=== PATIENT | male | born 1950 | race Caucasian/White ===

== ENCOUNTER 2020-10-13 13:11 | Inpatient (IN) | payer OTHER, SELFPAY ==
[2020-10-13] VITALS (13 sets, daily range): BP systolic 92–145; BP diastolic 49–84; PULSE 81–105; RESP 22–37; TEMP 35.7–36.9; O2SAT 77–96; BMI 39.4
--- NOTE | ~2020-10-13 | XR_ITS ---
EXAMINATION: XR chest 1V portable DATE: 10/22/2020 05:33 INDICATION: COVID-19 pneumonia. ARDS. TECHNIQUE: A single frontal view of the chest was obtained. COMPARISON: Chest single view 10/21/2020 FINDINGS: There are airspace opacities in all lung zones bilaterally. No pleural effusion or pneumoth orax. The heart size is normal. There is a left chest wall pacer with leads in the right atrium and r ight ventricle. The endotracheal tube tip is 3.4 cm above the jarad. The nasogastric tube tip is bey ond the inferior margin of the radiograph, but at least to the stomach. A right subclavian central ve nous catheter is seen with tip in the superior vena cava. IMPRESSION: 1. Diffuse lung disease with mild worsening on the left, consistent with pneumonia versus acute respi ratory distress syndrome (ARDS). Reviewed, dictated and finalized at location A. IMPRESSION: 1. Diffuse lung disease with mild worsening on the left, consistent with pneumo nay versus acute respiratory distress syndrome (ARDS).
--- NOTE | ~2020-10-13 | XR_ITS ---
EXAMINATION: XR chest 1V portable DATE: 10/18/2020 06:05 INDICATION: Acute respiratory failure. COVID-19 pneumonia. TECHNIQUE: A single frontal view of the chest was obtained. COMPARISON: Chest single view 10/17/2020, chest CT 10/13/2020 FINDINGS: There are airspace opacities in all lung zones bilaterally. No pleural effusion or pneumoth orax. The heart size is normal. There is a left chest wall pacer with leads in the right atrium and r ight ventricle. The nasogastric tube tip is beyond the inferior margin of the radiograph, but at leas t to the stomach. The endotracheal tube tip is 2.5 cm above the jarad. A right subclavian central ve nous catheter is seen with tip in the superior vena cava. IMPRESSION: 1. Stable diffuse lung disease, consistent with COVID-19 pneumonia. Reviewed, dictated and finalized at location A.
--- NOTE | ~2020-10-13 | XR_ITS ---
EXAMINATION: XR chest 1V portable INDICATION: COVID 19 pneumonia TECHNIQUE: Portable AP chest at 0532 hours COMPARISON: 10/24/2020 FINDINGS: A right subclavian central venous catheter ends with its tip at the distal superior vena ca va. Patchy bilateral airspace opacities persist in all lung zones without significant change. There i s no pleural effusion or pneumothorax. The cardiomediastinal silhouette is stable. A dual-lead cardia c pacemaker of the left chest wall ends with leads in expected locations. IMPRESSION: 1. Stable diffuse lung disease, consistent with pneumonia and/or pulmonary edema and/or acute respira tory distress syndrome (ARDS). Reviewed, dictated and finalized at location A. IMPRESSION: 1. Stable diffuse lung disease, consistent with pneumonia and/or pulmonary marcia a and/or acute respiratory distress syndrome (ARDS).
--- NOTE | ~2020-10-13 | XR_ITS ---
EXAMINATION: XR chest 1V portable DATE: 10/13/2020 14:56 INDICATION: Shortness of breath TECHNIQUE: frontal view of the chest was obtained. COMPARISON: None FINDINGS: Reticular and patchy airspace opacities throughout both lungs. No pleural effusion or pneumothorax. T he cardiomediastinal silhouette is normal. Dual lead pacemaker seen with leads projecting over the ex pected locations of the right atrium and right ventricle. Moderate thoracic spondylosis. IMPRESSION: 1. Diffuse bilateral lung disease which could represent pulmonary edema or pneumonia. Reviewed, dictated and finalized at location A. IMPRESSION: 1. Diffuse bilateral lung disease which could represent pulmonary edema or pneu monia.
--- NOTE | ~2020-10-13 | XR_ITS ---
EXAMINATION: XR abdomen NG/feed tube insert DATE: 10/17/2020 09:34 INDICATION: Nasogastric tube placement. TECHNIQUE: A supine view of the abdomen was obtained. COMPARISON: None. FINDINGS: The lower abdomen is excluded. The nasogastric tube tip is in the stomach. IMPRESSION: 1. Nasogastric tube tip in the stomach. Reviewed, dictated and finalized at location A.
--- NOTE | ~2020-10-13 | XR_ITS ---
EXAMINATION: XR chest 1V portable EXAM DATE: 10/19/2020 09:40 INDICATION: Acute respiratory failure, COVID-19 pneumonia. TECHNIQUE: Portable AP frontal chest x-ray was obtained. Comparison is made to prior examination from 10/18/2020. FINDINGS: Endotracheal tube tip is 2-3 centimeters above the jarad. Feeding tube is in position as is the right subclavian venous line. There is a dual lead pacemaker/AICD seen with leads projecting o denny the expected locations of the right atrial appendage and right ventricle. Diffuse bilateral airspace disease with relative sparing of the upper lung zones, pneumonia and/or ed leonie. Probably COVID pneumonia given history provided. Small left pleural effusion. There is no pneu mothorax suspected. The cardiomediastinal silhouette is prominent but magnified on this AP techniqu e. Mild thoracic spondylosis. There is no significant interval change compared to prior exam. IMPRESSION: 1. Line and tube(s) in position. 2. Diffuse airspace disease unchanged. 3. Small left pleural effusion. Reviewed, dictated and finalized at location A.
--- NOTE | ~2020-10-13 | XR_ITS ---
EXAMINATION: XR chest 1V portable DATE: 10/20/2020 05:53 INDICATION: COVID-19 pneumonia. TECHNIQUE: A single frontal view of the chest was obtained. COMPARISON: Chest single view 10/19/2020 FINDINGS: There are airspace opacities in all lung zones bilaterally. No pleural effusion or pneumoth orax. The heart size is normal. There is a left chest wall pacer with leads in the right atrium and r ight ventricle. The endotracheal tube tip is 2.2 cm above the jarad. The nasogastric tube tip is in the stomach. IMPRESSION: 1. Diffuse lung disease with worsening on the right, consistent with COVID-19 pneumonia. Reviewed, dictated and finalized at location A. IMPRESSION: 1. Diffuse lung disease with worsening on the right, consistent with COVID-19 p neumonia.
--- NOTE | ~2020-10-13 | XR_ITS ---
XR chest 1V portable DATE: 10/24/2020 05:56 INDICATION: Covid 19 pneumonia, adult respiratory distress syndrome TECHNIQUE: Portable AP chest on 10/24/2020 at 0533 hours COMPARISON: 10/23/2020 portable AP chest at 0521 hours FINDINGS: ET and NG tubes have been removed since 10/23/2020. Right subclavian central venous catheter remains, with tip near superior cavoatrial junction. Left dual-lead pacemaker device with leads overlying right atrium and right ventricle. Cardiomegaly. There is pulmonary vascular congestion. There are extensive bilateral pulmonary infiltrates, increase d since 10/23/2020, consistent with bilateral pneumonia and/or pulmonary edema. IMPRESSION: Removal of ET and NG tubes Extensive bilateral infiltrates, increased since 10/23/2020 Reviewed, dictated and finalized at location A.
--- NOTE | ~2020-10-13 | XR_ITS ---
EXAMINATION: XR chest 1V portable DATE: 10/17/2020 05:57 INDICATION: Acute respiratory failure. COVID-19 pneumonia. TECHNIQUE: A single frontal view of the chest was obtained. COMPARISON: Chest single view 10/16/2020 FINDINGS: There are airspace opacities involving all lung zones bilaterally. No pleural effusion or p neumothorax. The heart size is normal. There is a left chest wall pacer with leads in the right atriu m and right ventricle. IMPRESSION: 1. Stable diffuse lung disease, consistent with COVID-19 pneumonia. Reviewed, dictated and finalized at location A.
--- NOTE | ~2020-10-13 | XR_ITS ---
EXAMINATION: XR chest 1V portable DATE: 10/16/2020 05:45 INDICATION: Acute respiratory failure. COVID-19 pneumonia. TECHNIQUE: A single frontal view of the chest was obtained. COMPARISON: Chest single view 10/15/2020, chest CT 10/13/2020 FINDINGS: There are patchy airspace opacities throughout the lungs bilaterally. No pleural effusion o r pneumothorax. The heart size is normal. There is a left chest wall pacer with leads in the right at rium and right ventricle. IMPRESSION: 1. Stable diffuse lung disease, consistent with COVID-19 pneumonia. Reviewed, dictated and finalized at location A.
--- NOTE | ~2020-10-13 | XR_ITS ---
EXAMINATION: XR chest 1V portable INDICATION: COVID 19 pneumonia TECHNIQUE: Portable AP chest at 0540 hours COMPARISON: 10/25/2020 FINDINGS: A right subclavian central venous catheter ends with its tip in the distal superior vena ca va. The cardiomediastinal silhouette is stable. Patchy bilateral airspace opacities persist without s ignificant change. There is no pleural effusion or pneumothorax. A dual-lead cardiac pacemaker of the left chest wall ends with leads in expected locations. IMPRESSION: 1. Stable diffuse lung disease, consistent with pneumonia and/or pulmonary edema and/or acute respira tory distress syndrome (ARDS). Reviewed, dictated and finalized at location A. IMPRESSION: 1. Stable diffuse lung disease, consistent with pneumonia and/or pulmonary marcia a and/or acute respiratory distress syndrome (ARDS).
--- NOTE | ~2020-10-13 | XR_ITS ---
XR chest 1V portable DATE: 10/15/2020 05:34 INDICATION: Acute respiratory failure. Covid 19 pneumonia. TECHNIQUE: Portable AP chest on 10/15/2020 at 0518 hours COMPARISON: 10/13/2020 portable AP chest FINDINGS: There are extensive diffuse bilateral pulmonary infiltrates, increased mildly in severity c ompared to 10/13/2020. No pleural effusion or pneumothorax is evident. Normal heart size. Left-sided dual-lead pacemaker with leads overlying right atrium and right ventric le. IMPRESSION: Extensive bilateral pulmonary infiltrates, mildly increased since 10/13/2020 Reviewed, dictated and finalized at location A.
--- NOTE | ~2020-10-13 | XR_ITS ---
EXAMINATION: XR chest port-a-cath/central DATE: 10/17/2020 09:53 INDICATION: Central line placement. TECHNIQUE: A single frontal view of the chest was obtained. COMPARISON: Chest single view at 9:20 AM FINDINGS: There are airspace opacities in all lung zones bilaterally. No pleural effusion or pneumoth orax. The heart size is normal. The endotracheal tube tip is 3.5 cm above the jarad. A right subclav jasson central venous catheter is seen with tip at the superior cavoatrial junction. The nasogastric tub e tip is in the stomach. There is a left chest wall pacer with leads in the right atrium and right ve ntricle. IMPRESSION: 1. Central line tip at superior cavoatrial junction. 2. Stable diffuse lung disease consistent with COVID-19 pneumonia. Reviewed, dictated and finalized at location A.
--- NOTE | ~2020-10-13 | XR_ITS ---
EXAMINATION: XR chest ET placement DATE: 10/17/2020 09:36 INDICATION: Intubation. TECHNIQUE: A single frontal view of the chest was obtained. COMPARISON: Chest single view 10/17/2020 at 5:16 AM FINDINGS: There are airspace opacities in all lung zones bilaterally. No pleural effusion or pneumoth orax. The heart size is normal. The endotracheal tube tip is 2.8 cm above the jarad. There is a left chest wall pacer with leads in the right atrium and right ventricle. The nasogastric tube tip is in the stomach. A right subclavian central venous catheter is seen with tip in the left brachiocephalic vein. IMPRESSION: 1. Stable diffuse lung disease, consistent with COVID-19 pneumonia. 2. Right subclavian central venous catheter tip in the left brachiocephalic vein. Reviewed, dictated and finalized at location A. IMPRESSION: 1. Stable diffuse lung disease, consistent with COVID-19 pneumonia. 2. Right subclavian central venous catheter tip in the left brachiocephalic vecatalina kamara.
--- NOTE | ~2020-10-13 | XR_ITS ---
XR chest 1V portable DATE: 10/23/2020 05:22 INDICATION: Covid 19 pneumonia. Adult respiratory distress syndrome. TECHNIQUE: Portable AP chest on 10/23/2020 at 0521 hours COMPARISON: 10/22/2020 portable AP chest at [address] pulmonary scan FINDINGS: There are persistent extensive patchy consolidating infiltrates scattered in both lung fiel ds, relatively stable since 10/22/2020. ET tube in satisfactory position 2.7 cm above jarad. NG tube in stomach. Left dual-lead pacemaker device with leads overlying right atrium and right ventricle. Heart size aisha ears within normal limits. There is slight if any pleural effusion. No pneumothorax. IMPRESSION: Extensive bilateral pulmonary infiltrates, not significantly changed since 10/22/2020 Reviewed, dictated and finalized at location A. IMPRESSION: Extensive bilateral pulmonary infiltrates, not significantly change d since 10/22/2020
--- NOTE | ~2020-10-13 | CT_ITS ---
EXAMINATION: CTA chest PE protocol DATE: 10/13/2020 15:23 INDICATION: Shortness of breath and elevated d-dimer. Covid-positive on 10/09/2020. TECHNIQUE: Computed tomography angiography (CTA) of the chest was performed with 100 mL Omnipaque-350 intravenous contrast timed to evaluate the pulmonary arteries. Coronal maximum intensity projection 3D-reconstructions were created by the technologist. Automated exposure control and iterative reconst ruction technique were employed. Exam dose: 910.16 mGy-cm total exam DLP. COMPARISON: 10/13/2020 portable AP chest FINDINGS: There is diagnostic contrast enhancement of the pulmonary arteries and no evidence of pulmo nary embolism. No thoracic aortic aneurysm or dissection. Normal heart size. There is minimal pericardial effusion. Bilateral mild hilar and mediastinal lymphadenopathy is noted, likely reactive. Extensive patchy groundglass infiltrates are scattered throughout all lobes of both lungs. IMPRESSION: Extensive patchy groundglass infiltrates scattered throughout both lungs, consistent wit h extensive bilateral pneumonia No evidence of pulmonary embolism Minimal pericardial effusion Reviewed, dictated and finalized at Location A. Reviewed, dictated and finalized at location A. IMPRESSION: Extensive patchy groundglass infiltrates scattered throughout both lungs, consistent with extensive bilateral pneumonia No evidence of pulmonary embolism Minimal pericardial effusion
--- NOTE | ~2020-10-13 | XR_ITS ---
EXAMINATION: XR chest 1V portable DATE: 10/21/2020 05:37 INDICATION: COVID-19 pneumonia. TECHNIQUE: A single frontal view of the chest was obtained. COMPARISON: Chest single view 10/20/2020 FINDINGS: There are airspace opacities in all lung zones bilaterally. No pleural effusion or pneumoth orax. The heart size is normal. The endotracheal tube tip is 3.6 cm above the jarad. There is a left chest wall pacer with leads in the right atrium and right ventricle. The nasogastric tube tip is in the stomach. IMPRESSION: 1. Diffuse lung disease with interval improvement, consistent with pneumonia versus acute respiratory distress syndrome (ARDS). Reviewed, dictated and finalized at location A. IMPRESSION: 1. Diffuse lung disease with interval improvement, consistent with pneumonia ve rsus acute respiratory distress syndrome (ARDS).
--- NOTE | 2020-10-13 13:26 | ECG_ITS ---
Measurements Intervals [place] Rate: 94 P: 41 [place]: 146 QRS: -66 QRSD: 100 T: 86 QT: 345 QTc: 432 Interpretive Statements SINUS RHYTHM LOW QRS VOLTAGE IN LIMB LEADS LEFT ANTERIOR FASCICULAR BLOCK BASELINE ARTIFACT- I, II, III, AVR, AVL, AVF, V2-V6 ABNORMAL ECG Electronically Signed On 10-13-2020 13:40:53 CDT by Dale Singleton D.O.
[2020-10-13 14:09] LABS: Basophils Absolute Auto 0.1 K/mm3 (0.0-0.1); Basophils Percent Auto 0.5 % (0.2-1.2); Eosinophils Percent Auto 0.2 % (0-4.4); Hematocrit 44.7 % (42.0-52.0); Hemoglobin 14.3 g/dL (14.0-18.0); Immature Granulocyte Absolute 0.24 K/mm3 (0.00-0.031); Immature Granulocyte Percent A 2.2 % (0-0.5); Lymphocytes Absolute Auto 0.84 K/mm3 (0.9-3.2); Lymphocytes Percent Auto 7.6 % (18.3-44.2); Mean Corpuscular Hemoglobin 29.8 pg (26-34); Mean Corpuscular Volume 93.1 fl (80-100); Mean Platelet Volume 10.2 fl (7.4-10.4); Monocytes Percent Auto 9.4 % (2.6-8.5); Neutrophils Absolute Auto 8.9 K/mm3 (1.3-6.7); Neutrophils Percent Auto 80.1 % (45.5-73.1); Nucleated Red Blood Cells Absolute Auto 0.1 K/mm3 (0.0-0.012); Nucleated Red Blood Cells Perc 0.9 % (0.0-0.2); Platelet Count Result 307 k/mm3 (150-375); Red Cell Distribution Width 15.2 % (11.5-14.5); White Blood Count 11.1 K/mm3 (4.5-10.0)
[2020-10-13] MEDS: ALBUTEROL SULFATE (*SP) AEROSOL 1 PUFF 4 PUFF INHALATION (14:22)
[2020-10-13] MEDS: ENOXAPARIN 120 MG/0.8 ML SYRINGE 110 MG SUB-Q (14:40)
[2020-10-13 14:47] LABS: Lactate Dehydrogenase 1559 U/L (313-618)
[2020-10-13 14:52] LABS: Base Excess ABG 1.3 mEq/l (+/-2.0); HCO3 ABG 24.2 mEq/l (22.0-26.0); Oxygen Saturation ABG 90.7 % (95.0-100.0); PO2 ABG 54.3 mmHg (80.0-100.0)
[2020-10-13 14:53] LABS: Alveolar/Arterial O2 Gradient 221.6 mmHg; Total Hemoglobin 14.2 g/dL (12.0-18.0)
[2020-10-13 14:54] LABS: Device NASAL CANNULA; Fractional Inspired Oxygen 44 %; Modified Allen's Test Pass; Oxygen Content ABG 17.6 %vol (16.0-22.0); Oxyhemoglobin 88.4 % THb (90.0-100.0); PO2 FiO2 Ratio Arterial Blood 1.23 %; Site Drawn LEFT RADIAL
[2020-10-13 14:55] LABS: PCO2 ABG 33.2 mmHg (35.0-45.0)
[2020-10-13 14:56] LABS: Anion Gap 6 mmol/L (8-16); Blood Urea Nitrogen 37 mg/dL (9-20); Calcium 7.9 mg/dL (8.4-10.2); Carbon Dioxide 27 mmol/L (22-30); Chloride 93 mmol/L (98-107); Estimated CRCL calculation 51 ml/min; Estimated Glomerular Filt Rate 50; Glucose 127 mg/dL (75-110); Potassium 4.4 mmol/L (3.4-5.0); Sodium 126 mmol/L (137-145)
--- NOTE | 2020-10-13 15:52 | PC.NURSE ---
Pt satting 84 on 6L of O2. MD consulted, requests 8L nasal cannula.
--- NOTE | 2020-10-13 15:56 | PC.NURSE ---
Pt satting mid to upper 80s on 8L of O2. aware.
--- NOTE | 2020-10-13 16:40 | PC.NURSE ---
Pt called, updated family member on pt status.
--- NOTE | 2020-10-13 16:56 | ED.SOB ---
HPI - SOB/Dyspnea General Chief Complaint: Shortness of Breath/Dyspnea Stated Complaint: shortness of breath, covid-19 Time Seen by Provider: 10/13/20 13:46 Source: patient Mode of arrival: ambulatory Limitations: no limitations History of Present Illness HPI Narrative: 70-year-old male Patient states his son tested positive Covid and the patient in turn was tested and positive for Covid at [facility] on September 29 He became symptomatic a day later with a cough and some aches and some initially very minimal dyspnea Over the past several days his shortness of breath has become progressively worse particularly with any exertion He does not have a fever Related Data Home Medications Medication Instructions Recorded Confirmed Vitamin D3 10/13/20 10/13/20 aspirin 81 mg PO DAILY 10/13/20 ezetimibe mg 10/13/20 fenofibrate nanocrystallized mg PO 10/13/20 lisinopril 10/13/20 metformin mg 10/13/20 Allergies Allergy/AdvReac Type Severity Reaction Status Date / Time No Known Allergies Allergy Verified 10/13/20 16:44 Review of Systems Review of Systems: All systems reviewed & are unremarkable except as noted in HPI and below Constitutional: Constitutional: Reports chills, Reports fatigue, Reports fever(s), Denies headache(s) and Reports weakness Eyes: Eyes: Reports no additional eye complaints and Denies change in vision ENT: Denies headache(s), Denies nasal congestion and Denies sore throat Cardiovascular: Cardiovascular: Denies chest pain and Denies dyspnea Respiratory: Respiratory: Reports cough and Reports dyspnea Gastrointestinal: Gastrointestinal: Denies abdominal pain, Denies constipation, Denies diarrhea, Reports nausea and Denies vomiting Genitourinary: Genitourinary: Denies dysuria and Denies urinary frequency Musculoskeletal: Musculoskeletal: Reports myalgias, Denies deformity, Denies arthralgias, Denies joint swelling and Denies numbness Integumentary/Breasts: Skin/Breast: Denies rash and Denies wounds Neurologic: Reports headache(s), Denies focal weakness and Denies numbness Psychiatric: Psychiatric: Reports no additional psychiatric complaints Endocrine: Endocrine: Reports no additional endocrine complaints Hematologic/Lymphatic: Hematologic/Lymphatic: Reports no additional hematologic/lymphatic complaints Allergic/Immunologic: Allergic/Immunologic: Reports no additional allergic/immunologic complaints Exam Const: General: cooperative and alert Orientation/consciousness: patient oriented x3 (alert) HENMT: Head: normal to inspection, normocephalic and atraumatic Ears: external ears normal General nose exam: no epistaxis Eyes: Conjunctivae: conjunctivae normal EOM: EOMs intact bilaterally Neck: Neck: normal visual inspection, supple and no JVD Resp: Effort & Inspection: not labored and tachypneic Auscultation: crackles and other (BS =) Cardio: Rate: regular rate Rhythm: regular rhythm Heart sounds: no murmurs GI: GI Palp: Yes Soft to palpation and No Tenderness to palpation present (GI) Skin: General skin exam: normal color and no rashes or lesions noted Neuro: General: patient oriented x3 (alert) and moves all extremities Speech: normal speech Extrem: General: normal to inspection and no pedal edema Psych: Affect: normal affect Course Course Emergency Course: Because of presumed Covid pneumonia he did not receive fluid boluses but was fully anticoagulated received doxycycline in case of atypical superinfection and steroids; he was reasonably comfortable with an O2 requirement of 8 to 10 L keeping his oxygen saturation between 88 and 92%; he was discussed with hospitalist and registration specialist for admission; likely it is too late in his course for remdesivir to be of benefit Vital Signs Vital signs: Vital Signs Temperature 35.9 C L 10/13/20 13:19 Pulse Rate 105 H 10/13/20 13:19 Respiratory Rate 26 H 10/13/20 13:19 Blood Pressure 92/49 L 10/13/20 13:19 Pulse
[2020-10-13] MEDS: DEXAMETHASONE SOD PHOS INJ 4 MG/ML VIAL 6 MG IV PUSH (16:58)
--- NOTE | 2020-10-13 18:37 | ADMGEN ---
This patient, Kimani Hinds, was admitted to Intensive Care Unit-2. Patient/family oriented to hospital policies and general routines including ID bracelet, bed and alarms, visiting hours, pain management, procedures, bathroom and other care routines, personal items, smoking policy, room service/diet, and visiting hours. Information on how to activate the Rapid Response Team has been discussed. Patient/Family are encouraged to report perceived risks to care and to ask questions if they do not understand what they are told or what they should do.
--- NOTE | 2020-10-13 19:28 | PM.IMHP ---
H&P: HPI History of Present Illness Date/Time: 10/13/20 19:28 Chief Complaint: Shortness of breath++ Narrative: This is a pleasant 70 year old male with known history of a previous arrhythmia s/p pacemaker, HTN, and hyperlipidemia who presented to the hospital with a complaint of increased shortness of breath, poorly productive hacking cough, and body aches. The patient tested positive for COVID-19 on September 29 and believes that since then he has only gotten worse. He reports that his son originally contracted COVID-19 and spread it to him and his . The patient denies any chest pain, nausea, vomiting, abdominal pain, dysuria, hematuria, or rectal bleeding. He did have diarrhea although this has subsided. He has had sporadic fever but not for the past few days. He was evaluated in the ER today and CXR demonstrated diffuse bilateral lung disease. CTA was performed which showed extensive patchy groundglass infiltrates scattered throughout both lungs. The patient was treated with IV antibiotics and decadron IV. On my encounter with the patient tonight he is comfortable on high flow oxygen and does have a nonproductive cough. He states he feels somewhat better since being admitted today. No other complaints at this time. Review of Systems Review of Systems: All systems reviewed & are unremarkable except as noted in HPI and below PMFSH Past Medical History Medical History (Updated 10/13/20 @ 19:37 by Roc Olguin MD) Hyperlipidemia Hypertension Social History Social History Smoking status: Former smoker Tobacco type: cigarettes Alcohol intake: unknown Substance use: unknown Spiritual care concerns: No Comments past surgical and family histories reviewed and noncontributory. Meds Home Medications and Allergies Home Medications Medication Instructions Recorded Confirmed Type Vitamin D3 1 tablet PO DAILY 10/13/20 10/13/20 History aspirin 81 mg PO DAILY 10/13/20 10/13/20 History ezetimibe 10 mg PO DAILY 10/13/20 10/13/20 History fenofibrate nanocrystallized 145 mg PO DAILY 10/13/20 10/13/20 History lisinopril 5 mg PO DAILY 10/13/20 10/13/20 History metformin 500 mg PO DAILY 10/13/20 10/13/20 History Allergies Allergy/AdvReac Type Severity Reaction Status Date / Time No Known Allergies Allergy Verified 10/13/20 16:44 Vital Signs Vital Signs - 24 hr 10/13/20 13:19 10/13/20 13:33 10/13/20 13:46 Temperature 35.9 C L Pulse Rate 105 H 94 90 Respiratory Rate 26 H 36 H Blood Pressure 92/49 L 113/60 Pulse Oximetry 77 L 92 94 10/13/20 14:46 10/13/20 15:53 10/13/20 16:17 Temperature Pulse Rate 91 91 89 Respiratory Rate 23 H 30 H 34 H Blood Pressure 93/78 L 145/80 H 130/83 Pulse Oximetry 81 L 91 87 L 10/13/20 17:17 10/13/20 17:50 10/13/20 18:30 Temperature 35.7 C L Pulse Rate 87 84 95 Respiratory Rate 35 H 24 H 37 H Blood Pressure 109/62 112/66 Pulse Oximetry 92 87 L 92 10/13/20 18:35 Temperature Pulse Rate 85 Respiratory Rate 24 H Blood Pressure Pulse Oximetry 92 Exam Const: General: cooperative, alert, awake and ill appearing Nutritional Appearance: obese Orientation/consciousness: patient oriented x3 HENMT: Head: normal to inspection General nose exam: Normal external nose present Face and sinus: normal facial exam Mouth: Yes Normal oral and palatal mucosa present and Yes oropharynx normal Eyes: Pupils: Equal, round and reactive pupils present EOM: EOMs intact bilaterally Neck: Neck: supple and no JVD Thyroid: thyroid normal Lymphatic: lymphadenopathy not noted Resp: Effort & Inspection: normal respiratory effort Auscultation: rales bilateral and diffuse and diminished lung sounds Cardio: Rate: regular rate Rhythm: regular rhythm Heart sounds: no murmurs GI: Inspection: normal to inspection Auscultation: normal bowel sounds Skin: General skin exam: normal color and no rashes or lesions noted Neuro: General: patient oriented
[2020-10-13] MEDS: ALBUTEROL SULFATE (*SP) AEROSOL 1 PUFF 2 PUFF INHALATION (20:59)
[2020-10-13] MEDS: LACTATED RINGERS 1,000 ML 50 ML IV CONT (21:11)
[2020-10-14] VITALS (28 sets, daily range): BP systolic 92–142; BP diastolic 45–86; PULSE 30–93; RESP 21–43; TEMP 35.7–37.3; O2SAT 89–98
[2020-10-14] MEDS: ALBUTEROL SULFATE (*SP) INHALER 2 PUFF INHALATION (02:17)
[2020-10-14 04:33] LABS: Basophils Percent Auto 0.4 % (0.2-1.2); Hematocrit 36.6 % (42.0-52.0); Immature Granulocyte Absolute 0.32 K/mm3 (0.00-0.031); Immature Granulocyte Percent A 2.8 % (0-0.5); Lymphocytes Absolute Auto 0.67 K/mm3 (0.9-3.2); Mean Corpuscular HGB Conc 32.8 g/dl (32-36); Mean Corpuscular Hemoglobin 29.6 pg (26-34); Mean Corpuscular Volume 90.1 fl (80-100); Mean Platelet Volume 10.3 fl (7.4-10.4); Monocytes Percent Auto 9.2 % (2.6-8.5); Neutrophils Absolute Auto 9.2 K/mm3 (1.3-6.7); Neutrophils Percent Auto 81.6 % (45.5-73.1); Nucleated Red Blood Cells Absolute Auto 0.1 K/mm3 (0.0-0.012); Nucleated Red Blood Cells Perc 0.5 % (0.0-0.2); Platelet Count Result 321 k/mm3 (150-375); Red Blood Count 4.06 M/mm3 (4.6-6.20); Red Cell Distribution Width 14.9 % (11.5-14.5); White Blood Count 11.2 K/mm3 (4.5-10.0)
[2020-10-14 04:50] LABS: Anion Gap 5 mmol/L (8-16); Blood Urea Nitrogen 38 mg/dL (9-20); Calcium 7.5 mg/dL (8.4-10.2); Carbon Dioxide 27 mmol/L (22-30); Chloride 92 mmol/L (98-107); Estimated CRCL calculation 55 ml/min; Estimated Glomerular Filt Rate 55; Glucose 152 mg/dL (75-110); Magnesium 2.4 mg/dL (1.6-2.3); Potassium 4.7 mmol/L (3.4-5.0); Sodium 124 mmol/L (137-145)
[2020-10-14 05:28] LABS: Alveolar/Arterial O2 Gradient 590.3 mmHg; Base Excess ABG 1.6 mEq/l (+/-2.0); Fractional Inspired Oxygen 100 %; HCO3 ABG 24.9 mEq/l (22.0-26.0); Oxygen Content ABG 17.6 %vol (16.0-22.0); Oxygen Saturation ABG 97.2 % (95.0-100.0); Oxyhemoglobin 95.9 % THb (90.0-100.0); PO2 ABG 87.7 mmHg (80.0-100.0); PO2 FiO2 Ratio Arterial Blood 0.88 %
[2020-10-14 05:29] LABS: Device NON-REBREATHER MASK; Modified Allen's Test Pass; Site Drawn LEFT RADIAL
[2020-10-14] MEDS: ASCORBIC ACID 500 MG TABLET 1000 MG PO (08:03)
[2020-10-14] MEDS: ASPIRIN 81 MG ENTERIC TABLET PO (08:04)
[2020-10-14] MEDS: EZETIMIBE 10 MG TABLET PO (08:04)
[2020-10-14] MEDS: CHOLECALCIFEROL 1,000 UNITS TABLET 5000 UNITS PO (08:04)
[2020-10-14] MEDS: FENOFIBRATE NANOCRYSTALLIZED 145 MG TABLET PO (08:04)
[2020-10-14] MEDS: ENOXAPARIN 40 MG/0.4 ML SYRINGE SUB-Q ×2 (08:04→20:03)
[2020-10-14] MEDS: ZINC SULFATE 220 MG CAPSULE PO (08:04)
[2020-10-14] MEDS: DEXAMETHASONE SOD PHOS INJ 4 MG/ML VIAL 6 MG IV PUSH (08:05)
[2020-10-14] MEDS: ALBUTEROL SULFATE NEB 2.5 MG/0.5 ML INH INHALATION ×3 (08:07→20:28)
[2020-10-14] MEDS: BUDESONIDE RESPULE NEB 0.5 MG/2 ML AMP INHALATION ×2 (08:07→20:28)
[2020-10-14] MEDS: IPRATROPIUM BR 0.02% INH SOLN 0.5 MG/2.5 ML VIAL INHALATION ×3 (08:07→20:28)
--- NOTE | 2020-10-14 08:23 | WPDCNINT ---
Assessment and Plan Assessment and plan (1) Acute respiratory failure with hypoxia: Code(s): J96.01 - Acute respiratory failure with hypoxia Status: Acute Assessment and Plan: Acute respiratory failure likely related to COVID-19 pneumonia and/or bacterial pneumonia -patient initially was on 8 L oxygen via nasal cannula and has had increased oxygen requirements -currently on BiPAP, change to 12/6 from 15/7, 60% FiO2 -chest x-ray and ABGs reviewed -continue azithromycin and ceftriaxone -added Pulmicort nebulized -continue albuterol and Atrovent nebs -will alternate patient with high-flow therapy and BiPAP (2) Pneumonia due to COVID-19 virus: Code(s): U07.1 - COVID-19; J12.82 - Pneumonia due to coronavirus disease 2019 Status: Acute Assessment and Plan: SARS-CoV-2 PCR 09/29/2020 -patient is out of the window for Remdesivir -patient has been started on dexamethasone, she did on 10/13/2020 -inflammatory markers are elevated, will continue to trend (3) Hyperlipidemia: Qualifiers: Hyperlipidemia type: unspecified Qualified Code(s): E78.5 - Hyperlipidemia, unspecified Code(s): E78.5 - Hyperlipidemia, unspecified Status: Chronic Assessment and Plan: Fenofibrate and ezetimibe (4) Hypertension: Qualifiers: Hypertension type: unspecified Qualified Code(s): I10 - Essential (primary) hypertension Code(s): I10 - Essential (primary) hypertension Status: Chronic Assessment and Plan: Continue lisinopril (5) DVT prophylaxis: Code(s): Z29.9 - Encounter for prophylactic measures, unspecified Status: Acute Assessment and Plan: DVT prophylaxis: Lovenox 40 mg subcutaneously Q12H Additional Plan Discussed with patient updated with his condition and plan of care. I answered all questions, is aware that he will be alternating between high-flow therapy with Airvo and BiPAP Code status: Full code Critical care time spent: 45 minutes This dictation may have been done utilizing a voice recognition system. Attempts have been made to correct errors. However, there may be uncorrected grammatical, spelling, and recognition errors present. Due to a high probability of clinically significant, life threatening deterioration, the patient required my highest level of preparedness to intervene emergently and I personally spent this critical care time directly and personally managing the patient. This critical care time included obtaining a history; examining the patient; pulse oximetry; ordering and review of studies; arranging urgent treatment with development of a management plan; evaluation of patient's response to treatment; frequent reassessment; and discussions with other providers. It was exclusive of separately billable procedures and treating other patients and teaching time. Please see Assessment and Plan section and the rest of the note for further information on patient assessment and treatment [employer] Consult Note Consult date: 10/14/20 Time Seen: 07:06 Reason for consult: Respiratory failure, COVID-19 pneumonia HPI: Kimani Hinds is a 70 year old male past medical history of hyperlipidemia, hypertension, history of previous arrhythmia status post pacemaker, overweight with a BMI of 39 presented to the ED on 07/14/2020 with complains of increasing and worsening shortness of breath, productive cough and body aches. Patient tested positive for COVID-19 on 09/29/2020 and since then he thinks he is getting worse. His son reportedly contracted COVID-19 and that is all he probably contracted along with his . The patient denies any chest pain, nausea, vomiting, abdominal pain. He also had some sporadic fevers but not for the past few days. In the ER chest x-ray demonstrated diffuse bilateral lung disease, CTA chest showed extensive patchy ground-glass infiltrates scattered throughout both lungs. Patient was started on IV dexamethas
[2020-10-14] MEDS: lisinopriL 5 MG TABLET PO (09:50)
--- NOTE | 2020-10-14 12:56 | PM.IMPN ---
Progress Note: A&P Assessment and Plan (1) Hyperlipidemia: Qualifiers: Hyperlipidemia type: unspecified Qualified Code(s): E78.5 - Hyperlipidemia, unspecified Code(s): E78.5 - Hyperlipidemia, unspecified Status: Chronic (2) Hypertension: Qualifiers: Hypertension type: unspecified Qualified Code(s): I10 - Essential (primary) hypertension Code(s): I10 - Essential (primary) hypertension Status: Chronic (3) Pneumonia due to COVID-19 virus: Code(s): U07.1 - COVID-19; J12.82 - Pneumonia due to coronavirus disease 2019 Status: Acute (4) Acute respiratory failure with hypoxia: Code(s): J96.01 - Acute respiratory failure with hypoxia Status: Acute Additional Plan # Acute hypoxic respiratory failre: due to COVID 19. in ICU on BIPAP and airvo. cta negative for PE> cxr with diffuse bilateral pneumonia. covid positive. on empiric cef and azith for bacterial pnemoina. pumicort, bronchodlators contineu current treatment and plan, critically ill # Pneumoinia due to covid 19 virus: droplet isolation. on decadron. # Hypertension: Monitor blood pressure. Resume Lisinopril in am. # Hyperlipidemia:Continue fenofibrate and ezetimibe. # DVT proh; Lovenox Subjective Date/time seen: 10/14/20 12:56 patient seen this afternon. on bipap. lowered setting since this am. he feels okay. he is less sob but on continous bipap. he is at 50% fio2 with setting of 12/6. no fever, chlls. no nausea, vomiting. no leg swelling. Review of Systems Review of Systems: Narrative: - CONSTITUTIONAL: Denies weight loss, fever and chills. - HEENT: Denies changes in vision and hearing - RESPIRATORY: reports SOB and cough. - CV: Denies palpitations and CP. - GI: Denies abdominal pain, nausea, vomiting and diarrhea. - : Denies dysuria and urinary frequency. - MSK: Denies myalgia and joint pain. - SKIN: Denies rash and pruritus. - NEUROLOGICAL: Denies headache and syncope. - PSYCHIATRIC: Denies recent changes in mood. Denies anxiety and depression. All systems reviewed & are unremarkable except as noted in HPI and below Exam Narrative: Exam Narrative: GENERAL: The patient is well developed, not in acute distress, currenlt on bipap at 12/6 with 50% FIO2 HEENT: Nonicteric sclerae, PERRLA, EOMI. Oropharynx clear. Moist mucous membranes. Conjunctivae appear well perfused. CHEST: Chest wall is nontender. HEART: Regular rate and rhythm without murmur, rubs, or gallops LUNGS:decreased breath sound bilaterally. no respiratory distress ABDOMEN: Soft, positive bowel sounds, non-tender, no organomegaly. SKIN: No rash, no excessive bruising, petechiae, or purpura. NEUROLOGIC: Cranial nerves II-XII intact, alert and oriented x 3, no gross motor deficits EXTREMITIES: no edema, cyanosis or clubbing Objective Data Vital Signs Vital Signs: Vital Signs - 24 hr 10/13/20 13:19 10/13/20 13:33 10/13/20 13:46 Temperature 96.7 F L Pulse Rate 105 H 94 90 Respiratory Rate 26 H 36 H Blood Pressure 92/49 L 113/60 Pulse Oximetry 77 L 92 94 10/13/20 14:46 10/13/20 15:53 10/13/20 16:17 Temperature Pulse Rate 91 91 89 Respiratory Rate 23 H 30 H 34 H Blood Pressure 93/78 L 145/80 H 130/83 Pulse Oximetry 81 L 91 87 L 10/13/20 17:17 10/13/20 17:50 10/13/20 18:30 Temperature 96.3 F L Pulse Rate 87 84 95 Respiratory Rate 35 H 24 H 37 H Blood Pressure 109/62 112/66 Pulse Oximetry 92 87 L 92 10/13/20 18:35 10/13/20 20:00 10/13/20 21:01 Temperature 98.5 F Pulse Rate 85 84 95 Respiratory Rate 24 H 28 H 22 H Blood Pressure 106/84 Pulse Oximetry 92 96 93 10/13/20 22:00 10/14/20 00:00 10/14/20 02:00 Temperature 99.1 F Pulse Rate 95 82 68 Respiratory Rate 28 H 26 H 30 H Blood Pressure 107/72 100/62 92/68 L Pulse Oximetry 95 90 90 10/14/20 04:00 10/14/20 05:05 10/14/20 05:27 Temperature Pulse Rate 79 30 L Respiratory Rate 26 H 29 H Blood Pressure 123/45 L P
[2020-10-14] MEDS: guaiFENesin/DEXTROMETHORPHAN 10 ML UDC 5 ML PO (14:33)
[2020-10-15] VITALS (29 sets, daily range): BP systolic 103–158; BP diastolic 53–78; PULSE 68–95; RESP 22–42; TEMP 36.1–37.2; O2SAT 89–100
[2020-10-15] MEDS: IPRATROPIUM BR 0.02% INH SOLN 0.5 MG/2.5 ML VIAL INHALATION ×4 (02:45→22:11)
[2020-10-15] MEDS: ALBUTEROL SULFATE NEB 2.5 MG/0.5 ML INH INHALATION ×4 (02:45→22:11)
[2020-10-15 06:01] LABS: Basophils Absolute Auto 0.1 K/mm3 (0.0-0.1); Basophils Percent Auto 0.4 % (0.2-1.2); Eosinophils Percent Auto 0.2 % (0-4.4); Hematocrit 38.6 % (42.0-52.0); Hemoglobin 12.5 g/dL (14.0-18.0); Immature Granulocyte Absolute 0.63 K/mm3 (0.00-0.031); Immature Granulocyte Percent A 3.8 % (0-0.5); Lymphocytes Absolute Auto 0.71 K/mm3 (0.9-3.2); Lymphocytes Percent Auto 4.3 % (18.3-44.2); Mean Corpuscular HGB Conc 32.4 g/dl (32-36); Mean Corpuscular Hemoglobin 29.8 pg (26-34); Mean Corpuscular Volume 92.1 fl (80-100); Mean Platelet Volume 10.4 fl (7.4-10.4); Monocytes Absolute Auto 1.5 K/mm3 (0.1-0.6); Monocytes Percent Auto 8.9 % (2.6-8.5); Neutrophils Absolute Auto 13.6 K/mm3 (1.3-6.7); Neutrophils Percent Auto 82.4 % (45.5-73.1); Nucleated Red Blood Cells Absolute Auto 0.1 K/mm3 (0.0-0.012); Nucleated Red Blood Cells Perc 0.3 % (0.0-0.2); Platelet Count Result 390 k/mm3 (150-375); Red Blood Count 4.19 M/mm3 (4.6-6.20); Red Cell Distribution Width 15.1 % (11.5-14.5); White Blood Count 16.5 K/mm3 (4.5-10.0)
[2020-10-15 06:11] LABS: D Dimer 1.14 ug/mL (<0.48)
[2020-10-15 06:15] LABS: Potassium 4.4 mmol/L (3.4-5.0)
[2020-10-15 06:19] LABS: Alanine Aminotransferase 21 U/L (4-50); Albumin Level 3.2 g/dL (3.5-5.1); Alkaline Phosphatase 60 U/L (38-126); Anion Gap 6 mmol/L (8-16); Aspartate Amino Transferase 75 U/L (17-59); Bilirubin,Total 1.1 mg/dL (0.2-1.3); Blood Urea Nitrogen 37 mg/dL (9-20); CRP 8.8 mg/dL (<1.0); Calcium 8.2 mg/dL (8.4-10.2); Carbon Dioxide 28 mmol/L (22-30); Chloride 93 mmol/L (98-107); Estimated CRCL calculation 71 ml/min; Estimated Glomerular Filt Rate > 60; Glucose 166 mg/dL (75-110); Lactate Dehydrogenase 1802 U/L (313-618); Magnesium 2.8 mg/dL (1.6-2.3); Phosphorus 2.6 mg/dL (2.5-4.5); Sodium 127 mmol/L (137-145)
[2020-10-15] MEDS: DEXAMETHASONE SOD PHOS INJ 4 MG/ML VIAL 6 MG IV PUSH (08:07)
[2020-10-15] MEDS: ENOXAPARIN 40 MG/0.4 ML SYRINGE SUB-Q ×2 (08:07→22:17)
--- NOTE | 2020-10-15 08:10 | WPDINTPN ---
Progress Note: A&P Assessment and Plan (1) Acute respiratory failure with hypoxia: Code(s): J96.01 - Acute respiratory failure with hypoxia Status: Acute Assessment and Plan: Acute respiratory failure likely related to COVID-19 pneumonia and/or bacterial pneumonia -patient initially was on 8 L oxygen via nasal cannula and has had increased oxygen requirements -currently on BiPAP, 12/6, 60% FiO2 -chest x-ray and ABGs reviewed -continue azithromycin and ceftriaxone -continue Pulmicort nebulized -continue albuterol and Atrovent nebs -will alternate patient with high-flow therapy and BiPAP -up in chair, encourage incentive spirometry (2) Pneumonia due to COVID-19 virus: Code(s): U07.1 - COVID-19; J12.82 - Pneumonia due to coronavirus disease 2019 Status: Acute Assessment and Plan: SARS-CoV-2 PCR 09/29/2020 -patient is out of the window for Remdesivir -patient has been started on dexamethasone, initiated on 10/13/2020 -inflammatory markers are elevated, will continue to trend (3) Hyperlipidemia: Qualifiers: Hyperlipidemia type: unspecified Qualified Code(s): E78.5 - Hyperlipidemia, unspecified Code(s): E78.5 - Hyperlipidemia, unspecified Status: Chronic Assessment and Plan: Fenofibrate and ezetimibe (4) Hypertension: Qualifiers: Hypertension type: unspecified Qualified Code(s): I10 - Essential (primary) hypertension Code(s): I10 - Essential (primary) hypertension Status: Chronic Assessment and Plan: Continue lisinopril (5) DVT prophylaxis: Code(s): Z29.9 - Encounter for prophylactic measures, unspecified Status: Acute Assessment and Plan: DVT prophylaxis: Lovenox 40 mg subcutaneously Q12H Additional Plan Discussed with patient updated with his condition and plan of care. I answered all questions, is aware that he will be alternating between high-flow therapy with Airvo and BiPAP Code status: Full code Critical care time spent: 34 minutes This dictation may have been done utilizing a voice recognition system. Attempts have been made to correct errors. However, there may be uncorrected grammatical, spelling, and recognition errors present. Due to a high probability of clinically significant, life threatening deterioration, the patient required my highest level of preparedness to intervene emergently and I personally spent this critical care time directly and personally managing the patient. This critical care time included obtaining a history; examining the patient; pulse oximetry; ordering and review of studies; arranging urgent treatment with development of a management plan; evaluation of patient's response to treatment; frequent reassessment; and discussions with other providers. It was exclusive of separately billable procedures and treating other patients and teaching time. Please see Assessment and Plan section and the rest of the note for further information on patient assessment and treatment Subjective Date/time seen: 10/15/20 08:10 Interval history: Reason for consult: Respiratory failure, COVID-19 pneumonia 10/15/2020: Patient seen and examined in the ICU, is awake, alert, answers to questions appropriately. Remains on BiPAP 12/6, 60% FiO2 with adequate O2 sats. Patient has had a adequate urine output, afebrile and hemodynamically stable. Patient states he feels slightly better, complains of intermittent cough. Denies any chest pain, nausea, vomiting, abdominal pain Review of Systems Review of Systems: All systems reviewed & are unremarkable except as noted in HPI and below Exam Const: General: comfortable and no acute distress HENMT: Other: BiPAP mask in place Eyes: Sclera: sclerae normal Pupils: Equal, round and reactive pupils present Neck: Neck: supple Resp: Effort & Inspection: normal respiratory effort Auscultation: rales and diminished lung sounds (At bases) Other: Co
[2020-10-15] MEDS: BUDESONIDE RESPULE NEB 0.5 MG/2 ML AMP INHALATION ×2 (08:12→22:11)
[2020-10-15] MEDS: BENZONATATE 100 MG CAPSULE 200 MG PO ×3 (09:12→17:56)
[2020-10-15] MEDS: ASPIRIN 81 MG ENTERIC TABLET PO (09:13)
[2020-10-15] MEDS: guaiFENesin/DEXTROMETHORPHAN 10 ML UDC 5 ML PO ×3 (09:13→22:18)
[2020-10-15] MEDS: FENOFIBRATE NANOCRYSTALLIZED 145 MG TABLET PO (09:14)
[2020-10-15] MEDS: EZETIMIBE 10 MG TABLET PO (09:14)
[2020-10-15] MEDS: ZINC SULFATE 220 MG CAPSULE PO (09:14)
[2020-10-15] MEDS: ASCORBIC ACID 500 MG TABLET 1000 MG PO (09:16)
[2020-10-15] MEDS: CHOLECALCIFEROL 1,000 UNITS TABLET 5000 UNITS PO (09:16)
[2020-10-15] MEDS: lisinopriL 5 MG TABLET PO (09:16)
--- NOTE | 2020-10-15 16:06 | PM.IMPN ---
Progress Note: A&P Additional Plan # Acute hypoxic respiratory failre: due to COVID 19. in ICU on BIPAP and airvo. cta negative for PE> cxr with diffuse bilateral pneumonia. covid positive. on empiric cef and azith for bacterial pnemoina. pumicort, bronchodlators contineu current treatment and plan, critically ill # Pneumoinia due to covid 19 virus: droplet isolation. on decadron. # Hypertension: Monitor blood pressure. lisinopril # Hyperlipidemia:Continue fenofibrate and ezetimibe. # DVT proh; Lovenox Subjective Date/time seen: 10/15/20 16:06 Interval history: no overnight events. he is on airvo. was on bipap overnight. breathing is doing okay. he wants to eat regular meals. no fever, chills. sob on exertion. on 88% FIO2 at 60 L min Review of Systems Review of Systems: Narrative: - CONSTITUTIONAL: Denies weight loss, fever and chills. - HEENT: Denies changes in vision and hearing - RESPIRATORY:reports SOB and cough. - CV: Denies palpitations and CP. - GI: Denies abdominal pain, nausea, vomiting and diarrhea. - : Denies dysuria and urinary frequency. - MSK: Denies myalgia and joint pain. - SKIN: Denies rash and pruritus. - NEUROLOGICAL: Denies headache and syncope. - PSYCHIATRIC: Denies recent changes in mood. Denies anxiety and depression. All systems reviewed & are unremarkable except as noted in HPI and below Constitutional: Constitutional: Reports fatigue and Reports weakness Neurologic: Reports weakness Endocrine: Endocrine: Reports fatigue Exam Narrative: Exam Narrative: GENERAL: The patient is well developed, not in acute distress, currently on airvo HEENT: Nonicteric sclerae, PERRLA, EOMI. Oropharynx clear. Moist mucous membranes. Conjunctivae appear well perfused. CHEST: Chest wall is nontender. HEART: Regular rate and rhythm without murmur, rubs, or gallops LUNGS:decreased breath sound bilaterally. no respiratory distress ABDOMEN: Soft, positive bowel sounds, non-tender, no organomegaly. SKIN: No rash, no excessive bruising, petechiae, or purpura. NEUROLOGIC: Cranial nerves II-XII intact, alert and oriented x 3, no gross motor deficits EXTREMITIES: no edema, cyanosis or clubbing Objective Data Vital Signs Vital Signs: Vital Signs - 24 hr 10/14/20 17:25 10/14/20 18:00 10/14/20 20:00 Temperature 98 F Pulse Rate 78 73 76 Respiratory Rate 21 H 34 H 28 H Blood Pressure 117/67 121/67 Pulse Oximetry 94 91 94 10/14/20 20:28 10/14/20 20:31 10/14/20 20:40 Temperature Pulse Rate 70 71 77 Respiratory Rate 33 H 32 H 30 H Blood Pressure Pulse Oximetry 95 10/14/20 22:00 10/14/20 23:15 10/15/20 00:00 Temperature 99.0 F Pulse Rate 77 66 79 Respiratory Rate 24 H 30 H 24 H Blood Pressure 130/86 137/67 Pulse Oximetry 94 98 93 10/15/20 02:00 10/15/20 02:47 10/15/20 02:48 Temperature Pulse Rate 78 77 68 Respiratory Rate 22 H 33 H 33 H Blood Pressure 126/56 L Pulse Oximetry 91 93 10/15/20 02:53 10/15/20 04:00 10/15/20 05:28 Temperature 97.4 F L Pulse Rate 80 69 77 Respiratory Rate 34 H 26 H 35 H Blood Pressure 109/60 Pulse Oximetry 89 L 91 10/15/20 06:00 10/15/20 07:59 10/15/20 08:00 Temperature 97.8 F 97 F L Pulse Rate 68 77 77 Respiratory Rate 24 H 36 H Blood Pressure 110/67 113/67 Pulse Oximetry 96 92 92 10/15/20 08:12 10/15/20 09:21 10/15/20 10:00 Temperature Pulse Rate 85 89 Respiratory Rate 42 H 36 H Blood Pressure 116/58 L Pulse Oximetry 90 93 91 10/15/20 11:24 10/15/20 12:00 10/15/20 14:00 Temperature Pulse Rate 85 91 Respiratory Rate 34 H 34 H Blood Pressure 105/61 112/63 Pulse Oximetry 92 95 91 10/15/20 15:29 10/15/20 16:00 Temperature 97 F L Pulse Rate 78 Respiratory Rate 32 H Blood Pressure 111/63 Pulse Oximetry 95 92 Intake/Output Intake/Output: Intake & Output 10/12/20 10/13/20 10/14/20 10/15/20 23:59 23:59 23:59 23:59 Intake Total 400 1210 760 Output Total 2049 549 Balance
[2020-10-16] VITALS (28 sets, daily range): BP systolic 109–140; BP diastolic 61–86; PULSE 67–96; RESP 20–42; TEMP 35.6–36.2; O2SAT 82–99
[2020-10-16] MEDS: guaiFENesin/DEXTROMETHORPHAN 10 ML UDC 5 ML PO ×4 (02:46→21:16)
[2020-10-16] MEDS: IPRATROPIUM BR 0.02% INH SOLN 0.5 MG/2.5 ML VIAL INHALATION ×4 (03:11→20:19)
[2020-10-16] MEDS: ALBUTEROL SULFATE NEB 2.5 MG/0.5 ML INH INHALATION ×4 (03:11→20:19)
[2020-10-16 06:20] LABS: Basophils Absolute Auto 0.1 K/mm3 (0.0-0.1); Basophils Percent Auto 0.5 % (0.2-1.2); Eosinophils Percent Auto 0.3 % (0-4.4); Hematocrit 40.2 % (42.0-52.0); Immature Granulocyte Absolute 0.84 K/mm3 (0.00-0.031); Immature Granulocyte Percent A 5.6 % (0-0.5); Mean Corpuscular HGB Conc 32.3 g/dl (32-36); Mean Corpuscular Hemoglobin 29.9 pg (26-34); Mean Corpuscular Volume 92.4 fl (80-100); Mean Platelet Volume 10.1 fl (7.4-10.4); Monocytes Absolute Auto 0.8 K/mm3 (0.1-0.6); Monocytes Percent Auto 5.2 % (2.6-8.5); Neutrophils Absolute Auto 12.7 K/mm3 (1.3-6.7); Neutrophils Percent Auto 84.4 % (45.5-73.1); Nucleated Red Blood Cells Perc 0.2 % (0.0-0.2); Platelet Count Result 465 k/mm3 (150-375); Red Blood Count 4.35 M/mm3 (4.6-6.20); Red Cell Distribution Width 15.3 % (11.5-14.5); White Blood Count 15.1 K/mm3 (4.5-10.0)
[2020-10-16 06:32] LABS: Alanine Aminotransferase 22 U/L (4-50); Albumin Level 3.3 g/dL (3.5-5.1); Alkaline Phosphatase 90 U/L (38-126); Anion Gap 4 mmol/L (8-16); Aspartate Amino Transferase 75 U/L (17-59); Bilirubin,Total 1.2 mg/dL (0.2-1.3); Blood Urea Nitrogen 31 mg/dL (9-20); Calcium 8.5 mg/dL (8.4-10.2); Carbon Dioxide 33 mmol/L (22-30); Chloride 95 mmol/L (98-107); Estimated CRCL calculation 64 ml/min; Estimated Glomerular Filt Rate > 60; Glucose 139 mg/dL (75-110); Magnesium 2.8 mg/dL (1.6-2.3); Phosphorus 3.2 mg/dL (2.5-4.5); Potassium 5.3 mmol/L (3.4-5.0); Sodium 132 mmol/L (137-145)
[2020-10-16] MEDS: ENOXAPARIN 40 MG/0.4 ML SYRINGE SUB-Q ×2 (07:55→21:17)
[2020-10-16] MEDS: BENZONATATE 100 MG CAPSULE 200 MG PO ×3 (07:55→16:59)
[2020-10-16] MEDS: lisinopriL 5 MG TABLET PO (07:55)
[2020-10-16] MEDS: EZETIMIBE 10 MG TABLET PO (07:55)
[2020-10-16] MEDS: CHOLECALCIFEROL 1,000 UNITS TABLET 5000 UNITS PO (07:55)
[2020-10-16] MEDS: ASCORBIC ACID 500 MG TABLET 1000 MG PO (07:56)
[2020-10-16] MEDS: ASPIRIN 81 MG ENTERIC TABLET PO (07:56)
[2020-10-16] MEDS: FENOFIBRATE NANOCRYSTALLIZED 145 MG TABLET PO (07:56)
[2020-10-16] MEDS: ZINC SULFATE 220 MG CAPSULE PO (07:56)
[2020-10-16] MEDS: DEXAMETHASONE SOD PHOS INJ 4 MG/ML VIAL 6 MG IV PUSH (07:56)
[2020-10-16] MEDS: BUDESONIDE RESPULE NEB 0.5 MG/2 ML AMP INHALATION (08:08)
--- NOTE | 2020-10-16 11:28 | WPDINTPN ---
Progress Note: A&P Assessment and Plan (1) Acute respiratory failure with hypoxia: Code(s): J96.01 - Acute respiratory failure with hypoxia Status: Acute Assessment and Plan: Acute respiratory failure likely related to COVID-19 pneumonia and/or bacterial pneumonia -patient initially was on 8 L oxygen via nasal cannula and has had increased oxygen requirements -currently on BiPAP, 05/30, 100% FiO2 and alternating with high flow 60L/88% -chest x-ray and ABGs reviewed -continue azithromycin and ceftriaxone -continue Pulmicort nebulized -continue albuterol and Atrovent nebs -will alternate patient with high-flow therapy and BiPAP -up in chair, encourage incentive spirometry (2) Pneumonia due to COVID-19 virus: Code(s): U07.1 - COVID-19; J12.82 - Pneumonia due to coronavirus disease 2019 Status: Acute Assessment and Plan: SARS-CoV-2 PCR 09/29/2020 and had symptoms days for that -patient is out of the window for Remdesivir -patient has been started on dexamethasone, initiated on 10/13/2020 -inflammatory markers are elevated, will continue to trend (3) Hyperlipidemia: Qualifiers: Hyperlipidemia type: unspecified Qualified Code(s): E78.5 - Hyperlipidemia, unspecified Code(s): E78.5 - Hyperlipidemia, unspecified Status: Chronic Assessment and Plan: Fenofibrate and ezetimibe (4) Hypertension: Qualifiers: Hypertension type: unspecified Qualified Code(s): I10 - Essential (primary) hypertension Code(s): I10 - Essential (primary) hypertension Status: Chronic Assessment and Plan: Continue lisinopril (5) DVT prophylaxis: Code(s): Z29.9 - Encounter for prophylactic measures, unspecified Status: Acute Assessment and Plan: DVT prophylaxis: Lovenox 40 mg subcutaneously Q12H Additional Plan Discussed with patient updated with his condition and plan of care. I answered all questions, is aware that he will be alternating between high-flow therapy with Airvo and BiPAP Code status: Full code Critical care time spent: 33 minutes This dictation may have been done utilizing a voice recognition system. Attempts have been made to correct errors. However, there may be uncorrected grammatical, spelling, and recognition errors present. Due to a high probability of clinically significant, life threatening deterioration, the patient required my highest level of preparedness to intervene emergently and I personally spent this critical care time directly and personally managing the patient. This critical care time included obtaining a history; examining the patient; pulse oximetry; ordering and review of studies; arranging urgent treatment with development of a management plan; evaluation of patient's response to treatment; frequent reassessment; and discussions with other providers. It was exclusive of separately billable procedures and treating other patients and teaching time. Please see Assessment and Plan section and the rest of the note for further information on patient assessment and treatment Subjective Date/time seen: 10/16/20 11:28 Interval history: he seems to be stable although requiring high doses of oxygen and intermittent ventilatory support with BiPAP. BiPAP settings are 12/6 mmHg with 100% and his high-flow settings are 60 L/ 88%. He seems to go back and forth between nose and has been stable on this setting. He show no sign of overall weakness or muscle weakness and participates immobilization in gets out of bed to try to walk around when he can. He is tolerating clear liquid diet and he is awake and alert. Review of Systems Review of Systems: All systems reviewed & are unremarkable except as noted in HPI and below Exam Const: General: comfortable and no acute distress HENMT: Other: BiPAP mask in place Eyes: Sclera: sclerae normal Pupils: Equal, round and reactive pupils present Neck: Neck: supple Res
--- NOTE | 2020-10-16 14:11 | PM.IMPN ---
Progress Note: A&P Additional Plan # Acute hypoxic respiratory failre: due to COVID 19. in ICU on BIPAP and airvo. cta negative for PE. CXR with diffuse bilateral pneumonia. covid positive. on empiric cef and azith for bacterial pneumonia. pumicort, bronchodlators continue current treatment and plan, critically ill # Pneumonia due to covid 19 virus: droplet isolation. on decadron. # Hypertension: Monitor blood pressure. lisinopril # Hyperlipidemia: Continue fenofibrate and ezetimibe. # DVT proh; Lovenox Subjective Date/time seen: 10/16/20 14:11 Interval history: no overnight events. he is on the same amount of oxygen level as he was yesterday. he feels overall better though, no nausea, vomiting. Review of Systems Review of Systems: Narrative: - CONSTITUTIONAL: Denies weight loss, fever and chills. - HEENT: Denies changes in vision and hearing - RESPIRATORY: reports SOB and cough. - CV: Denies palpitations and CP. - GI: Denies abdominal pain, nausea, vomiting and diarrhea. - : Denies dysuria and urinary frequency. - MSK: Denies myalgia and joint pain. - SKIN: Denies rash and pruritus. - NEUROLOGICAL: Denies headache and syncope. - PSYCHIATRIC: Denies recent changes in mood. Denies anxiety and depression. All systems reviewed & are unremarkable except as noted in HPI and below Constitutional: Constitutional: Reports fatigue and Reports weakness Neurologic: Reports weakness Endocrine: Endocrine: Reports fatigue Exam Narrative: Exam Narrative: GENERAL: The patient is well developed, not in acute distress, currently on airvo HEENT: Nonicteric sclerae, PERRLA, EOMI. Oropharynx clear. Moist mucous membranes. Conjunctivae appear well perfused. CHEST: Chest wall is nontender. HEART: Regular rate and rhythm without murmur, rubs, or gallops LUNGS:decreased breath sound bilaterally. no respiratory distress ABDOMEN: Soft, positive bowel sounds, non-tender, no organomegaly. SKIN: No rash, no excessive bruising, petechiae, or purpura. NEUROLOGIC: Cranial nerves II-XII intact, alert and oriented x 3, no gross motor deficits EXTREMITIES: no edema, cyanosis or clubbing Objective Data Vital Signs Vital Signs: Vital Signs - 24 hr 10/15/20 15:29 10/15/20 16:00 10/15/20 17:38 Temperature 97 F L Pulse Rate 79 78 Respiratory Rate 32 H Blood Pressure 111/63 Pulse Oximetry 95 92 10/15/20 17:58 10/15/20 20:00 10/15/20 20:30 Temperature Pulse Rate 77 81 73 Respiratory Rate 28 H 41 H 35 H Blood Pressure 103/53 L Pulse Oximetry 92 89 L 95 10/15/20 21:15 10/15/20 22:00 10/15/20 22:09 Temperature 97.1 F L Pulse Rate 72 76 84 Respiratory Rate 36 H 31 H Blood Pressure 158/78 H Pulse Oximetry 100 90 10/15/20 22:10 10/15/20 22:11 10/15/20 22:40 Temperature Pulse Rate 88 90 Respiratory Rate 35 H 36 H Blood Pressure Pulse Oximetry 89 L 93 10/15/20 22:52 10/16/20 00:00 10/16/20 00:02 Temperature 97.1 F L Pulse Rate 90 79 78 Respiratory Rate 36 H 41 H Blood Pressure 116/61 Pulse Oximetry 93 94 10/16/20 02:00 10/16/20 02:01 10/16/20 02:15 Temperature Pulse Rate 69 72 67 Respiratory Rate 32 H 31 H Blood Pressure 109/78 Pulse Oximetry 82 L 99 10/16/20 03:12 10/16/20 03:22 10/16/20 04:00 Temperature Pulse Rate 84 87 79 Respiratory Rate 39 H 36 H Blood Pressure Pulse Oximetry 94 97 10/16/20 04:01 10/16/20 06:00 10/16/20 06:05 Temperature 96.8 F L Pulse Rate 74 96 88 Respiratory Rate 32 H 42 H Blood Pressure 118/69 138/66 Pulse Oximetry 98 90 88 L 10/16/20 06:56 10/16/20 08:00 10/16/20 08:09 Temperature 97 F L Pulse Rate 90 85 Respiratory Rate 38 H 20 Blood Pressure 120/65 Pulse Oximetry 92 96 10/16/20 08:20 10/16/20 09:41 10/16/20 12:00 Temperature 96.1 F L Pulse Rate 94 92 83 Respiratory Rate 22 H 26 H 24 H Blood Pressure 127/76 116/86 Pulse Oximetry 95 94 10/16/20 13:20 10/16/20 13:30 [place]
[2020-10-16] MEDS: BUDESONIDE RESPULE NEB 0.5 MG/2 ML AMP 1 MG INHALATION (20:19)
[2020-10-17] VITALS (45 sets, daily range): BP systolic 87–161; BP diastolic 59–94; PULSE 60–128; RESP 26–44; TEMP 35.8–36.2; O2SAT 84–99
[2020-10-17] MEDS: IPRATROPIUM BR 0.02% INH SOLN 0.5 MG/2.5 ML VIAL INHALATION ×4 (02:03→20:20)
[2020-10-17] MEDS: ALBUTEROL SULFATE NEB 2.5 MG/0.5 ML INH INHALATION ×4 (02:03→20:20)
[2020-10-17] MEDS: guaiFENesin/DEXTROMETHORPHAN 10 ML UDC 5 ML PO (02:53)
[2020-10-17 03:42] LABS: Basophils Absolute Auto 0.1 K/mm3 (0.0-0.1); Basophils Percent Auto 0.6 % (0.2-1.2); Eosinophils Percent Auto 0.1 % (0-4.4); Hematocrit 40.1 % (42.0-52.0); Immature Granulocyte Absolute 1.08 K/mm3 (0.00-0.031); Immature Granulocyte Percent A 6.9 % (0-0.5); Lymphocytes Absolute Auto 0.77 K/mm3 (0.9-3.2); Lymphocytes Percent Auto 4.9 % (18.3-44.2); Mean Corpuscular HGB Conc 32.4 g/dl (32-36); Mean Corpuscular Volume 92.6 fl (80-100); Mean Platelet Volume 10.1 fl (7.4-10.4); Monocytes Absolute Auto 0.7 K/mm3 (0.1-0.6); Monocytes Percent Auto 4.4 % (2.6-8.5); Neutrophils Percent Auto 83.1 % (45.5-73.1); Nucleated Red Blood Cells Perc 0.2 % (0.0-0.2); Platelet Count Result 542 k/mm3 (150-375); Red Blood Count 4.33 M/mm3 (4.6-6.20); Red Cell Distribution Width 15.3 % (11.5-14.5); White Blood Count 15.6 K/mm3 (4.5-10.0)
[2020-10-17 03:59] LABS: D Dimer 3.04 ug/mL (<0.48)
[2020-10-17 04:04] LABS: Alanine Aminotransferase 22 U/L (4-50); Albumin Level 3.4 g/dL (3.5-5.1); Alkaline Phosphatase 107 U/L (38-126); Anion Gap 5 mmol/L (8-16); Aspartate Amino Transferase 66 U/L (17-59); Bilirubin,Total 1.1 mg/dL (0.2-1.3); Blood Urea Nitrogen 32 mg/dL (9-20); Calcium 9.3 mg/dL (8.4-10.2); Carbon Dioxide 29 mmol/L (22-30); Chloride 99 mmol/L (98-107); Estimated CRCL calculation 77 ml/min; Estimated Glomerular Filt Rate > 60; Glucose 132 mg/dL (75-110); Magnesium 2.4 mg/dL (1.6-2.3); Phosphorus 3.7 mg/dL (2.5-4.5); Potassium 5.1 mmol/L (3.4-5.0); Sodium 133 mmol/L (137-145)
[2020-10-17 04:14] LABS: CRP 15.9 mg/dL (<1.0)
[2020-10-17 04:17] LABS: Lactate Dehydrogenase 2172 U/L (313-618)
[2020-10-17] MEDS: BUDESONIDE RESPULE NEB 0.5 MG/2 ML AMP 1 MG INHALATION ×2 (07:58→20:20)
[2020-10-17] MEDS: PROPOFOL IV EMULSION 100 ML 3.14 MG IV CONT (09:00)
[2020-10-17] MEDS: FENTANYL 2,500MCG/NS250ML(*CRX 2,500 MCG/250 ML BAG IV CONT (09:15)
--- NOTE | 2020-10-17 09:24 | PC.NURSE ---
pt found to be in respiratory distress at 0800. Md notified. pt to be intubated. Total of 5.5mg of versed, 150 of fentanyl, 100 of ketamine, and 100 of roccironium given prior to intubation. Pt to be sedated with propofol and fentanyl. 8 et tube placed 23 at the teeth.
[2020-10-17] MEDS: ENOXAPARIN 40 MG/0.4 ML SYRINGE SUB-Q ×2 (10:15→21:01)
[2020-10-17] MEDS: DEXAMETHASONE SOD PHOS INJ 4 MG/ML VIAL 6 MG IV PUSH (10:15)
[2020-10-17 10:24] LABS: Alveolar/Arterial O2 Gradient 592.1 mmHg; Base Excess ABG -0.2 mEq/l (+/-2.0); Carboxyhemoglobin 0.5 % THb (0-2.0); Fractional Inspired Oxygen 100 %; HCO3 ABG 25.7 mEq/l (22.0-26.0); Methemoglobin ABG 0.2 %THb (0-1.5); Oxygen Content ABG 18.4 %vol (16.0-22.0); Oxygen Saturation ABG 94.2 % (95.0-100.0); Oxyhemoglobin 92.5 % THb (90.0-100.0); PO2 ABG 73.9 mmHg (80.0-100.0); PO2 FiO2 Ratio Arterial Blood 0.74 %; Reduced Hemoglobin 6.8 %THb (0-5.0); Site Drawn RIGHT BRACHIAL; Total Hemoglobin 14.1 g/dL (12.0-18.0); pH ABG 7.356 (7.350-7.450)
[2020-10-17 10:25] LABS: Arterial Blood Gas PEEP 12 cmH2O; Arterial Blood Gas Tidal Volume 400 ml; Arterial Blood Gas Vent Mode ASSIST CONTROL; Arterial Blood Gas Ventilator rate 30 /MIN; Device VENTILATOR
[2020-10-17] MEDS: CISATRACURIUM BESYLATE 200 MG in DEXTROSE 5% 80 ML 9.43 ML IV CONT (11:05)
--- NOTE | 2020-10-17 11:26 | WPDPROCEDUR ---
Procedures Intubation Intubation Date: 10/17/20 Intubation Time: 09:00 A pre-procedural Time-Out was completed immediately before starting the procedure and confirmed: Patient Identification, Site, Procedure, Patient Position and the Availability of Requisite Equipment: Yes Sedative: ketamine Mg given: 100 Paralytic: rocuronium Mg given: 100 Laryngoscope: fiber optic video scope ET tube size: 8 Tube secured depth (cm): 23 Tube secured location: teeth Tube placement confirmation: visualized tube passing through cords, equal breath sounds bilaterally and confirmation by capnometry Patient tolerated procedure: well Intubation complications: none Additional comments: Versed 4.5 mg, Fentanyl 150 mcg, Ketamine 100 mg and Rocuronium 100 mg used for RSI
--- NOTE | 2020-10-17 11:28 | WPDPROCEDUR ---
Procedures Central Line Placement Right SC: Central Line Date: 10/17/20 Central Line Time: 09:30 Discussed w/ the patient/family/POA,the placement of a central venous catheter, including its clinical necessity/indication & associated potential risks, benifits and alternatives.: Yes The patient/family/POA understand(s) and acknowledge(s) the need to proceed with central venous catheter insertion as an important element of the patient's clinical management.: Yes Time Out Performed: Yes Patient Position: supine Patient placed on monitor/pulse ox: Yes Provider Prep: mask, sterile gown, sterile gloves, Max. sterile barrier precautions, cap and hand hygiene with conventional soap/water or alcohol based hand rub Central line prep: 2% Chlorhexidine scrub Local anesthesia used: lidocaine 1% Amount of anesthesia used (ml): 5 Sterile US Technique with sterile gel/sterile probe covers: Yes Central line lumen inserted: triple Length (cm): 16 Depth of Insertion (cm): 15 Post Procedure: sutured in place, good blood return, all ports aspirated, flushed, capped, transparent dressing, antimicrobial product and aseptic technique maintained throughout procedure Post procedure x-ray: tip of catheter in good position Patient tolerated procedure: well Complications: none Additional comments: The central line was originally malposition and it was later reguided into correct position with second CXR confirming good placement
--- NOTE | 2020-10-17 11:31 | WPDINTPN ---
Progress Note: A&P Assessment and Plan (1) Acute respiratory failure with hypoxia: Code(s): J96.01 - Acute respiratory failure with hypoxia Status: Acute Assessment and Plan: Acute respiratory failure likely related to COVID-19 pneumonia and/or bacterial pneumonia. He was intubated this morning and placed on mechanical ventilation - will institute low tidal volume with gold targets of 6 mL/kg and plateau pressures of below 30 cm - we will start propofol and fentanyl drips per protocol with Nimbex paralytic We will attempt prone positioning for 16 hours a day as tolerated overall prognosis is very poor and survival is much below 50% at this stage. Discussed with patient and his Beth updated with his condition and plan of care. Beth also requested that I speak to her friend Renae. I called Renae and she requested that I start the patient on hydroxychloroquine. I explained to Renae and Beth that hydroxychloroquine has been proven not to be effective in COVID-19 and may be harmful and cause life-threatening cardiac arrhythmias. Code status: Full code Critical care time spent: 34 minutes This dictation may have been done utilizing a voice recognition system. Attempts have been made to correct errors. However, there may be uncorrected grammatical, spelling, and recognition errors present. Due to a high probability of clinically significant, life threatening deterioration, the patient required my highest level of preparedness to intervene emergently and I personally spent this critical care time directly and personally managing the patient. This critical care time included obtaining a history; examining the patient; pulse oximetry; ordering and review of studies; arranging urgent treatment with development of a management plan; evaluation of patient's response to treatment; frequent reassessment; and discussions with other providers. It was exclusive of separately billable procedures and treating other patients and teaching time. Please see Assessment and Plan section and the rest of the note for further information on patient assessment and treatment (2) Pneumonia due to COVID-19 virus: Code(s): U07.1 - COVID-19; J12.82 - Pneumonia due to coronavirus disease 2019 Status: Acute Assessment and Plan: SARS-CoV-2 PCR 09/29/2020 and had symptoms days for that -patient is out of the window for Remdesivir -patient has been started on dexamethasone, initiated on 10/13/2020 -inflammatory markers are elevated, will continue to trend (3) Hyperlipidemia: Qualifiers: Hyperlipidemia type: unspecified Qualified Code(s): E78.5 - Hyperlipidemia, unspecified Code(s): E78.5 - Hyperlipidemia, unspecified Status: Chronic Assessment and Plan: Fenofibrate and ezetimibe (4) Hypertension: Qualifiers: Hypertension type: unspecified Qualified Code(s): I10 - Essential (primary) hypertension Code(s): I10 - Essential (primary) hypertension Status: Chronic Assessment and Plan: Continue lisinopril (5) DVT prophylaxis: Code(s): Z29.9 - Encounter for prophylactic measures, unspecified Status: Acute Assessment and Plan: DVT prophylaxis: Lovenox 40 mg subcutaneously Q12H Subjective Date/time seen: 10/17/20 11:31 Interval history: The patient became very tachypneic this morning and started dropping his O2 saturations despite being on BiPAP. He felt like he was getting tired and fatigued. He then agreed along with his Beth to be intubated and mechanically ventilated. He was intubated this morning with a size 8 ET tube without complications. After intubation a right subclavian central line was placed and the patient will be sedated, paralyzed and later will start prone and for up to 16 hours a day as tolerated. Review of Systems Review of Systems: All systems reviewed & are unremarkable except as noted i
[2020-10-17] MEDS: PROPOFOL IV EMULSION 100 ML 12.58 MG IV CONT ×2 (12:56→21:01)
--- NOTE | 2020-10-17 13:12 | PM.IMPN ---
Progress Note: A&P Additional Plan # Acute hypoxic respiratory failre: due to COVID 19. in ICU on BIPAP and airvo. cta negative for PE. CXR with diffuse bilateral pneumonia. covid positive. on empiric cef and azith for bacterial pneumonia. pumicort, bronchodlators continue current treatment and plan, critically ill intubated this am for respiratory failure. mgmt per critical team. # Pneumonia due to covid 19 virus: droplet isolation. on decadron. not a candidate for remdesivir # Hypertension: Monitor blood pressure. lisinopril # Hyperlipidemia: Continue fenofibrate and ezetimibe. # DVT proh; Lovenox Subjective Date/time seen: 10/17/20 13:12 Interval history: events noted. currently intubated and sedated. on prone positioning. ros could not be completed due to clinical condition Review of Systems Review of Systems: ROS unobtainable: Yes unobtainable due to endotracheal tube, unobtainable due to medical condition and unobtainable due to mental status Exam Narrative: Exam Narrative: GENERAL: The patient is intubated and sedated, prone positioned HEENT: normocephalic, atrumatic HEART: Regular rate and rhythm without murmur, rubs, or gallops LUNGS: decreased breath sound bilaterally. no respiratory distress, equal airentry bilaterally ABDOMEN: Soft, no guarding SKIN: No rash, no excessive bruising, petechiae, or purpura. NEUROLOGIC: sedated EXTREMITIES: no edema, cyanosis or clubbing Objective Data Vital Signs Vital Signs: Vital Signs - 24 hr 10/16/20 13:20 10/16/20 13:30 10/16/20 14:00 Temperature Pulse Rate 92 95 88 Respiratory Rate 22 H 22 H 28 H Blood Pressure 140/80 Pulse Oximetry 96 10/16/20 16:00 10/16/20 18:00 10/16/20 20:00 Temperature 96.4 F L 96.5 F L Pulse Rate 79 94 83 Respiratory Rate 34 H 40 H 31 H Blood Pressure 118/63 129/62 133/78 Pulse Oximetry 90 93 92 10/16/20 20:20 10/16/20 20:35 10/16/20 20:45 Temperature Pulse Rate 83 83 68 Respiratory Rate 22 H 30 H 33 H Blood Pressure Pulse Oximetry 92 94 10/16/20 22:00 10/16/20 22:36 10/17/20 00:00 Temperature Pulse Rate 84 82 68 Respiratory Rate 31 H Blood Pressure 131/82 Pulse Oximetry 96 10/17/20 00:02 10/17/20 02:00 10/17/20 02:02 Temperature 96.5 F L Pulse Rate 75 70 61 Respiratory Rate 34 H 27 H Blood Pressure 125/75 134/80 Pulse Oximetry 96 96 10/17/20 02:04 10/17/20 02:19 10/17/20 02:20 Temperature Pulse Rate 80 66 63 Respiratory Rate 30 H 29 H 26 H Blood Pressure Pulse Oximetry 97 10/17/20 04:00 10/17/20 04:02 10/17/20 06:00 Temperature 96.5 F L Pulse Rate 77 82 92 Respiratory Rate 30 H 37 H Blood Pressure 118/64 141/59 H Pulse Oximetry 94 85 L 10/17/20 06:07 10/17/20 06:15 10/17/20 07:55 Temperature Pulse Rate 81 76 81 Respiratory Rate 38 H 34 H 39 H Blood Pressure Pulse Oximetry 93 94 95 10/17/20 08:00 10/17/20 08:05 10/17/20 08:15 Temperature Pulse Rate 79 80 128 H Respiratory Rate 34 H 39 H 44 H Blood Pressure 130/80 Pulse Oximetry 90 84 L 10/17/20 08:30 10/17/20 08:45 10/17/20 09:15 Temperature 97.2 F L Pulse Rate 111 H 117 H Respiratory Rate 30 H 30 H Blood Pressure 126/91 H 161/94 H Pulse Oximetry 95 95 10/17/20 09:30 10/17/20 09:40 10/17/20 09:45 Temperature Pulse Rate 128 H 117 H 110 H Respiratory Rate 34 H 30 H 32 H Blood Pressure 128/76 Pulse Oximetry 96 10/17/20 09:46 10/17/20 10:00 10/17/20 10:27 Temperature Pulse Rate 123 H 115 H 113 H Respiratory Rate 30 H Blood Pressure 141/90 H Pulse Oximetry 96 96 96 10/17/20 10:30 10/17/20 11:05 10/17/20 12:00 Temperature Pulse Rate 100 96 85 Respiratory Rate 30 H 30 H 30 H Blood Pressure 119/83 87/61 L Pulse Oximetry 99 Intake/Output Intake/Output: Intake & Output 10/14/20 10/15/20 10/16/20 10/17/20 23:59 23:59 23:59 23:59 Intake Total 1210 1880 1320 200 Output Total 2049 1056 6243 4461 Balance -[phone] -[phone] -[phone]
[2020-10-17] MEDS: CENTRAL LINE FLUSH 10 ML IV PUSH ×3 (16:52→21:01)
[2020-10-17] MEDS: CISATRACURIUM BESYLATE 200 MG in DEXTROSE 5% 80 ML 7.86 ML IV CONT (20:52)
[2020-10-18] VITALS (38 sets, daily range): BP systolic 78–150; BP diastolic 54–85; PULSE 64–126; RESP 30; TEMP 36.4–37.1; O2SAT 94–99; BMI 39.6
[2020-10-18 00:36] LABS: Glucose Point of Care 133 (65-105)
[2020-10-18] MEDS: ALBUTEROL SULFATE NEB 2.5 MG/0.5 ML INH INHALATION ×4 (01:40→19:04)
[2020-10-18] MEDS: IPRATROPIUM BR 0.02% INH SOLN 0.5 MG/2.5 ML VIAL INHALATION ×4 (01:40→19:04)
[2020-10-18] MEDS: FENTANYL 2,500MCG/NS250ML(*CRX 2,500 MCG/250 ML BAG 12.5 MCG IV CONT (04:07)
[2020-10-18] MEDS: PROPOFOL IV EMULSION 100 ML 15.72 MG IV CONT ×3 (04:11→20:22)
[2020-10-18 04:12] LABS: Alveolar/Arterial O2 Gradient 365.7 mmHg; Carboxyhemoglobin 0.4 % THb (0-2.0); Fractional Inspired Oxygen 90 %; HCO3 ABG 27.7 mEq/l (22.0-26.0); Methemoglobin ABG 0.3 %THb (0-1.5); Oxygen Saturation ABG 99.5 % (95.0-100.0); Oxyhemoglobin 97.5 % THb (90.0-100.0); PCO2 ABG 47.4 mmHg (35.0-45.0); PO2 ABG 227.4 mmHg (80.0-100.0); PO2 FiO2 Ratio Arterial Blood 2.53 %; Reduced Hemoglobin 1.8 %THb (0-5.0); Total Hemoglobin 13.4 g/dL (12.0-18.0); pH ABG 7.385 (7.350-7.450)
[2020-10-18 04:13] LABS: Arterial Blood Gas PEEP 12 cmH2O; Arterial Blood Gas Tidal Volume 400 ml; Arterial Blood Gas Vent Mode CMV; Arterial Blood Gas Ventilator rate 30 /MIN; Device VENTILATOR; Modified Allen's Test Pass; Site Drawn LEFT RADIAL
[2020-10-18 04:42] LABS: Basophils Absolute Auto 0.1 K/mm3 (0.0-0.1); Basophils Percent Auto 0.9 % (0.2-1.2); Eosinophils Percent Auto 0.1 % (0-4.4); Hematocrit 40.9 % (42.0-52.0); Hemoglobin 12.9 g/dL (14.0-18.0); Immature Granulocyte Absolute 1.36 K/mm3 (0.00-0.031); Immature Granulocyte Percent A 9.1 % (0-0.5); Lymphocytes Absolute Auto 1.29 K/mm3 (0.9-3.2); Lymphocytes Percent Auto 8.6 % (18.3-44.2); Mean Corpuscular HGB Conc 31.5 g/dl (32-36); Mean Corpuscular Hemoglobin 29.9 pg (26-34); Mean Corpuscular Volume 94.9 fl (80-100); Mean Platelet Volume 9.9 fl (7.4-10.4); Monocytes Absolute Auto 0.8 K/mm3 (0.1-0.6); Monocytes Percent Auto 5.1 % (2.6-8.5); Neutrophils Absolute Auto 11.5 K/mm3 (1.3-6.7); Neutrophils Percent Auto 76.2 % (45.5-73.1); Nucleated Red Blood Cells Perc 0.1 % (0.0-0.2); Platelet Count Result 571 k/mm3 (150-375); Red Blood Count 4.31 M/mm3 (4.6-6.20); Red Cell Distribution Width 15.7 % (11.5-14.5)
[2020-10-18 04:54] LABS: Alanine Aminotransferase 18 U/L (4-50); Albumin Level 3.3 g/dL (3.5-5.1); Alkaline Phosphatase 99 U/L (38-126); Anion Gap 4 mmol/L (8-16); Aspartate Amino Transferase 38 U/L (17-59); Bilirubin,Total 0.8 mg/dL (0.2-1.3); Blood Urea Nitrogen 38 mg/dL (9-20); Calcium 8.6 mg/dL (8.4-10.2); Carbon Dioxide 30 mmol/L (22-30); Chloride 99 mmol/L (98-107); Estimated CRCL calculation 65 ml/min; Estimated Glomerular Filt Rate > 60; Glucose 136 mg/dL (75-110); Magnesium 2.7 mg/dL (1.6-2.3); Phosphorus 4.7 mg/dL (2.5-4.5); Potassium 5.3 mmol/L (3.4-5.0); Sodium 133 mmol/L (137-145)
[2020-10-18] MEDS: CENTRAL LINE FLUSH 10 ML IV PUSH ×4 (06:45→20:27)
[2020-10-18] MEDS: BUDESONIDE RESPULE NEB 0.5 MG/2 ML AMP 1 MG INHALATION ×2 (08:12→19:04)
[2020-10-18] MEDS: SODIUM CHLORIDE 0.9% IV 1,000 ML 999 ML IV CONT (08:38)
[2020-10-18] MEDS: EZETIMIBE 10 MG TABLET PO (08:42)
[2020-10-18] MEDS: ASCORBIC ACID 500 MG TABLET 1000 MG PO (08:42)
[2020-10-18] MEDS: CHOLECALCIFEROL 1,000 UNITS TABLET 5000 UNITS PO (08:42)
[2020-10-18] MEDS: ENOXAPARIN 40 MG/0.4 ML SYRINGE SUB-Q ×2 (08:42→20:26)
[2020-10-18] MEDS: FENOFIBRATE NANOCRYSTALLIZED 145 MG TABLET PO (08:43)
[2020-10-18] MEDS: ZINC SULFATE 220 MG CAPSULE PO (08:43)
[2020-10-18] MEDS: DEXAMETHASONE SOD PHOS INJ 4 MG/ML VIAL 6 MG IV PUSH (08:43)
[2020-10-18] MEDS: ASPIRIN 81 MG ENTERIC TABLET PO (08:44)
[2020-10-18] MEDS: PROPOFOL IV EMULSION 100 ML 18.86 MG IV CONT (09:40)
[2020-10-18] MEDS: CISATRACURIUM BESYLATE 200 MG in DEXTROSE 5% 80 ML 6.29 ML IV CONT (09:43)
--- NOTE | 2020-10-18 12:23 | WPDINTPN ---
Progress Note: A&P Assessment and Plan (1) Acute respiratory failure with hypoxia: Code(s): J96.01 - Acute respiratory failure with hypoxia Status: Acute Assessment and Plan: Acute respiratory failure likely related to COVID-19 pneumonia and/or bacterial pneumonia. Intubated on 10/17/2020 -ARDS physiology, patient on low tidal volume strategy, 6 mL/kg of tidal volume, will maintain plateau pressures <30 -continue Pulmicort -continue bronchodilators -prone patient's for 14-16 hours daily -overall prognosis is poor given significant ARDS from COVID-19 pneumonia (2) Pneumonia due to COVID-19 virus: Code(s): U07.1 - COVID-19; J12.82 - Pneumonia due to coronavirus disease 2018 Status: Acute Assessment and Plan: SARS-CoV-2 PCR 09/29/2020 and had symptoms days for that -patient is out of the window for Remdesivir -patient has been started on dexamethasone, initiated on 10/13/2020 -inflammatory markers are elevated, will continue to trend (3) Hyperlipidemia: Qualifiers: Hyperlipidemia type: unspecified Qualified Code(s): E78.5 - Hyperlipidemia, unspecified Code(s): E78.5 - Hyperlipidemia, unspecified Status: Chronic Assessment and Plan: Continue Fenofibrate and ezetimibe (4) Hypertension: Qualifiers: Hypertension type: unspecified Qualified Code(s): I10 - Essential (primary) hypertension Code(s): I10 - Essential (primary) hypertension Status: Chronic Assessment and Plan: Patient hypotensive, will hold lisinopril (5) DVT prophylaxis: Code(s): Z29.9 - Encounter for prophylactic measures, unspecified Status: Acute Assessment and Plan: DVT prophylaxis: Lovenox 40 mg subcutaneously Q12H Additional Plan 10/17: Dr. Lesley Ruiz discussed with patient's Beth updated with his condition and plan of care. Beth also requested that I speak to her friend Renae. I called Renae and she requested that I start the patient on hydroxychloroquine. He explained to Renae and Beth that hydroxychloroquine has been proven not to be effective in COVID-19 and may be harmful and cause life-threatening cardiac arrhythmias. Code status: Full code Critical care time spent: 34 minutes This dictation may have been done utilizing a voice recognition system. Attempts have been made to correct errors. However, there may be uncorrected grammatical, spelling, and recognition errors present. Due to a high probability of clinically significant, life threatening deterioration, the patient required my highest level of preparedness to intervene emergently and I personally spent this critical care time directly and personally managing the patient. This critical care time included obtaining a history; examining the patient; pulse oximetry; ordering and review of studies; arranging urgent treatment with development of a management plan; evaluation of patient's response to treatment; frequent reassessment; and discussions with other providers. It was exclusive of separately billable procedures and treating other patients and teaching time. Please see Assessment and Plan section and the rest of the note for further information on patient assessment and treatment Subjective Date/time seen: 10/18/20 12:23 Interval history: Reason for consult: Respiratory failure, COVID-19 pneumonia -intubated on 10/17/2020 10/18/2020: Patient seen and examined this morning, remains on CMV mode of ventilation, peep of 12, 90% FiO2. ABG showed significant improvement in his oxygen levels. Patient is sedated with fentanyl, propofol, Nimbex for chemical analysis. Low urine output, no fevers. Blood pressures have been on the lower end of normal. Review of Systems Review of Systems: ROS unobtainable: Yes unobtainable due to endotracheal tube, unobtainable due to medical condition and unobtainable due to mental status Exam Const: General:
[2020-10-18] MEDS: PANTOPRAZOLE SODIUM IV 40 MG VIAL IV PUSH (12:33)
--- NOTE | 2020-10-18 12:37 | PC.NURSE ---
Sedation reduced due to hypotension.
[2020-10-18 12:43] LABS: Glucose Point of Care 163 (65-105)
--- NOTE | 2020-10-18 14:36 | PM.IMPN ---
Progress Note: A&P Additional Plan # Acute hypoxic respiratory failre: due to COVID 19. in ICU on BIPAP and airvo. cta negative for PE. CXR with diffuse bilateral pneumonia. covid positive. on empiric cef and azith for bacterial pneumonia. pumicort, bronchodlators continue current treatment and plan, critically ill intubated 10/17 for respiratory failure. mgmt per critical team. # Pneumonia due to covid 19 virus: droplet isolation. on decadron. not a candidate for remdesivir # Hypertension: Monitor blood pressure. lisinopril # Hyperlipidemia: Continue fenofibrate and ezetimibe. # DVT proh; Lovenox Subjective Date/time seen: 10/18/20 14:36 Interval history: no overnight events, bp lowish. intubated on mechanical ventilation full support. sedated. Review of Systems Review of Systems: ROS unobtainable: Yes unobtainable due to endotracheal tube, unobtainable due to medical condition and unobtainable due to mental status Exam Narrative: Exam Narrative: GENERAL: The patient is intubated and sedated, prone positioned HEENT: normocephalic, atrumatic HEART: Regular rate and rhythm without murmur, rubs, or gallops LUNGS: decreased breath sound bilaterally. no respiratory distress, equal airentry bilaterally ABDOMEN: Soft, no guarding SKIN: No rash, no excessive bruising, petechiae, or purpura. NEUROLOGIC: sedated EXTREMITIES: no edema, cyanosis or clubbing Objective Data Vital Signs Vital Signs: Vital Signs - 24 hr 10/17/20 15:14 10/17/20 16:00 10/17/20 16:44 Temperature 96.4 F L Pulse Rate 65 66 Respiratory Rate 30 H Blood Pressure 106/68 Pulse Oximetry 96 98 98 10/17/20 18:00 10/17/20 18:31 10/17/20 20:00 Temperature Pulse Rate 61 62 60 Respiratory Rate 30 H 30 H Blood Pressure 112/66 Pulse Oximetry 98 10/17/20 20:01 10/17/20 20:30 10/17/20 20:52 Temperature 96.5 F L Pulse Rate 60 60 66 Respiratory Rate 30 H 30 H 30 H Blood Pressure 106/69 Pulse Oximetry 98 98 10/17/20 20:59 10/17/20 21:01 10/17/20 22:00 Temperature Pulse Rate 63 67 65 Respiratory Rate 30 H 30 H 30 H Blood Pressure Pulse Oximetry 10/17/20 22:01 10/17/20 22:46 10/18/20 00:00 Temperature 97.5 F L Pulse Rate 66 64 64 Respiratory Rate 30 H 30 H Blood Pressure 104/64 107/61 Pulse Oximetry 98 98 98 10/18/20 01:50 10/18/20 02:00 10/18/20 04:00 Temperature Pulse Rate 97 84 105 H Respiratory Rate 30 H 30 H Blood Pressure 115/70 Pulse Oximetry 98 99 10/18/20 04:07 10/18/20 04:21 10/18/20 04:56 Temperature 97.6 F Pulse Rate 110 H 120 H 126 H Respiratory Rate 30 H 30 H 30 H Blood Pressure 138/85 Pulse Oximetry 99 10/18/20 05:00 10/18/20 06:00 10/18/20 06:01 Temperature Pulse Rate 82 99 102 H Respiratory Rate 30 H Blood Pressure 89/63 L Pulse Oximetry 98 96 10/18/20 08:00 10/18/20 08:14 10/18/20 08:15 Temperature 97.9 F Pulse Rate 84 83 83 Respiratory Rate 30 H 30 H Blood Pressure 78/54 L Pulse Oximetry 97 97 10/18/20 09:10 10/18/20 09:40 10/18/20 09:43 Temperature Pulse Rate 86 105 H 103 H Respiratory Rate 30 H 30 H 30 H Blood Pressure 123/61 Pulse Oximetry 10/18/20 10:00 10/18/20 10:57 10/18/20 11:01 Temperature Pulse Rate 96 86 86 Respiratory Rate 30 H 30 H Blood Pressure 96/54 L Pulse Oximetry 97 96 98 10/18/20 12:00 10/18/20 12:20 10/18/20 12:30 Temperature 98.7 F Pulse Rate 76 77 85 Respiratory Rate 30 H 30 H 30 H Blood Pressure 81/56 L Pulse Oximetry 97 96 10/18/20 12:35 10/18/20 13:48 10/18/20 13:51 Temperature Pulse Rate 76 83 85 Respiratory Rate 30 H 30 H Blood Pressure 81/56 L Pulse Oximetry 96 Intake/Output Intake/Output: Intake & Output 10/15/20 10/16/20 10/17/20 10/18/20 23:59 23:59 23:59 23:59 Intake Total 4080 2265 233 4465 Output Total 3589 9938 3210 600 Balance [phone] -[phone] -9960 847 Meds/Results Medications: Active Medications Generic Name Dose Route Start
[2020-10-19] VITALS (40 sets, daily range): BP systolic 91–147; BP diastolic 59–84; PULSE 68–107; RESP 26–30; TEMP 35.8–37.2; O2SAT 60–100
[2020-10-19] MEDS: CISATRACURIUM BESYLATE 200 MG in DEXTROSE 5% 80 ML 6.29 ML IV CONT (00:55)
[2020-10-19] MEDS: IPRATROPIUM BR 0.02% INH SOLN 0.5 MG/2.5 ML VIAL INHALATION ×4 (01:18→20:42)
[2020-10-19] MEDS: ALBUTEROL SULFATE NEB 2.5 MG/0.5 ML INH INHALATION ×4 (01:18→20:43)
[2020-10-19] MEDS: PROPOFOL IV EMULSION 100 ML 15.72 MG IV CONT ×3 (02:09→14:28)
[2020-10-19 04:35] LABS: Alveolar/Arterial O2 Gradient 358.3 mmHg; Base Excess ABG 5.2 mEq/l (+/-2.0); Device VENTILATOR; Fractional Inspired Oxygen 70 %; HCO3 ABG 28.6 mEq/l (22.0-26.0); Modified Allen's Test Pass; PO2 FiO2 Ratio Arterial Blood 1.43 %; Site Drawn RIGHT RADIAL; pH ABG 7.495 (7.350-7.450)
[2020-10-19 04:36] LABS: Arterial Blood Gas PEEP 10 cmH2O; Arterial Blood Gas Tidal Volume 400 ml; Arterial Blood Gas Vent Mode CMV; Arterial Blood Gas Ventilator rate 30 /MIN
[2020-10-19] MEDS: CENTRAL LINE FLUSH 10 ML IV PUSH ×4 (04:54→19:55)
[2020-10-19 05:19] LABS: Hematocrit 37.9 % (42.0-52.0); Mean Corpuscular HGB Conc 31.7 g/dl (32-36); Mean Corpuscular Hemoglobin 29.7 pg (26-34); Mean Corpuscular Volume 93.8 fl (80-100); Mean Platelet Volume 9.8 fl (7.4-10.4); Platelet Count Result 597 k/mm3 (150-375); Red Blood Count 4.04 M/mm3 (4.6-6.20); Red Cell Distribution Width 15.5 % (11.5-14.5); White Blood Count 13.4 K/mm3 (4.5-10.0)
[2020-10-19 05:32] LABS: Alanine Aminotransferase 17 U/L (4-50); Alkaline Phosphatase 81 U/L (38-126); Anion Gap 1 mmol/L (8-16); Aspartate Amino Transferase 56 U/L (17-59); Bilirubin,Total 0.7 mg/dL (0.2-1.3); Blood Urea Nitrogen 42 mg/dL (9-20); CRP 6.6 mg/dL (<1.0); Calcium 8.7 mg/dL (8.4-10.2); Carbon Dioxide 31 mmol/L (22-30); Chloride 101 mmol/L (98-107); Estimated CRCL calculation 71 ml/min; Estimated Glomerular Filt Rate > 60; Glucose 139 mg/dL (75-110); Lactate Dehydrogenase 1122 U/L (313-618); Magnesium 2.6 mg/dL (1.6-2.3); Phosphorus 3.1 mg/dL (2.5-4.5); Potassium 4.7 mmol/L (3.4-5.0); Sodium 133 mmol/L (137-145)
[2020-10-19 05:50] LABS: D Dimer 2.85 ug/mL (<0.48)
[2020-10-19 06:19] LABS: Lymphocytes Absolute Manual 1.47 K/mm3 (1.1-4.5); Platelet Estimate Increased (Adequate); Total Cells Counted 100
[2020-10-19 07:00] LABS: Band Neutrophils Percent 3 % (0-6); Eosinophils Absolute Manual 0.13 K/mm3 (0.02-0.5); Eosinophils Percent Manual 1 % (0-4); Monocytes Absolute Manual 0.26 K/mm3 (0.1-0.90); Monocytes Percent Manual 2 % (3-9); Neutrophils Absolute Manual 11.52 K/mm3 (1.3-6.7); Neutrophils Percent Manual 83 % (46-73)
[2020-10-19 07:01] LABS: Stomatocytes 1+ (NORMAL)
[2020-10-19] MEDS: BUDESONIDE RESPULE NEB 0.5 MG/2 ML AMP 1 MG INHALATION ×2 (08:07→20:43)
--- NOTE | 2020-10-19 08:08 | WPDINTPN ---
Progress Note: A&P Assessment and Plan (1) Acute respiratory failure with hypoxia: Code(s): J96.01 - Acute respiratory failure with hypoxia Status: Acute Assessment and Plan: Acute respiratory failure likely related to COVID-19 pneumonia and/or bacterial pneumonia. Intubated on 10/17/2020 -ARDS physiology, patient on low tidal volume strategy, 6 mL/kg of tidal volume, will maintain plateau pressures <30 -peep of 10 and 60% FiO2 -patient is being placed in prone position for up to 16 hours daily -continue Pulmicort -continue bronchodilators -continue fentanyl, propofol for sedation -Nimbex for chemical paralysis (2) Pneumonia due to COVID-19 virus: Code(s): U07.1 - COVID-19; J12.82 - Pneumonia due to coronavirus disease 2019 Status: Acute Assessment and Plan: SARS-CoV-2 PCR 09/29/2020 and had symptoms days for that -patient was not a candidate for Remdesivir as he was out of the window period. -continue dexamethasone, initiated on 10/13/2020 -inflammatory markers trending down, will continue to trend (3) Hyperlipidemia: Qualifiers: Hyperlipidemia type: unspecified Qualified Code(s): E78.5 - Hyperlipidemia, unspecified Code(s): E78.5 - Hyperlipidemia, unspecified Status: Chronic Assessment and Plan: Continue Fenofibrate and ezetimibe (4) Hypertension: Qualifiers: Hypertension type: unspecified Qualified Code(s): I10 - Essential (primary) hypertension Code(s): I10 - Essential (primary) hypertension Status: Chronic Assessment and Plan: Patient hypotensive, will hold lisinopril (5) DVT prophylaxis: Code(s): Z29.9 - Encounter for prophylactic measures, unspecified Status: Acute Assessment and Plan: DVT prophylaxis: Lovenox 40 mg subcutaneously Q12H Additional Plan Discussed with patient's Beth and updated her with patient's condition and plan of care. I answered all questions 10/17: Dr. Lesley Ruiz discussed with patient's Beth updated with his condition and plan of care. Beth also requested that I speak to her friend Renae. I called Renae and she requested that I start the patient on hydroxychloroquine. He explained to Renae and Beth that hydroxychloroquine has been proven not to be effective in COVID-19 and may be harmful and cause life-threatening cardiac arrhythmias. Code status: Full code Critical care time spent: 33 minutes This dictation may have been done utilizing a voice recognition system. Attempts have been made to correct errors. However, there may be uncorrected grammatical, spelling, and recognition errors present. Due to a high probability of clinically significant, life threatening deterioration, the patient required my highest level of preparedness to intervene emergently and I personally spent this critical care time directly and personally managing the patient. This critical care time included obtaining a history; examining the patient; pulse oximetry; ordering and review of studies; arranging urgent treatment with development of a management plan; evaluation of patient's response to treatment; frequent reassessment; and discussions with other providers. It was exclusive of separately billable procedures and treating other patients and teaching time. Please see Assessment and Plan section and the rest of the note for further information on patient assessment and treatment Subjective Date/time seen: 10/19/20 08:08 Interval history: Reason for consult: Respiratory failure, COVID-19 pneumonia -intubated on 10/17/2020 10/19/2020: Patient seen and examined, remains on CMV mode of ventilation, peep of 10 and 60% FiO2. Patient currently in prone position and tolerating with adequate O2 sats. ABGs also shows adequate ventilation and oxygenation. Urine output has been adequate. Patient is on propofol, fentanyl, Nimbex infusion. Patient is hemod
[2020-10-19] MEDS: PANTOPRAZOLE SODIUM IV 40 MG VIAL IV PUSH (08:27)
[2020-10-19] MEDS: FENOFIBRATE NANOCRYSTALLIZED 145 MG TABLET PO (08:27)
[2020-10-19] MEDS: DEXAMETHASONE SOD PHOS INJ 4 MG/ML VIAL 6 MG IV PUSH (08:27)
[2020-10-19] MEDS: EZETIMIBE 10 MG TABLET PO (08:27)
[2020-10-19] MEDS: ASPIRIN 81 MG ENTERIC TABLET PO (08:28)
[2020-10-19] MEDS: CHOLECALCIFEROL 1,000 UNITS TABLET 5000 UNITS PO (08:28)
[2020-10-19] MEDS: ENOXAPARIN 40 MG/0.4 ML SYRINGE SUB-Q ×2 (08:29→19:54)
[2020-10-19] MEDS: ASCORBIC ACID 500 MG TABLET 1000 MG PO (08:30)
[2020-10-19] MEDS: ZINC SULFATE 220 MG CAPSULE PO (08:31)
--- NOTE | 2020-10-19 08:36 | PM.IMPN ---
Progress Note: A&P Assessment and Plan (1) Acute respiratory failure with hypoxia: Code(s): J96.01 - Acute respiratory failure with hypoxia Status: Acute Assessment and Plan: The patient has been admitted to the ICU for respiratory failure. Initially on HFNC then BiPAP but ultimately required intubation 10/17. Currently intubated, sedated and paralyzes. FiO2 requirement better today. Wean vent as tolerated. Continue bronchodilators and treatment of Covid pneumonia with Decadron; he is too far out for Remdesivir or plasma. Appreciate Support Services Manager input, (2) Pneumonia due to COVID-19 virus: Code(s): U07.1 - COVID-19; J12.82 - Pneumonia due to coronavirus disease 2019 Status: Acute Assessment and Plan: CTA on admission (10/13) showed no pulmonary emboli but did show extensive patchy groundglass infiltrates scattered throughout both lungs. Patient tested positive for COVID on 09/29/20. No cultures ordered. Current respiraotry care as mentioned above. Will continue droplet isolation. Continue Decadron IV. Continue bronchodilators. Not on antibiotics (abx stopped 10/16). Continue supportive care. (3) Hypertension: Qualifiers: Hypertension type: unspecified Qualified Code(s): I10 - Essential (primary) hypertension Code(s): I10 - Essential (primary) hypertension Status: Chronic Assessment and Plan: Patient's blood pressure was reviewed on 10/19. Blood pressure remains well controlled. He has not required any Levophed at this time. Lisinopril remains on hold. Will continue to follow closely. (4) Hyperlipidemia: Qualifiers: Hyperlipidemia type: unspecified Qualified Code(s): E78.5 - Hyperlipidemia, unspecified Code(s): E78.5 - Hyperlipidemia, unspecified Status: Chronic Assessment and Plan: Stable. Continue fenofibrate and ezetimibe. (5) DVT prophylaxis: Code(s): Z29.9 - Encounter for prophylactic measures, unspecified Status: Acute Assessment and Plan: Lovenox Additional Plan # Acute hypoxic respiratory failre: due to COVID 19. in ICU on BIPAP and airvo. cta negative for PE. CXR with diffuse bilateral pneumonia. covid positive. on empiric cef and azith for bacterial pneumonia. pumicort, bronchodlators continue current treatment and plan, critically ill intubated 10/17 for respiratory failure. mgmt per critical team. # Pneumonia due to covid 19 virus: droplet isolation. on decadron. not a candidate for remdesivir # Hypertension: Monitor blood pressure. lisinopril # Hyperlipidemia: Continue fenofibrate and ezetimibe. # DVT proh; Lovenox Subjective Date/time seen: 10/19/20 08:36 Interval history: 70yo male with HTH, HLD and recently tested positive for COVID (09/29/20) here for acute respiratory failure. Assuming care. Chart reviewed. Patient intubated and sedated and thus unable to provide history. Patietn not requiring Levophed. He remains sedated and paralyzed. He is tolerating his trickle TF. He alsi is tolerating being prone. Review of Systems Review of Systems: ROS unobtainable: Yes unobtainable due to endotracheal tube Exam Narrative: Exam Narrative: AF 96.5 142/80 88 26 97% MV Peep 10 on 60% FiO2 Gen -patient intubated, sedated and paralyzed lying prone HEENT -OG and ETT secured Chest -mild bibasilar inspiratory crackles. CV - RRR S1/S2. Telemetry showing no significant dysrhythmias Abd -soft. Positive bowel sounds -Emmanuel secured draining clear yellow. Ext - No pedal edema. 2+ DP pulses bilaterally. Neuro -sedated and paralyzed Skin - Warm and dry Objective Data Vital Signs Vital Signs: Vital Signs - 24 hr 10/18/20 09:10 10/18/20 09:40 10/18/20 09:43 Temperature Pulse Rate 86 105 H 103 H Respiratory Rate 30 H 30 H 30 H Blood Pressure 123/61 Pulse Oximetry 10/18/20 10:00 10/18/20 10:57 10/18/20 11:01 Temperature Pulse Rate 96 86
--- NOTE | 2020-10-19 09:19 | PCRCNOTE ---
Pt was unproned at this time.
--- NOTE | 2020-10-19 10:58 | PCDIET ---
Nutrition Follow-Up Complete: Nutrition Diagnosis: Inadequate oral intake related to oral intubation as evidenced by NPO status. Nutrition Goal: Patient to meet estimated nutritional needs. Goal in progress. Patient tolerating Nepro at 20mL/hr with 30mL water flush every 4 hours. Recommend increase to 40mL/hr x 22 hours/day for 1584kcal (1999kcal with Propofol at current rate) and 71g protein. Will likely recommend addition of protein flush as Propofol is titrated down. Last recorded weight is 109.8 kg which is down from last review. Bowel Motility: Last documented BM on 10/16/20. Discussed during rounds. Labs Reviewed: Hgb (12.0), Hct (37.9), Glu (139), BUN (42), Na (133), Alb (3.0), Mg (2.6) Meds Noted: Propofol (rate of 15.72mL/hr provides 415kcal per day), Albuterol, Nimbex, Fentanyl, Levophed, Vitamin D, Vitamin C, Decadron, Atrovent, Zinc Sulfate, Pulmicort, Zetia, Tricor, Protonix Additional Notes: Patient currently not prone with plan for prone positioning later today. No documented skin breakdown. Will continue to monitor with same goal. Nutrition Monitoring and Evaluation: Follow up every Sunday/Sunday. Follow daily in ICU rounds.
[2020-10-19 12:07] LABS: Glucose Point of Care 166 (65-105)
[2020-10-19] MEDS: CISATRACURIUM BESYLATE 200 MG in DEXTROSE 5% 80 ML 7.86 ML IV CONT (14:25)
[2020-10-19] MEDS: FENTANYL 2,500MCG/NS250ML(*CRX 2,500 MCG/250 ML BAG 12.5 MCG IV CONT (17:54)
--- NOTE | 2020-10-19 18:38 | PCRCNOTE ---
1522 Pt [facility] at this time.
[2020-10-19] MEDS: PROPOFOL IV EMULSION 100 ML 18.86 MG IV CONT (19:36)
[2020-10-20] VITALS (44 sets, daily range): BP systolic 84–137; BP diastolic 58–77; PULSE 61–95; RESP 18–28; TEMP 36.4–37.4; O2SAT 94–98
[2020-10-20] MEDS: CISATRACURIUM BESYLATE 200 MG in DEXTROSE 5% 80 ML 11 ML IV CONT (00:07)
[2020-10-20] MEDS: PROPOFOL IV EMULSION 100 ML 19.76 MG IV CONT ×2 (00:14→05:31)
[2020-10-20] MEDS: ALBUTEROL SULFATE NEB 2.5 MG/0.5 ML INH INHALATION ×4 (02:10→19:54)
[2020-10-20] MEDS: IPRATROPIUM BR 0.02% INH SOLN 0.5 MG/2.5 ML VIAL INHALATION ×4 (02:10→19:54)
[2020-10-20 03:31] LABS: Glucose Point of Care 156 (65-105)
[2020-10-20] MEDS: CENTRAL LINE FLUSH 10 ML IV PUSH ×4 (04:23→21:01)
[2020-10-20 04:41] LABS: Hematocrit 37.4 % (42.0-52.0); Hemoglobin 11.8 g/dL (14.0-18.0); Mean Corpuscular HGB Conc 31.6 g/dl (32-36); Mean Corpuscular Hemoglobin 29.9 pg (26-34); Mean Corpuscular Volume 94.7 fl (80-100); Mean Platelet Volume 9.8 fl (7.4-10.4); Platelet Count Result 646 k/mm3 (150-375); Red Blood Count 3.95 M/mm3 (4.6-6.20); Red Cell Distribution Width 15.4 % (11.5-14.5); White Blood Count 12.9 K/mm3 (4.5-10.0)
[2020-10-20 04:59] LABS: Alanine Aminotransferase 20 U/L (4-50); Albumin Level 2.9 g/dL (3.5-5.1); Alkaline Phosphatase 66 U/L (38-126); Anion Gap 1 mmol/L (8-16); Aspartate Amino Transferase 53 U/L (17-59); Bilirubin,Total 0.6 mg/dL (0.2-1.3); Blood Urea Nitrogen 37 mg/dL (9-20); Calcium 8.9 mg/dL (8.4-10.2); Carbon Dioxide 33 mmol/L (22-30); Chloride 99 mmol/L (98-107); Estimated CRCL calculation 79 ml/min; Estimated Glomerular Filt Rate > 60; Glucose 129 mg/dL (75-110); Magnesium 2.3 mg/dL (1.6-2.3); Phosphorus 3.6 mg/dL (2.5-4.5); Potassium 5.1 mmol/L (3.4-5.0); Sodium 133 mmol/L (137-145)
[2020-10-20 05:54] LABS: Fractional Inspired Oxygen 60 %; Oxygen Saturation ABG 98.7 % (95.0-100.0)
[2020-10-20 06:00] LABS: PCO2 ABG 40.4 mmHg (35.0-45.0); PO2 ABG 129.4 mmHg (80.0-100.0); pH ABG 7.456 (7.350-7.450)
[2020-10-20 06:01] LABS: Base Excess ABG 3.7 mEq/l (+/-2.0); Carboxyhemoglobin 0.3 % THb (0-2.0); HCO3 ABG 27.8 mEq/l (22.0-26.0); Methemoglobin ABG 0.2 %THb (0-1.5); Oxyhemoglobin 97.5 % THb (90.0-100.0)
[2020-10-20 06:02] LABS: Device VENTILATOR; Modified Allen's Test Pass; PO2 FiO2 Ratio Arterial Blood 2.16 %; Site Drawn LEFT RADIAL
[2020-10-20 06:05] LABS: Arterial Blood Gas PEEP 10 cmH2O; Arterial Blood Gas Tidal Volume 400 ml; Arterial Blood Gas Vent Mode CMV; Arterial Blood Gas Ventilator rate 26 /MIN
[2020-10-20] MEDS: BUDESONIDE RESPULE NEB 0.5 MG/2 ML AMP 1 MG INHALATION ×2 (07:50→19:54)
--- NOTE | 2020-10-20 08:18 | WPDINTPN ---
Progress Note: A&P Assessment and Plan (1) Acute respiratory failure with hypoxia: Code(s): J96.01 - Acute respiratory failure with hypoxia Status: Acute Assessment and Plan: Acute respiratory failure likely related to COVID-19 pneumonia and/or bacterial pneumonia. Intubated on 10/17/2020 -ARDS physiology, patient on low tidal volume strategy, 6 mL/kg of tidal volume, will maintain plateau pressures <30 -peep of 10 and 60% FiO2, wean FiO2 as tolerated maintain O2 sats greater than 92% -patient is being placed in prone position for up to 16 hours daily -continue Pulmicort -continue bronchodilators -continue fentanyl, propofol for sedation -will wean Nimbex to off (2) Pneumonia due to COVID-19 virus: Code(s): U07.1 - COVID-19; J12.82 - Pneumonia due to coronavirus disease 2019 Status: Acute Assessment and Plan: SARS-CoV-2 PCR 09/29/2020 and had symptoms days for that -patient was not a candidate for Remdesivir as he was out of the window period. -continue dexamethasone, initiated on 10/13/2020 -inflammatory markers trending down, will continue to trend (3) Hyperlipidemia: Qualifiers: Hyperlipidemia type: unspecified Qualified Code(s): E78.5 - Hyperlipidemia, unspecified Code(s): E78.5 - Hyperlipidemia, unspecified Status: Chronic Assessment and Plan: Continue Fenofibrate and ezetimibe (4) Hypertension: Qualifiers: Hypertension type: unspecified Qualified Code(s): I10 - Essential (primary) hypertension Code(s): I10 - Essential (primary) hypertension Status: Chronic Assessment and Plan: Blood pressures have been stable, will hold lisinopril (5) DVT prophylaxis: Code(s): Z29.9 - Encounter for prophylactic measures, unspecified Status: Acute Assessment and Plan: DVT prophylaxis: Lovenox 40 mg subcutaneously Q12H Additional Plan Discussed with patient's Beth and updated her with patient's condition and plan of care. I answered all questions 10/17: Dr. Lesley Ruiz discussed with patient's Beth updated with his condition and plan of care. Beth also requested that I speak to her friend Renae. I called Renae and she requested that I start the patient on hydroxychloroquine. He explained to Renae and Beth that hydroxychloroquine has been proven not to be effective in COVID-19 and may be harmful and cause life-threatening cardiac arrhythmias. Code status: Full code Critical care time spent: 34 minutes This dictation may have been done utilizing a voice recognition system. Attempts have been made to correct errors. However, there may be uncorrected grammatical, spelling, and recognition errors present. Due to a high probability of clinically significant, life threatening deterioration, the patient required my highest level of preparedness to intervene emergently and I personally spent this critical care time directly and personally managing the patient. This critical care time included obtaining a history; examining the patient; pulse oximetry; ordering and review of studies; arranging urgent treatment with development of a management plan; evaluation of patient's response to treatment; frequent reassessment; and discussions with other providers. It was exclusive of separately billable procedures and treating other patients and teaching time. Please see Assessment and Plan section and the rest of the note for further information on patient assessment and treatment Subjective Date/time seen: 10/20/20 08:18 Interval history: Reason for consult: Respiratory failure, COVID-19 pneumonia -intubated on 10/17/2020 10/20/2020: Patient seen and examined, remains on CMV mode of ventilation, peep of 10 and 60% FiO2. Patient has been in prone position for approx 16 hours daily and tolerating with adequate O2 sats. He has some facial and periorbital swelling. ABGs also shows adequa
[2020-10-20] MEDS: ENOXAPARIN 40 MG/0.4 ML SYRINGE SUB-Q ×2 (09:09→20:15)
[2020-10-20] MEDS: CHOLECALCIFEROL 1,000 UNITS TABLET 5000 UNITS PO (09:09)
[2020-10-20] MEDS: ASPIRIN 81 MG ENTERIC TABLET PO (09:09)
[2020-10-20] MEDS: ASCORBIC ACID 500 MG TABLET 1000 MG PO (09:10)
[2020-10-20] MEDS: PANTOPRAZOLE SODIUM IV 40 MG VIAL IV PUSH (09:11)
[2020-10-20] MEDS: ZINC SULFATE 220 MG CAPSULE PO (09:11)
[2020-10-20] MEDS: DEXAMETHASONE SOD PHOS INJ 4 MG/ML VIAL 6 MG IV PUSH (09:11)
[2020-10-20] MEDS: FENOFIBRATE NANOCRYSTALLIZED 145 MG TABLET PO (09:12)
[2020-10-20] MEDS: EZETIMIBE 10 MG TABLET PO (09:12)
[2020-10-20] MEDS: CISATRACURIUM BESYLATE 200 MG in DEXTROSE 5% 80 ML 6.29 ML IV CONT (10:39)
--- NOTE | 2020-10-20 10:41 | PCDIET ---
ICU Rounding Note: Patient tolerating Nepro at 40mL/hr with 30mL water flush every 4 hours. Recommend keeping tube feeding at 40mL/hr at this time, given that significant amount of calories are being provided through Propofol. Last recorded weight is 112.1kg which is increased from last review. +I/O. Bowel Motility: No additional BM - MD adding Miralax. Labs Reviewed: WBC (12.9), Hgb (11.8), Hct (37.4), Glu (129), K (5.1), Na (133), Alb (2.9) Meds Noted: Propofol (rate of 19.76mL/hr provides 522kcal per day), Albuterol, Vitamin C, Zetia, Tricor, Fentanyl, Atrovent, Pulmicort, Nimbex, Decadron, Protonix, Vitamin D, Zinc Sulfate Additional Notes: RN reports skin tears on cheeks. Mepilex applied. Patient was prone positioned overnight. Following daily in ICU rounds. Assessing/reassessing every Sunday/Sunday.
--- NOTE | 2020-10-20 11:15 | PM.IMPN ---
Progress Note: A&P Assessment and Plan (1) Acute respiratory failure with hypoxia: Code(s): J96.01 - Acute respiratory failure with hypoxia Status: Acute Assessment and Plan: The patient has been admitted to the ICU for respiratory failure. Initially on HFNC then BiPAP but ultimately required intubation 10/17. Currently intubated, sedated and paralyzes. FiO2 requirement stable. Wean vent as tolerated. Continue bronchodilators and treatment of Covid pneumonia with Decadron; he is too far out for Remdesivir or plasma. Appreciate Medical Clerk input. (2) Pneumonia due to COVID-19 virus: Code(s): U07.1 - COVID-19; J12.82 - Pneumonia due to coronavirus disease 2019 Status: Acute Assessment and Plan: CTA on admission (10/13) showed no pulmonary emboli but did show extensive patchy groundglass infiltrates scattered throughout both lungs. Patient tested positive for COVID on 09/29/20. No cultures ordered here. Current respiratory care as mentioned above. Will continue droplet isolation. Continue Decadron IV. Continue bronchodilators. Antibiotics stopped 10/16. Continue supportive care. (3) Hypertension: Qualifiers: Hypertension type: unspecified Qualified Code(s): I10 - Essential (primary) hypertension Code(s): I10 - Essential (primary) hypertension Status: Chronic Assessment and Plan: Patient's blood pressure was reviewed on 10/20 Blood pressure soft now but still not requiring Levophed. Lisinopril remains on hold. Will continue to follow closely. (4) Hyperlipidemia: Qualifiers: Hyperlipidemia type: unspecified Qualified Code(s): E78.5 - Hyperlipidemia, unspecified Code(s): E78.5 - Hyperlipidemia, unspecified Status: Chronic Assessment and Plan: Stable. Continue fenofibrate and ezetimibe. (5) DVT prophylaxis: Code(s): Z29.9 - Encounter for prophylactic measures, unspecified Status: Acute Assessment and Plan: Lovenox Subjective Date/time seen: 10/20/20 11:15 Interval history: 70yo male with HTH, HLD and recently tested positive for COVID (09/29/20) here for acute respiratory failure. Patient intubated and sedated and thus unable to provide history. Review of Systems Review of Systems: ROS unobtainable: Yes unobtainable due to endotracheal tube Exam Narrative: Exam Narrative: AF 98.2 90/63 65 26 96% MV Peep 10 on 60% FiO2 Gen -patient intubated, sedated and paralyzed HEENT -OG and ETT secured Chest - clear anteriorly, nml RR CV - RRR S1/S2. Telemetry showing no significant dysrhythmias Abd -soft. Positive bowel sounds -Emmanuel secured draining clear yellow. Ext - No pedal edema Neuro -sedated and paralyzed Skin - Warm and dry Objective Data Vital Signs Vital Signs: Vital Signs - 24 hr 10/19/20 11:37 10/19/20 12:00 10/19/20 14:00 Temperature 98.6 F Pulse Rate 96 87 70 Respiratory Rate 26 H 26 H Blood Pressure 104/60 91/59 L Pulse Oximetry 97 98 98 10/19/20 14:05 10/19/20 14:25 10/19/20 14:28 Temperature Pulse Rate 73 72 74 Respiratory Rate 26 H 26 H 26 H Blood Pressure 103/68 Pulse Oximetry 100 10/19/20 15:30 10/19/20 16:00 10/19/20 17:05 Temperature 99.0 F Pulse Rate 87 95 106 H Respiratory Rate 26 H 26 H Blood Pressure 114/63 Pulse Oximetry 94 96 97 10/19/20 17:54 10/19/20 18:00 10/19/20 19:36 Temperature Pulse Rate 98 98 101 H Respiratory Rate 26 H 26 H 26 H Blood Pressure 136/84 Pulse Oximetry 97 10/19/20 19:43 10/19/20 19:55 10/19/20 20:00 Temperature 98.9 F Pulse Rate 102 H 103 H 102 H Respiratory Rate 26 H 26 H 26 H Blood Pressure 147/84 H 145/79 H Pulse Oximetry 98 10/19/20 20:46 10/19/20 20:48 10/19/20 21:02 Temperature Pulse Rate 91 91 95 Respiratory Rate 26 H 26 H Blood Pressure Pulse Oximetry 97 10/19/20 22:00 10/19/20 22:13 10/19/20 22:14 Temperature Pul
[2020-10-20] MEDS: PROPOFOL IV EMULSION 100 ML 16.47 MG IV CONT ×3 (11:31→23:30)
[2020-10-20] MEDS: polyethylene glycoL 3350 17 GM POWD.PACK PO (11:32)
[2020-10-20 12:04] LABS: Glucose Point of Care 144 (65-105)
[2020-10-20] MEDS: FENTANYL 2,500MCG/NS250ML(*CRX 2,500 MCG/250 ML BAG 10 MCG IV CONT (14:43)
[2020-10-21] VITALS (38 sets, daily range): BP systolic 89–121; BP diastolic 55–72; PULSE 60–104; RESP 26–27; TEMP 36.6–37.7; O2SAT 92–99
[2020-10-21] MEDS: ALBUTEROL SULFATE NEB 2.5 MG/0.5 ML INH INHALATION ×3 (02:11→13:29)
[2020-10-21] MEDS: IPRATROPIUM BR 0.02% INH SOLN 0.5 MG/2.5 ML VIAL INHALATION ×3 (02:11→13:29)
[2020-10-21 04:11] LABS: Hematocrit 36.9 % (42.0-52.0); Hemoglobin 11.5 g/dL (14.0-18.0); Mean Corpuscular HGB Conc 31.2 g/dl (32-36); Mean Corpuscular Hemoglobin 29.5 pg (26-34); Mean Corpuscular Volume 94.6 fl (80-100); Mean Platelet Volume 9.8 fl (7.4-10.4); Platelet Count Result 609 k/mm3 (150-375); Red Cell Distribution Width 15.2 % (11.5-14.5); White Blood Count 16.5 K/mm3 (4.5-10.0)
[2020-10-21 04:24] LABS: Alanine Aminotransferase 25 U/L (4-50); Albumin Level 2.9 g/dL (3.5-5.1); Alkaline Phosphatase 58 U/L (38-126); Anion Gap -1 mmol/L (8-16); Aspartate Amino Transferase 69 U/L (17-59); Bilirubin,Total 0.7 mg/dL (0.2-1.3); Blood Urea Nitrogen 43 mg/dL (9-20); CRP 2.8 mg/dL (<1.0); Calcium 9.4 mg/dL (8.4-10.2); Carbon Dioxide 34 mmol/L (22-30); Chloride 100 mmol/L (98-107); Estimated CRCL calculation 71 ml/min; Estimated Glomerular Filt Rate > 60; Glucose 125 mg/dL (75-110); Lactate Dehydrogenase 902 U/L (313-618); Magnesium 2.1 mg/dL (1.6-2.3); Phosphorus 3.8 mg/dL (2.5-4.5); Potassium 4.9 mmol/L (3.4-5.0); Sodium 133 mmol/L (137-145)
[2020-10-21 04:58] LABS: Base Excess ABG 2.9 mEq/l (+/-2.0); Carboxyhemoglobin 0.3 % THb (0-2.0); Fractional Inspired Oxygen 40 %; HCO3 ABG 26.5 mEq/l (22.0-26.0); Methemoglobin ABG 0.1 %THb (0-1.5); Oxygen Content ABG 16.6 %vol (16.0-22.0); Oxyhemoglobin 96.6 % THb (90.0-100.0); PCO2 ABG 37.4 mmHg (35.0-45.0); PO2 ABG 101.2 mmHg (80.0-100.0); PO2 FiO2 Ratio Arterial Blood 2.53 %; Total Hemoglobin 12.1 g/dL (12.0-18.0); pH ABG 7.469 (7.350-7.450)
[2020-10-21 04:59] LABS: Device VENTILATOR; Modified Allen's Test Unable to perform; Site Drawn RIGHT RADIAL
[2020-10-21 05:00] LABS: Arterial Blood Gas PEEP 10 cmH2O; Arterial Blood Gas Tidal Volume 400 ml; Arterial Blood Gas Vent Mode CMV; Arterial Blood Gas Ventilator rate 26 /MIN
[2020-10-21 05:05] LABS: D Dimer 2.67 ug/mL (<0.48)
[2020-10-21] MEDS: PROPOFOL IV EMULSION 100 ML 16.47 MG IV CONT ×4 (05:15→23:05)
[2020-10-21] MEDS: CENTRAL LINE FLUSH 10 ML IV PUSH ×4 (05:16→22:03)
[2020-10-21] MEDS: BUDESONIDE RESPULE NEB 0.5 MG/2 ML AMP 1 MG INHALATION (07:30)
--- NOTE | 2020-10-21 07:39 | WPDINTPN ---
Progress Note: A&P Assessment and Plan (1) Acute respiratory failure with hypoxia: Code(s): J96.01 - Acute respiratory failure with hypoxia Status: Acute Assessment and Plan: Acute respiratory failure likely related to COVID-19 pneumonia and/or bacterial pneumonia. Intubated on 10/17/2020 -ARDS physiology, patient on low tidal volume strategy, 6 mL/kg of tidal volume, will maintain plateau pressures <30 -peep of 10 and 40% FiO2, wean FiO2 as tolerated maintain O2 sats greater than 92%, decreased PEEP to 8 -chest x-ray this morning shows improvement -continue Pulmicort -continue bronchodilators -continue fentanyl, propofol for sedation -patient of Nimbex since 10/20/2020 (2) Pneumonia due to COVID-19 virus: Code(s): U07.1 - COVID-19; J12.82 - Pneumonia due to coronavirus disease 2019 Status: Acute Assessment and Plan: SARS-CoV-2 PCR 09/29/2020 and had symptoms days for that -patient was not a candidate for Remdesivir as he was out of the window period. -continue dexamethasone, initiated on 10/13/2020 -inflammatory markers trending down, will continue to trend (3) Hyperlipidemia: Qualifiers: Hyperlipidemia type: unspecified Qualified Code(s): E78.5 - Hyperlipidemia, unspecified Code(s): E78.5 - Hyperlipidemia, unspecified Status: Chronic Assessment and Plan: Continue Fenofibrate and ezetimibe (4) Hypertension: Qualifiers: Hypertension type: unspecified Qualified Code(s): I10 - Essential (primary) hypertension Code(s): I10 - Essential (primary) hypertension Status: Chronic Assessment and Plan: Blood pressures have been stable, will hold lisinopril (5) DVT prophylaxis: Code(s): Z29.9 - Encounter for prophylactic measures, unspecified Status: Acute Assessment and Plan: DVT prophylaxis: Lovenox 40 mg subcutaneously Q12H Additional Plan Discussed with patient's Beth and updated her with patient's condition and plan of care. I answered all questions 10/17: Dr. Lesley Ruiz discussed with patient's Beth updated with his condition and plan of care. Beth also requested that I speak to her friend Renae. I called Renae and she requested that I start the patient on hydroxychloroquine. He explained to Renae and Beth that hydroxychloroquine has been proven not to be effective in COVID-19 and may be harmful and cause life-threatening cardiac arrhythmias. Code status: Full code Critical care time spent: 33 minutes This dictation may have been done utilizing a voice recognition system. Attempts have been made to correct errors. However, there may be uncorrected grammatical, spelling, and recognition errors present. Due to a high probability of clinically significant, life threatening deterioration, the patient required my highest level of preparedness to intervene emergently and I personally spent this critical care time directly and personally managing the patient. This critical care time included obtaining a history; examining the patient; pulse oximetry; ordering and review of studies; arranging urgent treatment with development of a management plan; evaluation of patient's response to treatment; frequent reassessment; and discussions with other providers. It was exclusive of separately billable procedures and treating other patients and teaching time. Please see Assessment and Plan section and the rest of the note for further information on patient assessment and treatment Subjective Date/time seen: 10/21/20 07:39 Interval history: Reason for consult: Respiratory failure, COVID-19 pneumonia -intubated on 10/17/2020 10/21/2020: Patient seen and examined, remains on CMV mode of ventilation, peep of 10 and 40% FiO2. Afebrile, hemodynamically stable, adequate urine output. Patient has been off Nimbex since 10/20/2020. On fentanyl and propofol for sedation. Patient opens hi
[2020-10-21] MEDS: FENOFIBRATE NANOCRYSTALLIZED 145 MG TABLET PO (08:31)
[2020-10-21] MEDS: ZINC SULFATE 220 MG CAPSULE PO (08:31)
[2020-10-21] MEDS: CHOLECALCIFEROL 1,000 UNITS TABLET 5000 UNITS PO (08:31)
[2020-10-21] MEDS: DEXAMETHASONE SOD PHOS INJ 4 MG/ML VIAL 6 MG IV PUSH (08:31)
[2020-10-21] MEDS: PANTOPRAZOLE SODIUM IV 40 MG VIAL IV PUSH (08:31)
[2020-10-21] MEDS: ASPIRIN 81 MG ENTERIC TABLET PO (08:32)
[2020-10-21] MEDS: ENOXAPARIN 40 MG/0.4 ML SYRINGE SUB-Q ×2 (08:32→20:00)
[2020-10-21] MEDS: polyethylene glycoL 3350 17 GM POWD.PACK PO (08:32)
[2020-10-21] MEDS: ASCORBIC ACID 500 MG TABLET 1000 MG PO (08:32)
[2020-10-21] MEDS: EZETIMIBE 10 MG TABLET PO (08:32)
--- NOTE | 2020-10-21 08:39 | PM.IMPN ---
Progress Note: A&P Assessment and Plan (1) Acute respiratory failure with hypoxia: Code(s): J96.01 - Acute respiratory failure with hypoxia Status: Acute Assessment and Plan: The patient has been admitted to the ICU for respiratory failure. Initially on HFNC then BiPAP but ultimately required intubation 10/17. Currently intubated and sedated; paralytics stopped on 10/20. FiO2 requirement able to be decreased; PEEP down to 8. Wean vent as tolerated. Continue bronchodilators and treatment of Covid pneumonia with Decadron; he is too far out for Remdesivir or plasma. Appreciate Customer Account Representative input. (2) Pneumonia due to COVID-19 virus: Code(s): U07.1 - COVID-19; J12.82 - Pneumonia due to coronavirus disease 2019 Status: Acute Assessment and Plan: CTA on admission (10/13) showed no pulmonary emboli but did show extensive patchy ground glass infiltrates scattered throughout both lungs. Patient tested positive for COVID on 09/29/20. No cultures ordered here. WBC higher today but inflammatory markers are all trending down. Current respiratory care as mentioned above. Will continue droplet isolation. Continue Decadron IV. Continue bronchodilators. Antibiotics stopped 10/16. Continue supportive care. (3) Hypertension: Qualifiers: Hypertension type: unspecified Qualified Code(s): I10 - Essential (primary) hypertension Code(s): I10 - Essential (primary) hypertension Status: Chronic Assessment and Plan: Patient's blood pressure was reviewed on 10/21 Blood pressure still soft at times but still not requiring Levophed. Lisinopril remains on hold. Will continue to follow closely. (4) Hyperlipidemia: Qualifiers: Hyperlipidemia type: unspecified Qualified Code(s): E78.5 - Hyperlipidemia, unspecified Code(s): E78.5 - Hyperlipidemia, unspecified Status: Chronic Assessment and Plan: Stable. Continue fenofibrate and ezetimibe. (5) DVT prophylaxis: Code(s): Z29.9 - Encounter for prophylactic measures, unspecified Status: Acute Assessment and Plan: Lovenox Subjective Date/time seen: 10/21/20 08:39 Interval history: 70yo male with HTH, HLD and recently tested positive for COVID (09/29/20) here for acute respiratory failure currently intubated since 10/17/20. Patient intubated and sedated and thus unable to provide history. He is more awake and following commands. Off paralytics since 10/20. Toelrating TF. Review of Systems Review of Systems: ROS unobtainable: Yes unobtainable due to endotracheal tube Exam Narrative: Exam Narrative: AF 99.8 107/63 78 26 95% MV Peep 8 on 40% FiO2 Gen -patient intubated and on sedation HEENT -OG and ETT secured; mild edema noted to right mary kate-orbital area. PERRL, EOMI difficult to assess Chest - clear anteriorly and in the flanks, nml RR CV - RRR S1/S2. Telemetry showing significant dysrhythmias Abd -soft. Positive bowel sounds. no apparent tenderness -Emmanuel secured draining clear yellow. Ext - No pedal edema Neuro -sedated but has eyes open and follows commands Skin - Warm and dry Objective Data Vital Signs Vital Signs: Vital Signs - 24 hr 10/20/20 09:05 10/20/20 09:20 10/20/20 10:00 Temperature Pulse Rate 66 73 68 Respiratory Rate 26 H 26 H 26 H Blood Pressure 95/71 L 112/69 89/64 L Pulse Oximetry 96 10/20/20 10:39 10/20/20 10:40 10/20/20 10:58 Temperature Pulse Rate 67 65 65 Respiratory Rate 26 H 26 H 26 H Blood Pressure 84/60 L Pulse Oximetry 10/20/20 11:31 10/20/20 11:46 10/20/20 12:00 Temperature 98.7 F Pulse Rate 80 87 81 Respiratory Rate 26 H 26 H Blood Pressure 121/69 Pulse Oximetry 96 97 10/20/20 14:00 10/20/20 14:08 10/20/20 14:13 Temperature Pulse Rate 64 62 62 Respiratory Rate 26 H 26 H Blood Pressure 92/64 L Pulse Oximetry 97 97 10/20/20 14:14 10/20/20 14:30 10/20/20 14:43 Te
--- NOTE | 2020-10-21 10:11 | PCDIET ---
ICU Rounding Note: Patient tolerating Nepro at 40mL/hr goal with 30mL water flush every 4 hours. Continues on Propofol at 16.47mL/hr which provides 435kcal per day. Last recorded weight is 103kg which is down from last review. Bowel Motility: No BM reported. adding Colace, and patient is on Miralax. Labs Reviewed: Hgb (11.5), Hct (36.9), BUN (43), K (4.9), Na (133), Alb (2.9) Meds Noted: Albuterol, Decadron, Fentanyl, Miralax, Vitamin C, Zetia, Atrovent, Propofol, Pulmicort, Tricor, Protonix, Vitamin D, Zinc Sulfate Additional Notes: Mepilex to cheeks. No other skin breakdown reported. Following daily in ICU rounds. Assessing/reassessing every Sunday/Sunday.
[2020-10-21] MEDS: FENTANYL 2,500MCG/NS250ML(*CRX 2,500 MCG/250 ML BAG 10 MCG IV CONT (12:53)
[2020-10-21] MEDS: SENNA/DOCUSATE SODIUM TABLET 1 TAB PO (20:01)
[2020-10-21 23:26] LABS: Glucose Point of Care 120 (65-105)
[2020-10-22] VITALS (41 sets, daily range): BP systolic 98–149; BP diastolic 58–84; PULSE 60–107; RESP 16–28; TEMP 36.6–37.1; O2SAT 92–98
[2020-10-22] MEDS: IPRATROPIUM BR 0.02% INH SOLN 0.5 MG/2.5 ML VIAL INHALATION ×4 (02:51→21:51)
[2020-10-22] MEDS: ALBUTEROL SULFATE NEB 2.5 MG/0.5 ML INH INHALATION ×4 (02:51→21:52)
[2020-10-22] MEDS: PROPOFOL IV EMULSION 100 ML 16.47 MG IV CONT (04:02)
[2020-10-22 04:18] LABS: Hematocrit 37.3 % (42.0-52.0); Hemoglobin 11.7 g/dL (14.0-18.0); Mean Corpuscular HGB Conc 31.4 g/dl (32-36); Mean Corpuscular Hemoglobin 29.6 pg (26-34); Mean Corpuscular Volume 94.4 fl (80-100); Mean Platelet Volume 9.8 fl (7.4-10.4); Platelet Count Result 625 k/mm3 (150-375); Red Blood Count 3.95 M/mm3 (4.6-6.20); Red Cell Distribution Width 14.8 % (11.5-14.5); White Blood Count 16.7 K/mm3 (4.5-10.0)
[2020-10-22 04:23] LABS: Alveolar/Arterial O2 Gradient 182.3 mmHg; Base Excess ABG 2.3 mEq/l (+/-2.0); Carboxyhemoglobin 0.3 % THb (0-2.0); Fractional Inspired Oxygen 45 %; HCO3 ABG 26.4 mEq/l (22.0-26.0); Methemoglobin ABG 0.3 %THb (0-1.5); Oxygen Saturation ABG 97.5 % (95.0-100.0); Oxyhemoglobin 96.2 % THb (90.0-100.0); PCO2 ABG 38.8 mmHg (35.0-45.0); PO2 ABG 94.4 mmHg (80.0-100.0); Reduced Hemoglobin 3.2 %THb (0-5.0); Total Hemoglobin 12.5 g/dL (12.0-18.0)
[2020-10-22 04:24] LABS: Arterial Blood Gas PEEP 8 cmH2O; Arterial Blood Gas Tidal Volume 400 ml; Arterial Blood Gas Vent Mode CMV; Arterial Blood Gas Ventilator rate 26 /MIN; Device VENTILATOR; Modified Allen's Test Pass; Site Drawn RIGHT RADIAL
[2020-10-22 04:31] LABS: Alanine Aminotransferase 23 U/L (4-50); Albumin Level 2.9 g/dL (3.5-5.1); Alkaline Phosphatase 62 U/L (38-126); Anion Gap -1 mmol/L (8-16); Aspartate Amino Transferase 60 U/L (17-59); Bilirubin,Total 0.5 mg/dL (0.2-1.3); Blood Urea Nitrogen 39 mg/dL (9-20); Calcium 9.4 mg/dL (8.4-10.2); Carbon Dioxide 34 mmol/L (22-30); Chloride 102 mmol/L (98-107); Estimated CRCL calculation 61 ml/min; Estimated Glomerular Filt Rate > 60; Glucose 114 mg/dL (75-110); Magnesium 1.9 mg/dL (1.6-2.3); Phosphorus 3.9 mg/dL (2.5-4.5); Potassium 4.3 mmol/L (3.4-5.0); Sodium 135 mmol/L (137-145)
[2020-10-22] MEDS: CENTRAL LINE FLUSH 10 ML IV PUSH ×3 (06:22→22:52)
[2020-10-22] MEDS: BUDESONIDE RESPULE NEB 0.5 MG/2 ML AMP 1 MG INHALATION ×2 (07:50→21:52)
--- NOTE | 2020-10-22 08:50 | WPDINTPN ---
Progress Note: A&P Assessment and Plan (1) Acute respiratory failure with hypoxia: Code(s): J96.01 - Acute respiratory failure with hypoxia Status: Acute Assessment and Plan: Acute respiratory failure likely related to COVID-19 pneumonia and/or bacterial pneumonia. Intubated on 10/17/2020 -ARDS physiology, patient on low tidal volume strategy, 6 mL/kg of tidal volume, will maintain plateau pressures <30 -peep of 8 and 45% FiO2, with adequate O2 sats. -chest x-ray and ABGs reviewed this morning -continue Pulmicort -continue bronchodilators -continue fentanyl, propofol for sedation, will wean sedation, and place patient on SBT and evaluate for extubation. I did explain to the patient regarding weaning him off the sedation and trying him on a breathing trial before removing the tube, he nodded as he comprehended -patient of [facility] since 10/20/2020 (2) Pneumonia due to COVID-19 virus: Code(s): U07.1 - COVID-19; J12.82 - Pneumonia due to coronavirus disease 2019 Status: Acute Assessment and Plan: SARS-CoV-2 PCR 09/29/2020 and had symptoms days for that -patient was not a candidate for Remdesivir as he was out of the window period. -continue dexamethasone, initiated on 10/13/2020 -inflammatory markers trending down, will continue to trend (3) Hyperlipidemia: Qualifiers: Hyperlipidemia type: unspecified Qualified Code(s): E78.5 - Hyperlipidemia, unspecified Code(s): E78.5 - Hyperlipidemia, unspecified Status: Chronic Assessment and Plan: Continue Fenofibrate and ezetimibe (4) Hypertension: Qualifiers: Hypertension type: unspecified Qualified Code(s): I10 - Essential (primary) hypertension Code(s): I10 - Essential (primary) hypertension Status: Chronic Assessment and Plan: Blood pressures have been stable, will hold lisinopril (5) DVT prophylaxis: Code(s): Z29.9 - Encounter for prophylactic measures, unspecified Status: Acute Assessment and Plan: DVT prophylaxis: Lovenox 40 mg subcutaneously Q12H Additional Plan Discussed with patient's Beth and updated her with patient's condition and plan of care. I answered all questions Code status: Full code Critical care time spent: 34 minutes This dictation may have been done utilizing a voice recognition system. Attempts have been made to correct errors. However, there may be uncorrected grammatical, spelling, and recognition errors present. Due to a high probability of clinically significant, life threatening deterioration, the patient required my highest level of preparedness to intervene emergently and I personally spent this critical care time directly and personally managing the patient. This critical care time included obtaining a history; examining the patient; pulse oximetry; ordering and review of studies; arranging urgent treatment with development of a management plan; evaluation of patient's response to treatment; frequent reassessment; and discussions with other providers. It was exclusive of separately billable procedures and treating other patients and teaching time. Please see Assessment and Plan section and the rest of the note for further information on patient assessment and treatment Subjective Date/time seen: 10/22/20 08:50 Interval history: Reason for consult: Respiratory failure, COVID-19 pneumonia -intubated on 10/17/2020 10/22/2020: Patient remains intubated on CMV mode of ventilation, peep of 8, 45% FiO2. Patient is afebrile, hemodynamically stable, adequate urine output. Tolerating tube feeds, no bowel movements. Patient on fentanyl and propofol for sedation, opens his eyes to name, follows simple commands and nods to questions Review of Systems Review of Systems: ROS unobtainable: Yes unobtainable due to endotracheal tube, unobtainable due to medical condition and unobtainable due to mental status Exam
[2020-10-22] MEDS: FUROSEMIDE INJ 40 MG/4 ML VIAL 20 MG IV PUSH (08:54)
[2020-10-22] MEDS: DEXAMETHASONE SOD PHOS INJ 4 MG/ML VIAL 6 MG IV PUSH (08:55)
[2020-10-22] MEDS: PANTOPRAZOLE SODIUM IV 40 MG VIAL IV PUSH (08:55)
[2020-10-22] MEDS: CHOLECALCIFEROL 1,000 UNITS TABLET 5000 UNITS PO (08:55)
[2020-10-22] MEDS: ASPIRIN 81 MG ENTERIC TABLET PO (08:55)
[2020-10-22] MEDS: ASCORBIC ACID 500 MG TABLET 1000 MG PO (08:55)
[2020-10-22] MEDS: FENOFIBRATE NANOCRYSTALLIZED 145 MG TABLET PO (08:55)
[2020-10-22] MEDS: ZINC SULFATE 220 MG CAPSULE PO (08:55)
[2020-10-22] MEDS: polyethylene glycoL 3350 17 GM POWD.PACK PO (08:56)
[2020-10-22] MEDS: EZETIMIBE 10 MG TABLET PO (08:56)
[2020-10-22] MEDS: ENOXAPARIN 40 MG/0.4 ML SYRINGE SUB-Q ×2 (08:56→20:05)
--- NOTE | 2020-10-22 11:01 | PCNFU ---
Nutrition Follow-Up Complete: Inadequate oral intake related to oral intubation as evidenced by NPO status. goal: Patient to meet estimated nutritional needs. Progressing towards goal. We will continue current goal. Pt current nutrition Nepro. Tube feedings on hold. Last recorded weight is 99.7 kg,111,4 kg on admit. Bowel Motility:+BM reported 10/16. Labs Reviewed:BUN 39,Na 135,Hct 37.3,Hgb 11.7 Meds Noted:Propofol at 9.88 ml/bh=209 kcals, Miralax, Colace, Vit C, Lovenox,Tricor,Zetia. Additional Notes: Nutrition follow up. Patient is currently on mechanical vent, TF on hold for possible extubation. Breathing trial today. Mepilex to cheek. Monitoring: Follow up every Sunday/Sunday. Follow daily in ICU rounds.
--- NOTE | 2020-10-22 12:05 | PM.IMPN ---
Progress Note: A&P Assessment and Plan (1) Acute respiratory failure with hypoxia: Code(s): J96.01 - Acute respiratory failure with hypoxia Status: Acute Assessment and Plan: The patient has been admitted to the ICU for respiratory failure. Initially on HFNC then BiPAP but ultimately required intubation 10/17. Currently intubated and sedated; paralytics stopped on 10/20. FiO2 requirement able to be decreased; PEEP down to 8. Wean vent as tolerated. Tolerating weaning of sedation. Continue bronchodilators and treatment of COVID-19 pneumonia with Decadron; he is too far out for Remdesivir or plasma. Appreciate Steam Powerplant Supervisor input. (2) Pneumonia due to COVID-19 virus: Code(s): U07.1 - COVID-19; J12.82 - Pneumonia due to coronavirus disease 2019 Status: Acute Assessment and Plan: CTA on admission (10/13) showed no pulmonary emboli but did show extensive patchy ground glass infiltrates scattered throughout both lungs. Patient tested positive for COVID on 09/29/20. No cultures ordered here. WBC stable today. Current respiratory care as mentioned above. Will continue droplet isolation. Continue Decadron IV. Continue bronchodilators. Antibiotics stopped 10/16. Continue supportive care. (3) Hypertension: Qualifiers: Hypertension type: unspecified Qualified Code(s): I10 - Essential (primary) hypertension Code(s): I10 - Essential (primary) hypertension Status: Chronic Assessment and Plan: Patient's blood pressure was reviewed on 10/22 Blood pressure still soft at times but still not requiring Levophed. Lisinopril remains on hold. Will continue to follow closely. (4) Hyperlipidemia: Qualifiers: Hyperlipidemia type: unspecified Qualified Code(s): E78.5 - Hyperlipidemia, unspecified Code(s): E78.5 - Hyperlipidemia, unspecified Status: Chronic Assessment and Plan: Stable. Continue fenofibrate and ezetimibe. (5) DVT prophylaxis: Code(s): Z29.9 - Encounter for prophylactic measures, unspecified Status: Acute Assessment and Plan: Lovenox Subjective Date/time seen: 10/22/20 12:05 Interval history: 70yo male with HTH, HLD and recently tested positive for COVID (09/29/20) here for acute respiratory failure currently intubated since 10/17/20. Patient intubated but awake and alert. He denies CP or abd pain. TF off as he is having a breathing trial. Review of Systems Review of Systems: ROS unobtainable: Yes unobtainable due to mental status Exam Narrative: Exam Narrative: AF 98.4 113/61 97 20 96% MV Peep 8 on 40% FiO2 Gen -patient intubated and on sedation but awake HEENT -OG and ETT secured; mild edema noted to right mary kate-orbital area that is improved Chest - clear anteriorly and in the flanks, nml RR CV - RRR S1/S2. Telemetry showing significant dysrhythmias Abd -soft. Positive bowel sounds. no tenderness -Emmanuel secured draining clear yellow. Ext - No pedal edema Neuro - awake and alert. Writing messages. Skin - Warm and dry Objective Data Vital Signs Vital Signs: Vital Signs - 24 hr 10/21/20 12:53 10/21/20 12:54 10/21/20 13:00 Temperature Pulse Rate 60 60 60 Respiratory Rate 26 H 26 H 26 H Blood Pressure 119/72 Pulse Oximetry 95 10/21/20 13:45 10/21/20 14:00 10/21/20 14:30 Temperature Pulse Rate 67 97 104 H Respiratory Rate 26 H 26 H Blood Pressure 119/61 Pulse Oximetry 95 92 10/21/20 16:00 10/21/20 16:31 10/21/20 16:48 Temperature 98.1 F Pulse Rate 65 76 74 Respiratory Rate 26 H 26 H Blood Pressure 105/62 Pulse Oximetry 97 96 10/21/20 17:34 10/21/20 17:35 10/21/20 18:00 Temperature Pulse Rate 60 60 60 Respiratory Rate 26 H 26 H 26 H Blood Pressure 90/55 L Pulse Oximetry 97 10/21/20 19:53 10/21/20 20:00 10/21/20 20:02 Temperature 97.9 F Pulse Rate 83 79 Respiratory Rate 26 H Blood Pressure 115/62 Pu
[2020-10-22 14:41] LABS: Base Excess ABG 4.7 mEq/l (+/-2.0); Fractional Inspired Oxygen 40 %; HCO3 ABG 28.9 mEq/l (22.0-26.0); Oxygen Content ABG 17.2 %vol (16.0-22.0); Oxygen Saturation ABG 94.6 % (95.0-100.0); Oxyhemoglobin 93.2 % THb (90.0-100.0); PCO2 ABG 41.4 mmHg (35.0-45.0); PO2 ABG 68.6 mmHg (80.0-100.0); PO2 FiO2 Ratio Arterial Blood 1.71 %; Total Hemoglobin 13.1 g/dL (12.0-18.0); pH ABG 7.462 (7.350-7.450)
[2020-10-22 14:42] LABS: Arterial Blood Gas Vent Mode SPONTANEOUS; Device VENTILATOR; Modified Allen's Test Pass; Site Drawn RIGHT RADIAL
[2020-10-22 14:43] LABS: Arterial Blood Gas PEEP 5 cmH2O; Arterial Blood Gas Pressure Support 8 cmH2O
[2020-10-22] MEDS: dexmedeTOMIDine 400 MCG/100 ML 400 MCG/100 ML BAG IV CONT (20:03)
[2020-10-22] MEDS: SENNA/DOCUSATE SODIUM TABLET 1 TAB PO (20:06)
[2020-10-23] VITALS (27 sets, daily range): BP systolic 83–116; BP diastolic 58–76; PULSE 60–81; RESP 14–29; TEMP 36.1–36.9; O2SAT 92–100
[2020-10-23] MEDS: IPRATROPIUM BR 0.02% INH SOLN 0.5 MG/2.5 ML VIAL INHALATION ×4 (02:54→20:29)
[2020-10-23] MEDS: ALBUTEROL SULFATE NEB 2.5 MG/0.5 ML INH INHALATION ×4 (02:54→20:28)
[2020-10-23 05:17] LABS: Alveolar/Arterial O2 Gradient 158.8 mmHg; Base Excess ABG 1.2 mEq/l (+/-2.0); Carboxyhemoglobin 0.3 % THb (0-2.0); Device VENTILATOR; Fractional Inspired Oxygen 40 %; HCO3 ABG 24.7 mEq/l (22.0-26.0); Methemoglobin ABG 0.2 %THb (0-1.5); Modified Allen's Test Unable to perform; Oxygen Content ABG 17.1 %vol (16.0-22.0); Oxyhemoglobin 95.2 % THb (90.0-100.0); PCO2 ABG 35.5 mmHg (35.0-45.0); PO2 ABG 85.6 mmHg (80.0-100.0); PO2 FiO2 Ratio Arterial Blood 2.14 %; Reduced Hemoglobin 4.3 %THb (0-5.0); Site Drawn RIGHT RADIAL; Total Hemoglobin 12.7 g/dL (12.0-18.0)
[2020-10-23 05:18] LABS: Arterial Blood Gas Minute Volume 7 LPM; Arterial Blood Gas PEEP 5 cmH2O; Arterial Blood Gas Vent Mode ASV
[2020-10-23 05:46] LABS: Hematocrit 37.8 % (42.0-52.0); Hemoglobin 11.9 g/dL (14.0-18.0); Mean Corpuscular HGB Conc 31.5 g/dl (32-36); Mean Corpuscular Hemoglobin 29.4 pg (26-34); Mean Corpuscular Volume 93.3 fl (80-100); Mean Platelet Volume 9.9 fl (7.4-10.4); Platelet Count Result 591 k/mm3 (150-375); Red Blood Count 4.05 M/mm3 (4.6-6.20); Red Cell Distribution Width 14.8 % (11.5-14.5); White Blood Count 13.5 K/mm3 (4.5-10.0)
[2020-10-23] MEDS: dexmedeTOMIDine 400 MCG/100 ML 400 MCG/100 ML BAG 7.48 MCG IV CONT (05:51)
[2020-10-23] MEDS: CENTRAL LINE FLUSH 10 ML IV PUSH ×3 (05:52→19:32)
[2020-10-23 05:58] LABS: Alanine Aminotransferase 21 U/L (4-50); Albumin Level 3.1 g/dL (3.5-5.1); Alkaline Phosphatase 59 U/L (38-126); Anion Gap 1 mmol/L (8-16); Aspartate Amino Transferase 54 U/L (17-59); Bilirubin,Total 0.6 mg/dL (0.2-1.3); Blood Urea Nitrogen 36 mg/dL (9-20); CRP 1.7 mg/dL (<1.0); Carbon Dioxide 33 mmol/L (22-30); Chloride 102 mmol/L (98-107); Estimated CRCL calculation 66 ml/min; Estimated Glomerular Filt Rate > 60; Glucose 146 mg/dL (75-110); Lactate Dehydrogenase 741 U/L (313-618); Magnesium 1.9 mg/dL (1.6-2.3); Potassium 4.1 mmol/L (3.4-5.0); Sodium 136 mmol/L (137-145)
[2020-10-23 06:01] LABS: D Dimer 3.03 ug/mL (<0.48)
[2020-10-23] MEDS: BUDESONIDE RESPULE NEB 0.5 MG/2 ML AMP 1 MG INHALATION ×2 (07:47→20:28)
[2020-10-23] MEDS: FUROSEMIDE INJ 40 MG/4 ML VIAL 20 MG IV PUSH (08:55)
[2020-10-23] MEDS: ENOXAPARIN 40 MG/0.4 ML SYRINGE SUB-Q ×2 (08:57→19:32)
[2020-10-23] MEDS: polyethylene glycoL 3350 17 GM POWD.PACK PO (08:57)
[2020-10-23] MEDS: PANTOPRAZOLE SODIUM IV 40 MG VIAL IV PUSH (08:58)
[2020-10-23] MEDS: EZETIMIBE 10 MG TABLET PO (08:59)
[2020-10-23] MEDS: FENOFIBRATE NANOCRYSTALLIZED 145 MG TABLET PO (09:00)
[2020-10-23] MEDS: CHOLECALCIFEROL 1,000 UNITS TABLET 5000 UNITS PO (09:00)
[2020-10-23] MEDS: DEXAMETHASONE SOD PHOS INJ 4 MG/ML VIAL 6 MG IV PUSH (09:00)
[2020-10-23] MEDS: ASPIRIN 81 MG ENTERIC TABLET PO (09:00)
[2020-10-23] MEDS: ASCORBIC ACID 500 MG TABLET 1000 MG PO (09:01)
[2020-10-23] MEDS: ZINC SULFATE 220 MG CAPSULE PO (09:02)
--- NOTE | 2020-10-23 09:08 | PM.IMPN ---
Progress Note: A&P Assessment and Plan (1) Acute respiratory failure with hypoxia: Code(s): J96.01 - Acute respiratory failure with hypoxia Status: Acute Assessment and Plan: The patient has been admitted to the ICU for respiratory failure. Initially on HFNC then BiPAP but ultimately required intubation 10/17. Paralytics stopped on 10/20. FiO2 requirement able to be decreased; PEEP down to 5. Patient currently intubated but sedation stopped for planned extubation. Wean vent as tolerated. Continue bronchodilators and treatment of COVID-19 pneumonia with Decadron; he is too far out for Remdesivir or plasma. Appreciate Cooperative Extension Agent input. (2) Pneumonia due to COVID-19 virus: Code(s): U07.1 - COVID-19; J12.82 - Pneumonia due to coronavirus disease 2019 Status: Acute Assessment and Plan: Patient tested positive for COVID on 09/29/20. CTA on admission (10/13) showed no pulmonary emboli but did show extensive patchy ground glass infiltrates scattered throughout both lungs. No cultures ordered here. WBC better today. Current respiratory care as mentioned above. Will continue droplet isolation. Continue Decadron IV (last day is today). Continue bronchodilators. Antibiotics stopped 10/16. Continue supportive care. (3) Hypertension: Qualifiers: Hypertension type: unspecified Qualified Code(s): I10 - Essential (primary) hypertension Code(s): I10 - Essential (primary) hypertension Status: Chronic Assessment and Plan: Patient's blood pressure was reviewed on 10/23 Patient Hypotensive overnight related to the Precedex. Precedex is off now. Still not requiring Levophed. Lisinopril remains on hold. Will continue to follow closely. (4) Hyperlipidemia: Qualifiers: Hyperlipidemia type: unspecified Qualified Code(s): E78.5 - Hyperlipidemia, unspecified Code(s): E78.5 - Hyperlipidemia, unspecified Status: Chronic Assessment and Plan: Stable. Continue fenofibrate and ezetimibe. (5) DVT prophylaxis: Code(s): Z29.9 - Encounter for prophylactic measures, unspecified Status: Acute Assessment and Plan: Lovenox Additional Plan NSVT - Mag level 1.9 and potassium 4.1. Will give Mag IV. Continue tele Subjective Date/time seen: 10/23/20 09:08 Interval history: 70yo male with HTH, HLD and recently tested positive for COVID (09/29/20) here for acute respiratory failure currently intubated since 10/17/20. Patient intubated but awake and alert. He is off sedation currently. He denies CP or abd pain. TF is off. Minimal secretions. He is asking for the ETT to be removed. Precedex added yesterday but stopped due to low BP and plans for extubation. Review of Systems Review of Systems: ROS unobtainable: Yes unobtainable due to endotracheal tube Exam Narrative: Exam Narrative: AF 98.0 100/61 60 19 93% MV Peep 5 on 40% FiO2 Gen -patient intubated HEENT -OG and ETT secured; no further facial edema noted Chest - clear anteriorly, mild crackles in the flanks. CV - RRR S1/S2. Telemetry showing 9 beat run NSVT Abd -soft. NT/ND, +BS -Emmanuel secured draining clear yellow. Ext - No pedal edema Neuro - awake and alert Skin - Warm and dry Objective Data Vital Signs Vital Signs: Vital Signs - 24 hr 10/22/20 10:00 10/22/20 10:22 10/22/20 10:23 Temperature Pulse Rate 87 89 89 Respiratory Rate 24 H 24 H 24 H Blood Pressure 113/61 Pulse Oximetry 96 10/22/20 11:10 10/22/20 12:00 10/22/20 12:13 Temperature 98.7 F Pulse Rate 96 107 H 94 Respiratory Rate 22 H 20 Blood Pressure 135/80 Pulse Oximetry 96 95 10/22/20 12:14 10/22/20 12:40 10/22/20 14:00 Temperature Pulse Rate 97 87 84 Respiratory Rate 20 17 Blood Pressure 142/80 H Pulse Oximetry 97 98 10/22/20 14:04 10/22/20 14:05 10/22/20 14:24 Temperature Pulse Rate 81 81 88 Respiratory Rate 18 18 Blood
[2020-10-23 09:56] LABS: Alveolar/Arterial O2 Gradient 171.5 mmHg; Base Excess ABG 5.2 mEq/l (+/-2.0); Fractional Inspired Oxygen 40 %; HCO3 ABG 29.5 mEq/l (22.0-26.0); Oxygen Saturation ABG 93.6 % (95.0-100.0); Oxyhemoglobin 92.2 % THb (90.0-100.0); PCO2 ABG 42.6 mmHg (35.0-45.0); PO2 ABG 64.7 mmHg (80.0-100.0); PO2 FiO2 Ratio Arterial Blood 1.62 %; Total Hemoglobin 13.1 g/dL (12.0-18.0); pH ABG 7.459 (7.350-7.450)
[2020-10-23 09:57] LABS: Device VENTILATOR; Modified Allen's Test Pass; Site Drawn LEFT RADIAL
[2020-10-23 09:58] LABS: Arterial Blood Gas PEEP 5 cmH2O; Arterial Blood Gas Vent Mode SPONTANEOUS
[2020-10-23 09:59] LABS: Arterial Blood Gas Pressure Support 8 cmH2O
--- NOTE | 2020-10-23 11:10 | WPDINTPN ---
Progress Note: A&P Assessment and Plan (1) Acute respiratory failure with hypoxia: Code(s): J96.01 - Acute respiratory failure with hypoxia Status: Acute Assessment and Plan: Acute respiratory failure likely related to COVID-19 pneumonia and/or bacterial pneumonia. Intubated on 10/17/2020 -patient has been on ASV mode of ventilation through the night, 40% FiO2, peep of 5 -chest x-ray and ABGs reviewed this morning -continue Pulmicort -continue bronchodilators -patient on Precedex infusion, -patient was placed on SBT, did well, ABGs post SBT looked good, patient was successfully extubated, currently on 2 L nasal cannula with good O2 sats -will have RT encourage incentive spirometry -PT/OT in a.m. -up in chair when able (2) Pneumonia due to COVID-19 virus: Code(s): U07.1 - COVID-19; J12.82 - Pneumonia due to coronavirus disease 2018 Status: Acute Assessment and Plan: SARS-CoV-2 PCR 09/29/2020 and had symptoms days for that -patient was not a candidate for Remdesivir as he was out of the window period. -continue dexamethasone, initiated on 10/13/2020 -inflammatory markers trending down, will continue to trend (3) Hyperlipidemia: Qualifiers: Hyperlipidemia type: unspecified Qualified Code(s): E78.5 - Hyperlipidemia, unspecified Code(s): E78.5 - Hyperlipidemia, unspecified Status: Chronic Assessment and Plan: Continue Fenofibrate and ezetimibe (4) Hypertension: Qualifiers: Hypertension type: unspecified Qualified Code(s): I10 - Essential (primary) hypertension Code(s): I10 - Essential (primary) hypertension Status: Chronic Assessment and Plan: Blood pressures have been stable, will hold lisinopril (5) DVT prophylaxis: Code(s): Z29.9 - Encounter for prophylactic measures, unspecified Status: Acute Assessment and Plan: DVT prophylaxis: Lovenox 40 mg subcutaneously Q12H Additional Plan Discussed with patient's Beth and updated her with patient's condition and plan of care. She is aware that patient has been extubated Code status: Full code Critical care time spent: 33 minutes This dictation may have been done utilizing a voice recognition system. Attempts have been made to correct errors. However, there may be uncorrected grammatical, spelling, and recognition errors present. Due to a high probability of clinically significant, life threatening deterioration, the patient required my highest level of preparedness to intervene emergently and I personally spent this critical care time directly and personally managing the patient. This critical care time included obtaining a history; examining the patient; pulse oximetry; ordering and review of studies; arranging urgent treatment with development of a management plan; evaluation of patient's response to treatment; frequent reassessment; and discussions with other providers. It was exclusive of separately billable procedures and treating other patients and teaching time. Please see Assessment and Plan section and the rest of the note for further information on patient assessment and treatment Subjective Date/time seen: 10/23/20 11:10 Interval history: 70 yo male with HTH, HLD and recently tested positive for COVID (09/29/20) here for acute respiratory failure currently intubated since 10/17/20. 10/23/2020: Patient is on Precedex infusion, awake, alert, follows simple commands. Patient has been placed on SBT, tube feeds her off. Patient did diurese well in the last 24 hours. Has been on ASV mode of ventilation through the night. Hemodynamically stable Review of Systems Review of Systems: ROS unobtainable: Yes unobtainable due to endotracheal tube, unobtainable due to medical condition and unobtainable due to mental status Exam Const: General: comfortable and no acute distress Nutritional Appearance: obese Orientation/consciousness: o
[2020-10-23] MEDS: MAGNESIUM SULF 2 GM/WATER 50ML 2 GM/50 ML BAG IVPB (12:51)
--- NOTE | 2020-10-23 15:26 | PCRCNOTE ---
Smoking cessation papers taken to pt. Pt states he doesn't smoke he had quit in 1976.
[2020-10-24] VITALS (20 sets, daily range): BP systolic 96–124; BP diastolic 62–78; PULSE 70–99; RESP 16–28; TEMP 35.9–36.9; O2SAT 95–100
[2020-10-24] MEDS: ALBUTEROL SULFATE NEB 2.5 MG/0.5 ML INH INHALATION ×4 (02:18→20:04)
[2020-10-24] MEDS: IPRATROPIUM BR 0.02% INH SOLN 0.5 MG/2.5 ML VIAL INHALATION ×4 (02:19→20:03)
[2020-10-24] MEDS: CENTRAL LINE FLUSH 10 ML IV PUSH ×3 (05:24→21:25)
[2020-10-24 05:38] LABS: Hematocrit 40.8 % (42.0-52.0); Hemoglobin 12.8 g/dL (14.0-18.0); Mean Corpuscular HGB Conc 31.4 g/dl (32-36); Mean Corpuscular Hemoglobin 29.9 pg (26-34); Mean Corpuscular Volume 95.3 fl (80-100); Mean Platelet Volume 9.7 fl (7.4-10.4); Platelet Count Result 590 k/mm3 (150-375); Red Blood Count 4.28 M/mm3 (4.6-6.20); Red Cell Distribution Width 14.6 % (11.5-14.5); White Blood Count 15.1 K/mm3 (4.5-10.0)
[2020-10-24 07:41] LABS: Alanine Aminotransferase 21 U/L (4-50); Albumin Level 3.1 g/dL (3.5-5.1); Alkaline Phosphatase 55 U/L (38-126); Anion Gap 0 mmol/L (8-16); Aspartate Amino Transferase 50 U/L (17-59); Bilirubin,Total 0.7 mg/dL (0.2-1.3); Blood Urea Nitrogen 41 mg/dL (9-20); Calcium 9.5 mg/dL (8.4-10.2); Carbon Dioxide 34 mmol/L (22-30); Chloride 103 mmol/L (98-107); Estimated CRCL calculation 68 ml/min; Estimated Glomerular Filt Rate > 60; Glucose 86 mg/dL (75-110); Magnesium 2.2 mg/dL (1.6-2.3); Potassium 4.1 mmol/L (3.4-5.0); Sodium 137 mmol/L (137-145)
[2020-10-24] MEDS: BUDESONIDE RESPULE NEB 0.5 MG/2 ML AMP 1 MG INHALATION ×2 (07:56→20:03)
[2020-10-24] MEDS: CHOLECALCIFEROL 1,000 UNITS TABLET 5000 UNITS PO (08:15)
[2020-10-24] MEDS: ENOXAPARIN 40 MG/0.4 ML SYRINGE SUB-Q ×2 (08:15→21:25)
[2020-10-24] MEDS: ASCORBIC ACID 500 MG TABLET 1000 MG PO (08:16)
[2020-10-24] MEDS: EZETIMIBE 10 MG TABLET PO (08:16)
[2020-10-24] MEDS: PANTOPRAZOLE SODIUM IV 40 MG VIAL IV PUSH (08:16)
[2020-10-24] MEDS: ZINC SULFATE 220 MG CAPSULE PO (08:16)
[2020-10-24] MEDS: FENOFIBRATE NANOCRYSTALLIZED 145 MG TABLET PO (08:17)
[2020-10-24] MEDS: ASPIRIN 81 MG ENTERIC TABLET PO (08:17)
--- NOTE | 2020-10-24 08:38 | WPDINTPN ---
Progress Note: A&P Assessment and Plan (1) Acute respiratory failure with hypoxia: Code(s): J96.01 - Acute respiratory failure with hypoxia Status: Acute Assessment and Plan: Acute respiratory failure likely related to COVID-19 pneumonia and/or bacterial pneumonia. Intubated on 10/17/2020 -extubated 10/23/2020 -chest x-ray 10/24 shows extensive bilateral infiltrates increased since 10/23/2020. -will diurese again today -continue Pulmicort -continue bronchodilators -PT/OT has been ordered (2) Pneumonia due to COVID-19 virus: Code(s): U07.1 - COVID-19; J12.82 - Pneumonia due to coronavirus disease 2019 Status: Acute Assessment and Plan: SARS-CoV-2 PCR 09/29/2020 and had symptoms days for that -patient was not a candidate for Remdesivir as he was out of the window period. - status post dexamethasone, initiated on 10/13/2020 -inflammatory markers trending down, (3) Hyperlipidemia: Qualifiers: Hyperlipidemia type: unspecified Qualified Code(s): E78.5 - Hyperlipidemia, unspecified Code(s): E78.5 - Hyperlipidemia, unspecified Status: Chronic Assessment and Plan: Continue Fenofibrate and ezetimibe (4) Hypertension: Qualifiers: Hypertension type: unspecified Qualified Code(s): I10 - Essential (primary) hypertension Code(s): I10 - Essential (primary) hypertension Status: Chronic Assessment and Plan: Blood pressures have been stable, will hold lisinopril (5) DVT prophylaxis: Code(s): Z29.9 - Encounter for prophylactic measures, unspecified Status: Acute Assessment and Plan: DVT prophylaxis: Lovenox 40 mg subcutaneously Q12H Additional Plan Discussed with patient's Beth and updated her with patient's condition and plan of care. She is aware that patient has been extubated Code status: Full code Critical care time spent: 32 minutes D/w Dr. Baeza, will give Lasix evaluate till this afternoon and if patient is okay will transfer the patient This dictation may have been done utilizing a voice recognition system. Attempts have been made to correct errors. However, there may be uncorrected grammatical, spelling, and recognition errors present. Due to a high probability of clinically significant, life threatening deterioration, the patient required my highest level of preparedness to intervene emergently and I personally spent this critical care time directly and personally managing the patient. This critical care time included obtaining a history; examining the patient; pulse oximetry; ordering and review of studies; arranging urgent treatment with development of a management plan; evaluation of patient's response to treatment; frequent reassessment; and discussions with other providers. It was exclusive of separately billable procedures and treating other patients and teaching time. Please see Assessment and Plan section and the rest of the note for further information on patient assessment and treatment Subjective Date/time seen: 10/24/20 08:38 Interval history: 70 yo male with HTH, HLD and recently tested positive for COVID (09/29/20) here for acute respiratory failure currently intubated since 10/17/20. 10/23/2020: Extubated 10/23/2020: Patient was extubated yesterday, is currently on 2 L nasal cannula, awake, alert, answers to questions appropriately and follows commands. Urine output has been adequate. Patient is afebrile, hemodynamically stable Review of Systems Review of Systems: All systems reviewed & are unremarkable except as noted in HPI and below Exam Const: General: comfortable and no acute distress Nutritional Appearance: obese Orientation/consciousness: oriented to person, oriented to place, oriented to time and patient oriented x3 Limitations: no limitations HENMT: Head: normal to inspection, normocephalic and atraumatic Mouth: Yes moist mucous membranes Eyes:
--- NOTE | 2020-10-24 08:56 | PM.IMPN ---
Progress Note: A&P Assessment and Plan (1) Acute respiratory failure with hypoxia: Code(s): J96.01 - Acute respiratory failure with hypoxia Status: Acute Assessment and Plan: The patient has been admitted to the ICU for respiratory failure. Initially on HFNC then BiPAP but ultimately required intubation 10/17. Paralytics stopped on 10/20. Vent weaned off 10/23/20. Continue bronchodilators. Appreciate Movement Education Specialist input. (2) Pneumonia due to COVID-19 virus: Code(s): U07.1 - COVID-19; J12.82 - Pneumonia due to coronavirus disease 2019 Status: Acute Assessment and Plan: Patient tested positive for COVID on 09/29/20. CTA on admission (10/13) showed no pulmonary emboli but did show extensive patchy ground glass infiltrates scattered throughout both lungs. No cultures ordered here. Started on Decadron but he was too far out for Remdesivir or plasma. Antibiotics stopped 10/16. WBC about the same but may improve now that he is off the Decadron. Decadron completed 10/23/20. Continue current respiratory care as mentioned above. Will continue droplet isolation. Continue bronchodilators. Continue supportive care. (3) Hypertension: Qualifiers: Hypertension type: unspecified Qualified Code(s): I10 - Essential (primary) hypertension Code(s): I10 - Essential (primary) hypertension Status: Chronic Assessment and Plan: Patient's blood pressure was reviewed on 10/24 Patient's BP better controlled now since being off Precedex. He has tolerated lasix 20 IV daily past 2 days. Lisinopril remains on hold. Will continue to follow closely. (4) Hyperlipidemia: Qualifiers: Hyperlipidemia type: unspecified Qualified Code(s): E78.5 - Hyperlipidemia, unspecified Code(s): E78.5 - Hyperlipidemia, unspecified Status: Chronic Assessment and Plan: Stable. Continue fenofibrate and ezetimibe. (5) DVT prophylaxis: Code(s): Z29.9 - Encounter for prophylactic measures, unspecified Status: Acute Assessment and Plan: Lovenox Subjective Date/time seen: 10/24/20 08:56 Interval history: 70yo male with HTH, HLD and recently tested positive for COVID (09/29/20) here for acute respiratory failure currently intubated since 10/17/20. Pateint extubated 10/23/20 Patient extubated yesterday. He feels well. He is hungry. Denies CP and does not feel SOB at rest. Minimal cough. Exam Narrative: Exam Narrative: AF 96.7 117/73 77 24 98% 3L Gen - NARD Chest - inspiratory faint crackles mid and lower lung ross. no conversational dyspnea. Nml RR at the time of my exam CV - RRR S1/S2. Telemetry showing no significnat dysrhythmias Abd -soft. NT/ND, +BS -Emmanuel secured draining clear yellow. Ext - No pedal edema Neuro - awake and alert Skin - Warm and dry Objective Data Vital Signs Vital Signs: Vital Signs - 24 hr 10/23/20 10:00 10/23/20 10:23 10/23/20 10:25 Temperature 98.0 F Pulse Rate 68 66 68 Respiratory Rate 22 H 24 H Blood Pressure 102/65 Pulse Oximetry 95 96 96 10/23/20 12:00 10/23/20 13:49 10/23/20 14:00 Temperature 97.2 F L 97.1 F L Pulse Rate 75 75 72 Respiratory Rate 22 H 20 29 H Blood Pressure 116/62 110/64 Pulse Oximetry 97 94 10/23/20 16:00 10/23/20 18:00 10/23/20 19:15 Temperature 97.3 F L 97.5 F L 97 F L Pulse Rate 79 69 73 Respiratory Rate 14 16 25 H Blood Pressure 116/74 116/73 108/76 Pulse Oximetry 98 96 95 10/23/20 19:29 10/23/20 20:00 10/23/20 20:29 Temperature Pulse Rate 68 72 Respiratory Rate 23 H Blood Pressure Pulse Oximetry 92 10/23/20 20:38 10/23/20 22:00 10/24/20 00:00 Temperature 97.1 F L Pulse Rate 79 78 96 Respiratory Rate 23 H 26 H 24 H Blood Pressure 104/64 96/62 L Pulse Oximetry 100 95 10/24/20 01:52 10/24/20 02:19 10/24/20 02:28 Temperature Pulse Rate 77 73 76 Respiratory Rate 20 22 H 24 H Blood Pressure 109/68 Puls
[2020-10-24] MEDS: FUROSEMIDE INJ 40 MG/4 ML VIAL 20 MG IV PUSH (10:51)
--- NOTE | 2020-10-24 13:27 | PCPTNOTE ---
per nurse, requested therapy wait at least 30 minutes due to fatigue from OT. Will attempt PT later this afternoon if time available.
[2020-10-25] VITALS (22 sets, daily range): BP systolic 100–122; BP diastolic 64–74; PULSE 78–99; RESP 19–27; TEMP 36.2–37.1; O2SAT 90–100
[2020-10-25] MEDS: ALBUTEROL SULFATE NEB 2.5 MG/0.5 ML INH INHALATION ×4 (01:26→20:29)
[2020-10-25] MEDS: IPRATROPIUM BR 0.02% INH SOLN 0.5 MG/2.5 ML VIAL INHALATION ×4 (01:27→20:29)
[2020-10-25] MEDS: CENTRAL LINE FLUSH 10 ML IV PUSH ×3 (05:37→19:54)
[2020-10-25 05:49] LABS: Hematocrit 42.2 % (42.0-52.0); Hemoglobin 13.3 g/dL (14.0-18.0); Mean Corpuscular HGB Conc 31.5 g/dl (32-36); Mean Corpuscular Hemoglobin 29.9 pg (26-34); Mean Corpuscular Volume 94.8 fl (80-100); Mean Platelet Volume 9.8 fl (7.4-10.4); Platelet Count Result 551 k/mm3 (150-375); Red Blood Count 4.45 M/mm3 (4.6-6.20); Red Cell Distribution Width 14.6 % (11.5-14.5); White Blood Count 13.1 K/mm3 (4.5-10.0)
[2020-10-25 05:58] LABS: Anion Gap 3 mmol/L (8-16); Blood Urea Nitrogen 43 mg/dL (9-20); Calcium 9.6 mg/dL (8.4-10.2); Carbon Dioxide 34 mmol/L (22-30); Chloride 102 mmol/L (98-107); Estimated CRCL calculation 67 ml/min; Estimated Glomerular Filt Rate > 60; Glucose 105 mg/dL (75-110); Potassium 3.9 mmol/L (3.4-5.0); Sodium 139 mmol/L (137-145)
[2020-10-25] MEDS: BUDESONIDE RESPULE NEB 0.5 MG/2 ML AMP 1 MG INHALATION ×2 (08:00→20:30)
--- NOTE | 2020-10-25 08:26 | WPDINTPN ---
Progress Note: A&P Assessment and Plan (1) Acute respiratory failure with hypoxia: Code(s): J96.01 - Acute respiratory failure with hypoxia Status: Acute Assessment and Plan: Acute respiratory failure likely related to COVID-19 pneumonia and/or bacterial pneumonia. Intubated on 10/17/2020 -extubated 10/23/2020 -chest x-ray 10/24 shows extensive bilateral infiltrates increased since 10/23/2020. -will diurese again today -continue Pulmicort -continue bronchodilators -PT/OT has been ordered (2) Pneumonia due to COVID-19 virus: Code(s): U07.1 - COVID-19; J12.82 - Pneumonia due to coronavirus disease 2019 Status: Acute Assessment and Plan: SARS-CoV-2 PCR 09/29/2020 and had symptoms days for that -patient was not a candidate for Remdesivir as he was out of the window period. - status post dexamethasone, initiated on 10/13/2020 -inflammatory markers trending down, (3) Hyperlipidemia: Qualifiers: Hyperlipidemia type: unspecified Qualified Code(s): E78.5 - Hyperlipidemia, unspecified Code(s): E78.5 - Hyperlipidemia, unspecified Status: Chronic Assessment and Plan: Continue Fenofibrate and ezetimibe (4) Hypertension: Qualifiers: Hypertension type: unspecified Qualified Code(s): I10 - Essential (primary) hypertension Code(s): I10 - Essential (primary) hypertension Status: Chronic Assessment and Plan: Blood pressures have been stable, will hold lisinopril (5) DVT prophylaxis: Code(s): Z29.9 - Encounter for prophylactic measures, unspecified Status: Acute Assessment and Plan: DVT prophylaxis: Lovenox 40 mg subcutaneously Q12H Additional Plan Discussed with patient's Beth and updated her with patient's condition and plan of care. Code status: Full code Critical care time spent: 31 minutes D/w Dr. Baeza, patient is okay for transfer to [facility] This dictation may have been done utilizing a voice recognition system. Attempts have been made to correct errors. However, there may be uncorrected grammatical, spelling, and recognition errors present. Due to a high probability of clinically significant, life threatening deterioration, the patient required my highest level of preparedness to intervene emergently and I personally spent this critical care time directly and personally managing the patient. This critical care time included obtaining a history; examining the patient; pulse oximetry; ordering and review of studies; arranging urgent treatment with development of a management plan; evaluation of patient's response to treatment; frequent reassessment; and discussions with other providers. It was exclusive of separately billable procedures and treating other patients and teaching time. Please see Assessment and Plan section and the rest of the note for further information on patient assessment and treatment Subjective Date/time seen: 10/25/20 08:26 Interval history: 70 yo male with HTH, HLD and recently tested positive for COVID (09/29/20) here for acute respiratory failure currently intubated since 10/17/20. 10/23/2020: Extubated 10/25/2020: Patient seen and examined the ICU, remains on 1 L nasal cannula, O2 sats have been between 94-100%. Urine output has been adequate in response to diuretics. Patient is afebrile, hemodynamically stable. Working with physical and occupational therapy. Tolerating diet Review of Systems Review of Systems: All systems reviewed & are unremarkable except as noted in HPI and below Exam Const: General: comfortable and no acute distress Nutritional Appearance: obese Orientation/consciousness: oriented to person, oriented to place, oriented to time and patient oriented x3 Limitations: no limitations HENMT: Head: normal to inspection, normocephalic and atraumatic Mouth: Yes moist mucous membranes Other: ETT in place Eyes: General: appearance deepak
--- NOTE | 2020-10-25 08:28 | PM.IMPN ---
Progress Note: A&P Assessment and Plan (1) Acute respiratory failure with hypoxia: Code(s): J96.01 - Acute respiratory failure with hypoxia Status: Acute Assessment and Plan: The patient has been admitted to the ICU for respiratory failure. Initially on HFNC then BiPAP but ultimately required intubation 10/17. Paralytics stopped on 10/20. Vent weaned off 10/23/20. Continue bronchodilators. Appreciate Client Support Consultant input. (2) Pneumonia due to COVID-19 virus: Code(s): U07.1 - COVID-19; J12.82 - Pneumonia due to coronavirus disease 2019 Status: Acute Assessment and Plan: Patient tested positive for COVID on 09/29/20. CTA on admission (10/13) showed no pulmonary emboli but did show extensive patchy ground glass infiltrates scattered throughout both lungs. No cultures ordered here. Started on Decadron but he was too far out for Remdesivir or plasma. Antibiotics stopped 10/16. WBC better now that he is off the Decadron. Decadron completed 10/23/20. Continue current respiratory care as mentioned above. Will continue droplet isolation. Continue bronchodilators. Continue supportive care. Repeat Lasix. (3) Hypertension: Qualifiers: Hypertension type: unspecified Qualified Code(s): I10 - Essential (primary) hypertension Code(s): I10 - Essential (primary) hypertension Status: Chronic Assessment and Plan: Patient's blood pressure was reviewed on 10/25 Patient's BP remains well controlled. He has tolerated intermittent lasix dosing. Lisinopril remains on hold. Will continue to follow closely. (4) Hyperlipidemia: Qualifiers: Hyperlipidemia type: unspecified Qualified Code(s): E78.5 - Hyperlipidemia, unspecified Code(s): E78.5 - Hyperlipidemia, unspecified Status: Chronic Assessment and Plan: Stable. Continue fenofibrate and ezetimibe. (5) DVT prophylaxis: Code(s): Z29.9 - Encounter for prophylactic measures, unspecified Status: Acute Assessment and Plan: Lovenox Subjective Date/time seen: 10/25/20 08:28 Interval history: 70yo male with HTH, HLD and recently tested positive for COVID (09/29/20) here for acute respiratory failure currently intubated since 10/17/20. Pateint extubated 10/23/20 No CO. No issues overnight. Eating well. Walking to the door with therapy yesterday. Minimal GROSS but needed higher O2 with exertion. Exam Narrative: Exam Narrative: AF 98.7 103/70 96 23 95% 1L Gen - NARD Chest - inspiratory bibasilar crackles mid and lower lung ross. no conversational dyspnea. Nml RR CV - RRR S1/S2. Telemetry showing no significant dysrhythmias Abd -soft. NT/ND, +BS -Emmanuel secured draining clear yellow. Ext - No pedal edema Neuro - awake and alert Skin - Warm and dry Objective Data Vital Signs Vital Signs: Vital Signs - 24 hr 10/24/20 10:00 10/24/20 12:00 10/24/20 14:00 Temperature 97.5 F L 97.9 F 97.6 F Pulse Rate 88 98 90 Respiratory Rate 25 H 21 H 16 Blood Pressure 117/69 121/71 98/71 L Pulse Oximetry 100 98 98 10/24/20 14:19 10/24/20 16:00 10/24/20 18:00 Temperature 98.2 F 97.9 F Pulse Rate 99 91 92 Respiratory Rate 20 28 H 27 H Blood Pressure 103/73 116/73 Pulse Oximetry 100 100 10/24/20 20:00 10/24/20 20:05 10/24/20 20:07 Temperature 98.4 F Pulse Rate 85 91 Respiratory Rate 22 H 23 H Blood Pressure 118/75 Pulse Oximetry 100 100 10/24/20 20:25 10/24/20 22:00 10/25/20 00:00 Temperature Pulse Rate 98 81 78 Respiratory Rate 22 H 23 H 25 H Blood Pressure 124/78 122/74 Pulse Oximetry 100 98 10/25/20 01:28 10/25/20 01:38 10/25/20 02:00 Temperature Pulse Rate 80 86 90 Respiratory Rate 19 26 H 25 H Blood Pressure 119/67 Pulse Oximetry 100 10/25/20 04:00 10/25/20 06:00 10/25/20 08:00 Temperature 98.7 F Pulse Rate 84 84 84 Respiratory Rate 27 H 26 H Blood Pressure 111/66 103/70 Pulse Oximetry 98 96
--- NOTE | 2020-10-25 10:26 | PCDIET ---
Nutrition Follow-Up Complete: Inadequate oral intake related to oral intubation as evidenced by NPO status. Patient to meet estimated nutritional needs. Goal: Progressing towards goal. Continue goal. Pt current nutrition is Heart Healthy + Enlive once a day Nutrition recommendation: agree Last recorded weight is 99 kg, down from 111.4kg on admit Bowel Motility: 10/23 last BM; pt on motility agents Labs Reviewed: WBC 13.1, Hgb 13.3, BUN 43 Meds Noted: Vitamin C, Zinc, Vitamin D, Senna, Zofran, Protonix, Miralax, Albuterol Additional Notes: Pt is alert and oriented. He has been eating PO. Last intake was 25% Sunday, Previous intakes of 50% on Sunday. Weight down. He states his appetite is better. He likes strawberry enlive so we will provide that at lunch for an additional 350 kcals. If poor intake and wt loss continues, recommend liberalizing diet to 4gm Na. We will continue to follow every three days.
[2020-10-25] MEDS: PANTOPRAZOLE SODIUM IV 40 MG VIAL IV PUSH (10:37)
[2020-10-25] MEDS: FUROSEMIDE INJ 40 MG/4 ML VIAL 20 MG IV PUSH (10:37)
[2020-10-25] MEDS: CHOLECALCIFEROL 1,000 UNITS TABLET 5000 UNITS PO (10:38)
[2020-10-25] MEDS: ZINC SULFATE 220 MG CAPSULE PO (10:38)
[2020-10-25] MEDS: ASPIRIN 81 MG ENTERIC TABLET PO (10:39)
[2020-10-25] MEDS: ASCORBIC ACID 500 MG TABLET 1000 MG PO (10:39)
[2020-10-25] MEDS: ENOXAPARIN 40 MG/0.4 ML SYRINGE SUB-Q ×2 (10:39→19:53)
[2020-10-25] MEDS: FENOFIBRATE NANOCRYSTALLIZED 145 MG TABLET PO (10:40)
[2020-10-25] MEDS: EZETIMIBE 10 MG TABLET PO (10:40)
--- NOTE | 2020-10-25 17:19 | PC.NURSE ---
This patient, Kimani Hinds, was received from ICU 2 on 10/25/20 at 1719. Patient/family oriented to unit policies and routines.
[2020-10-26] VITALS (23 sets, daily range): BP systolic 95–123; BP diastolic 53–75; PULSE 84–112; RESP 18–24; TEMP 36.5–36.8; O2SAT 86–99
[2020-10-26] MEDS: IPRATROPIUM BR 0.02% INH SOLN 0.5 MG/2.5 ML VIAL INHALATION ×3 (02:04→14:05)
[2020-10-26] MEDS: ALBUTEROL SULFATE NEB 2.5 MG/0.5 ML INH INHALATION ×3 (02:04→14:05)
[2020-10-26 06:04] LABS: Hematocrit 39.1 % (42.0-52.0); Hemoglobin 12.4 g/dL (14.0-18.0); Mean Corpuscular HGB Conc 31.7 g/dl (32-36); Mean Corpuscular Hemoglobin 29.4 pg (26-34); Mean Corpuscular Volume 92.7 fl (80-100); Mean Platelet Volume 10.1 fl (7.4-10.4); Platelet Count Result 511 k/mm3 (150-375); Red Blood Count 4.22 M/mm3 (4.6-6.20); Red Cell Distribution Width 14.6 % (11.5-14.5); White Blood Count 12.3 K/mm3 (4.5-10.0)
[2020-10-26 06:15] LABS: Anion Gap 2 mmol/L (8-16); Blood Urea Nitrogen 43 mg/dL (9-20); Calcium 9.5 mg/dL (8.4-10.2); Carbon Dioxide 34 mmol/L (22-30); Chloride 102 mmol/L (98-107); Estimated CRCL calculation 61 ml/min; Estimated Glomerular Filt Rate > 60; Glucose 113 mg/dL (75-110); Potassium 3.9 mmol/L (3.4-5.0); Sodium 138 mmol/L (137-145)
[2020-10-26] MEDS: ENOXAPARIN 40 MG/0.4 ML SYRINGE SUB-Q (08:51)
[2020-10-26] MEDS: CHOLECALCIFEROL 1,000 UNITS TABLET 5000 UNITS PO (08:51)
[2020-10-26] MEDS: FENOFIBRATE NANOCRYSTALLIZED 145 MG TABLET PO (08:52)
[2020-10-26] MEDS: ZINC SULFATE 220 MG CAPSULE PO (08:52)
[2020-10-26] MEDS: EZETIMIBE 10 MG TABLET PO (08:52)
[2020-10-26] MEDS: ASPIRIN 81 MG ENTERIC TABLET PO (08:52)
[2020-10-26] MEDS: PANTOPRAZOLE SODIUM IV 40 MG VIAL IV PUSH (08:53)
[2020-10-26] MEDS: ASCORBIC ACID 500 MG TABLET 1000 MG PO (08:53)
[2020-10-26] MEDS: CENTRAL LINE FLUSH 10 ML IV PUSH (08:55)
[2020-10-26] MEDS: BUDESONIDE RESPULE NEB 0.5 MG/2 ML AMP 1 MG INHALATION ×2 (09:11→09:15)
--- NOTE | 2020-10-26 15:40 | HOMEO2EVAL ---
Evaluation was performed at [facility] Home Oxygen Evaluation RC: Home Oxygen (O2) Evaluation Start: 10/26/20 11:43 Freq: ONCE Status: Active Protocol: RPE Activity Type Activity Date Activity User E-Sign Co-Sign Detail Recorded Client Recorded Date Recorded By Document 10/26/20 15:00 JAMES [email or web address] 10/26/20 15:40 JAMES Document 10/26/20 15:02 JAMES [email or web address] 10/26/20 15:40 JAMES Document 10/26/20 15:03 JAMES [email or web address] 10/26/20 15:40 JAMES Document 10/26/20 15:05 JAMES [email or web address] 10/26/20 15:40 JAMES Document 10/26/20 15:08 JAMES [email or web address] 10/26/20 15:40 JAMES Document 10/26/20 15:10 JAMES [email or web address] 10/26/20 15:40 JAMES Document 10/26/20 15:15 JAMES [email or web address] 10/26/20 15:40 JAMES 10/26/20 10/26/20 10/26/20 15:00 15:02 15:03 Home O2 Evaluation Test Phase Resting Resting Resting Oxygen Delivery Room Air Nasal Cannula Nasal Cannula Oxygen Flow Rate (L/min) 1 2 Pulse Oximetry (90-100 %) 86 L 87 L 92 Pulse Rate (60-100 beats/min) 92 Home Oxygen Evaluation Comments Treatment Charges O2 Evaluation - Inpatient 10/26/20 10/26/20 10/26/20 15:05 15:08 15:10 Home O2 Evaluation Test Phase Exercise Exercise Exercise Oxygen Delivery Nasal Cannula Nasal Cannula Nasal Cannula Oxygen Flow Rate (L/min) 2 3 4 Pulse Oximetry (90-100 %) 87 L 87 L 90 Pulse Rate (60-100 beats/min) 110 H 112 H Home Oxygen Evaluation Comments Treatment Charges 10/26/20 15:15 Home O2 Evaluation Test Phase Resting Oxygen Delivery Nasal Cannula Oxygen Flow Rate (L/min) 2 Pulse Oximetry (90-100 %) 94 Pulse Rate (60-100 beats/min) 94 Home Oxygen Evaluation Comments PT REQUIRES 2 L AT REST AND 4 L WITH EXERTION Treatment Charges
--- NOTE | 2020-10-26 15:41 | PCRCNOTE ---
HOME O2 EVAL DONE, PT REQUIRES 2 L RESTING AND 4L EXERTION. [facility] UP WITH [facility]ONE # [phone]. REP IS IN ROUTE TO DROP OFF TRANSPORT TANK FOR DISCHARGE HOME NOW. RN AWARE.
--- NOTE | 2020-10-26 16:10 | PM.DS ---
DS: Admitting Diagnosis Admitting Diagnosis Admitting Diagnosis: Chief Complaint: Shortness of breath++ DS: Discharge Diagnosis Discharge Diagnosis (1) Acute respiratory failure with hypoxia: Code(s): J96.01 - Acute respiratory failure with hypoxia Status: Acute Assessment and Plan: The patient has been admitted to the ICU for respiratory failure. Initially on HFNC then BiPAP but ultimately required intubation 10/17. Paralytics stopped on 10/20. Vent weaned off 10/23/20. Continue bronchodilators. Appreciate [employer] input. (2) Pneumonia due to COVID-19 virus: Code(s): U07.1 - COVID-19; J12.82 - Pneumonia due to coronavirus disease 2019 Status: Acute Assessment and Plan: Patient tested positive for COVID on 09/29/20. CTA on admission (10/13) showed no pulmonary emboli but did show extensive patchy ground glass infiltrates scattered throughout both lungs. No cultures ordered here. Started on Decadron but he was too far out for Remdesivir or plasma. Antibiotics stopped 10/16. WBC better now that he is off the Decadron. Decadron completed 10/23/20. Continue current respiratory care as mentioned above. Will continue droplet isolation. Continue bronchodilators. Continue supportive care. Repeat Lasix. (3) Hypertension: Qualifiers: Hypertension type: unspecified Qualified Code(s): I10 - Essential (primary) hypertension Code(s): I10 - Essential (primary) hypertension Status: Chronic Assessment and Plan: Patient's blood pressure was reviewed on 10/25 Patient's BP remains well controlled. He has tolerated intermittent lasix dosing. Lisinopril remains on hold. Will continue to follow closely. (4) Hyperlipidemia: Qualifiers: Hyperlipidemia type: unspecified Qualified Code(s): E78.5 - Hyperlipidemia, unspecified Code(s): E78.5 - Hyperlipidemia, unspecified Status: Chronic Assessment and Plan: Stable. Continue fenofibrate and ezetimibe. DS: Summary Hospital Course Reason for hospitalization: Chief Complaint: Shortness of breath++ Narrative: This is a pleasant 70 year old male with known history of a previous arrhythmia s/p pacemaker, HTN, and hyperlipidemia who presented to the hospital with a complaint of increased shortness of breath, poorly productive hacking cough, and body aches. The patient tested positive for COVID-19 on September 29 and believes that since then he has only gotten worse. He reports that his son originally contracted COVID-19 and spread it to him and his . The patient denies any chest pain, nausea, vomiting, abdominal pain, dysuria, hematuria, or rectal bleeding. He did have diarrhea although this has subsided. He has had sporadic fever but not for the past few days. He was evaluated in the ER today and CXR demonstrated diffuse bilateral lung disease. CTA was performed which showed extensive patchy groundglass infiltrates scattered throughout both lungs. The patient was treated with IV antibiotics and decadron IV. On my encounter with the patient tonight he is comfortable on high flow oxygen and does have a nonproductive cough. He states he feels somewhat better since being admitted today. No other complaints at this time. Hospital Course: Patient tested positive for COVID on 09/29/20. CTA on admission (10/13) showed no pulmonary emboli but did show extensive patchy ground glass infiltrates scattered throughout both lungs. No cultures ordered here. Started on Decadron but he was too far out for Remdesivir or plasma. Antibiotics stopped 10/16. WBC better now that he is off the Decadron. Decadron completed 10/23/20. Continue current respiratory care as mentioned above. Will continue droplet isolation. Continue bronchodilators. Continue supportive care. Repeat Lasix. today patient is clinically stable, home o2 was showed patient needs 1-2 L oxygen at rest and 4 L of oxygen with exertion, will give patient n
--- NOTE | 2020-10-26 16:28 | PCRCNOTE ---
PUT IN NEB SET UP ORDER WITH MEDS AND FREQUENCY AND FAXED TO P. UNABLE TO CONTACT ANYONE AT OFFICE OR REP AT THIS TIME. LEFT MESSAGE TO CONTACT PT MICHAEL, HE IS EXPECTING A NEB SET UP AND INSTRUCT.
== END 2020-10-26 18:30 | disposition home or self-care (01) | DRG 207 ==
LOC: ANHED 17:05 → ANHICU 10-14 08:05 → ANHIMU 10-26 16:08 → ANHICU 10-29 11:24 → ANHIMU 10-29 11:24
PROVIDERS: Family Medicine; Internal Medicine; Internal Medicine Critical Care Medicine; Admitting Provider Hospitalist; Emergency Provider Emergency Medicine; PCP Physician Assistant; Visit Provider Internal Medicine
DX: U07.1 COVID-19 (principal); J12.82 Pneumonia due to coronavirus disease 2019; J96.01 Acute respiratory failure with hypoxia; I10 Essential (primary) hypertension; E78.5 Hyperlipidemia, unspecified; Z79.82 Long term (current) use of aspirin; Z79.899 Other long term (current) drug therapy; Z87.891 Personal history of nicotine dependence
CPT/HCPCS: 31500; 36415; 36600; 71045; 71275; 80048; 80053; 82375; 82728; 82805; 82948; 83050; 83615; 83735; 84100; 85025; 85027; 85380; 86140; 93005; 94002; 94003; 94618; 94640; 96372; 97110; 97116; 97162; 97165; 97530; 99285; A9270; C1751; C9113; J0456; J0696; J1100; J1650; J1940; J2250; J2704; J3010; J3475; J7030; J7120; Q9967

== ENCOUNTER 2021-07-20 08:53 | Outpatient (CLI) | payer OTHER, SELFPAY ==
--- NOTE | 2021-07-21 16:14 | WPDPFTINT ---
PFT Procedure Performed PFT Procedure Performed Spirometry with Pre/Post Bronchodilator Plethysmography (Lung Vol) Diffusing Cap (DLCO) Flow Vol Loop PFT Interpretation DOS: 07/20/2021 REQUESTING: Dr Patel REASON FOR TESTING: Post COVID PULMONARY FUNCTION TESTS Results are reliable and reproducible. Spirometry: FEV1 before bronchodilator is 89%, 2.5 L, normal. FVC is 82%, normal. FEV1/FVC ratio is 83%, normal. The BPN83-68% is 153%. There is no significant response to bronchodilator administration. Lung volumes: Total lung capacity is 76%, consistent with mild restriction. Residual volume is 77%, normal. RV/TLC is 37%, mildly elevated consistent with mild air trapping. Airway resistance is normal. Diffusion: DLCO is 69%, mildly decreased. DLCO/VA corrects to 110%. Flow volume loop: The expiratory limb is normal. The inspiratory limb is flattened. IMPRESSION: Mild restriction with mild air trapping which is consistent with obstruction. Mild diffusion impairment. Nonspecific abnormal inspiratory loop. Clinical correlation is advised. Nadege Patel MD
--- NOTE | 2021-07-21 16:34 | WPDSIXMINUTE ---
Six Minute Walk Procedure Procedure Performed Pulmonary Stress Test (6 min walk) Six Minute Walk Six Minute Walk: DOS: 07/20/2021 REQUESTING: Dr Patel REASON FOR TESTING: Post COVID SIX MINUTE WALK This test was conducted per ATS guidelines. The patient performed this study breathing room air. The initial saturation was 94% and the pulse was 87. He walked for 6 minutes without stopping. The lowest saturation was 89%. He walked a total of 1300 feet / 396.2 meters which is a normal distance for his age. His ending saturation during recovery was 90% and his heart rate was 120 beats per minute. This is an abnormal response to exercise. IMPRESSION: This walk study does not show ulises hypoxemia. He does not require oxygen with exertion. He has an abnormal pattern with his heart rate remaining elevated after exercise at 120 beats per minute and his saturation remaining at 90% instead of returning to baseline. This may be a result of his prior COVID infection. Clinical correlation advised.
== END 2021-07-20 08:54 | disposition home or self-care (01) ==
LOC: ANHPFT 08:54
PROVIDERS: PCP Physician Assistant; Visit Provider Internal Medicine Critical Care Medicine
DX: U09.9 Post COVID-19 condition, unspecified (principal)
CPT/HCPCS: 94060; 94618; 94726; 94729

== ENCOUNTER 2022-01-09 08:02 | Outpatient (CLI) | payer OTHER, SELFPAY ==
[2022-01-09 08:49] VITALS: PULSE 104; O2SAT 93
[2022-01-09 08:55] VITALS: PULSE 98; O2SAT 88
[2022-01-09 08:56] VITALS: PULSE 90; O2SAT 89
[2022-01-09 09:39] VITALS: PULSE 95; O2SAT 92
--- NOTE | 2022-01-09 09:39 | HOMEO2EVAL ---
Evaluation was performed at [facility] Home Oxygen Evaluation RC: Home Oxygen (O2) Evaluation Start: 01/09/22 09:38 Freq: Status: Active Protocol: RPE Activity Type Activity Date Activity User E-sign Co-sign Detail Recorded Client Recorded Date Recorded By Document 01/09/22 08:49 KRM [email or web address] 01/09/22 09:39 KRM Document 01/09/22 08:55 KRM [email or web address] 01/09/22 09:39 KRM Document 01/09/22 08:56 KRM [email or web address] 01/09/22 09:39 KRM Document 01/09/22 09:39 KRM [email or web address] 01/09/22 09:39 KRM 01/09/22 01/09/22 01/09/22 08:49 08:55 08:56 Home O2 Evaluation Test Phase Resting Exercise Exercise Oxygen Delivery Room Air Room Air Nasal Cannula Oxygen Flow Rate (L/min) 1 Pulse Oximetry (90-100 %) 93 88 L 89 L Pulse Rate (60-100 beats/min) 104 H 98 90 Activity Tolerance Good Good Ambulation Distance (feet) Ambulation Distance (meters) Home Oxygen Evaluation Comments Treatment Charges 01/09/22 09:39 Home O2 Evaluation Test Phase Exercise Oxygen Delivery Nasal Cannula Oxygen Flow Rate (L/min) 2 Pulse Oximetry (90-100 %) 92 Pulse Rate (60-100 beats/min) 95 Activity Tolerance Good Ambulation Distance (feet) 600 Ambulation Distance (meters) 182.87 Home Oxygen Evaluation Comments 2LPM O2 WITH ACTIVITY. Treatment Charges O2 Evaluation - Outpatient
--- NOTE | 2022-01-13 18:58 | P.PCNPFT_ITS ---
PFT Procedure Performed PFT Procedure Performed Spirometry with Pre/Post Bronchodilator Plethysmography (Lung Vol) Diffusing Cap (DLCO) Flow Vol Loop PFT Interpretation DOS: 01/09/2022 REQUESTING: Dr Patel REASON FOR TESTING: Shortness of breath PULMONARY FUNCTION TESTS Results are reliable and reproducible. 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 Spirometry: The pre-bronchodilator FEV1 is 86%, 2.4 L, normal. The pre- bronchodilator FVC is 79%, 2.9L, normal. FEV1/FVC is 83%, normal. There is a 6% decrease in FVC, 80%, normal. There is a 2% decrease in FVC, 77%, 2.83 L, normal. The CQL09-25% is 146%, 1.38 L, normal. There is no significant change in PNW25-08% with bronchodilator. Lung volumes: Total lung capacity is decreased, 60%, 3.73 L, below normal. FRC is decreased, 48%, 1.56 L. ERV is decreased, 33%, 0.43 L. RV is decreased, 37%, 0.83L. RV/TLC is decreased 22%. Diffusion: DLCO mildly decreased 62%. DLCO/RV is normal 102%. Flow volume loop: The inspiratory limb is not reproducible. There is one complete inspiratory loop that is complete, smaller than normal. IMPRESSION: There is a moderate restrictive impairment without obstruction, and a mild diffusion impairment. Compared to a prior study 07/20/2021, the FEV1 is similar to today, 89% and 2.5 L then compared to 86% 2.4 L now. The FVC was 82%, 3 L, similar to today, 79% and 2.9 L. There was no airflow obstruction and change with bronchodilator. The TLC has decreased, previously 76%, 4.74, now 60%, 3.73 L.. The was 56%, now 48%. The RV is smaller, 77%, now 37%. Diffusion is lower, 69% and now 62%. There is more restriction and more diffusion impairment. Nadege Patel MD
== END 2022-01-09 08:03 | disposition home or self-care (01) ==
LOC: ANHPFT 08:05
PROVIDERS: PCP Physician Assistant; Visit Provider Internal Medicine Critical Care Medicine
DX: U09.9 Post COVID-19 condition, unspecified (principal)
CPT/HCPCS: 94060; 94618; 94726; 94729

== ENCOUNTER 2022-04-25 07:39 | Outpatient (CLI) | payer OTHER, SELFPAY ==
--- NOTE | 2022-05-22 16:22 | WPDSLEEPSTUD ---
Sleep Study Date of Study: 04/25/22 Ordering Provider: Claude Craig MD,[facility] Interpreting Physician: Liz Momin, DO Sleep Study Type: Split Polysomnogram Height: 1.68 m Weight: 107.501 kg Body Mass Index: 38.2 Neck Circumference (inches): 16.5 [place]: 13 Reason for Sleep Study The patient had an HSAT on 01/27/2022 that showed a 3% AHI of 16.8 and a 4% JOHN of 9.2. Sleep History The patient is a 71-year-old male with hypertension, hyperlipidemia, sick sinus syndrome status post pacemaker placement, hyperthyroidism and anemia that had a sleep study ordered by his baseball winder for evaluation of sleep apnea. The patient had a home sleep test in January 2022 that showed sleep apnea. The patient denies awakening from sleep short of breath. He denies awakening at night with heartburn, belching or cough. He denies snoring loud enough that others complain. He denies having trouble sleeping when he has a cold. He denies waking up gasping for air throughout the night. He denies having breathing problems at night observed by himself or others. He denies sweating excessively at night. He denies having heart palpitations or irregular heartbeats during the night. He rarely falls asleep during the day but never while driving. He denies sleep paralysis and cataplexy. He denies having trouble at school or work due to sleepiness. He rarely experiences vivid dreamlike scenes upon awakening or falling asleep. He denies feeling afraid of going to sleep. He denies having nightmares. He rarely remembers his dreams. He rarely has thoughts racing through his mind. He denies feeling sad, depressed or anxious. He denies having muscular tension. He rarely notices parts of his body jerk. He denies kicking during the night. He denies having crawling and aching feelings in his legs as well as leg pain during the night. He denies grinding his teeth during sleep awakening with morning jaw pain. He denies being bothered by pain during the day and denies being awakened by pain during the night. He rarely wakes up feeling stiff in the morning. He rarely wakes up with sore or achy muscles. He rarely wakes up with pain in the neck, spine or other joints. He goes to bed at 10:00 p.m. on both weekdays and weekends. It takes him 10-20 minutes to fall asleep. He wakes up once throughout the night to urinate. He is able to fall asleep within a few minutes. He wakes up between 5-6 a.m. on both weekdays and weekends. He typically gets 6-8 hours of sleep per night. He does not stay in bed after waking up in the morning. He currently lives with his . He does not consume any caffeinated beverages within 2 hours of bedtime. He does not engage in physical exercise before bedtime. He will watch television before falling asleep. He denies taking naps in the afternoon or the evening. He drinks 1 caffeinated soda per day. He denies tobacco, alcohol and recreational drug use. [facility] Past Medical History Medical History Acute respiratory failure with hypoxia September 2020 Asbestos exposure CKD (chronic kidney disease) History of sick sinus syndrome History of smoking Hyperlipidemia Hypertension Pacemaker Rhinitis, chronic Severe epistaxis angiographic embolization Statin myopathy Social History Social History Social History: retired, lives at home with his . Smoking status: Former smoker Tobacco type: cigarettes Alcohol intake: unknown Substance use: unknown Spiritual care concerns: No Medications Home Medications Medication Instructions Recorded Confirmed Type Vitamin D3 1 tablet PO DAILY 10/13/20 01/24/22 History aspirin 81 mg tablet 81 mg PO DAILY 10/13/20 01/24/22 History ezetimibe 10 mg tablet 10 mg PO DAILY 10/13/20 01/24/22 History fenofibrate nanocrystallized 145 145 mg PO DAILY 10/13/20 01/24/22
[2022-05-22 16:33] VITALS: BMI 38.2
== END 2022-04-26 06:21 | disposition home or self-care (01) ==
DX: G47.33 Obstructive sleep apnea (adult) (pediatric) (principal)
CPT/HCPCS: 95811

== ENCOUNTER 2022-12-21 08:08 | Outpatient (CLI) | payer OTHER, SELFPAY ==
[2022-12-21 08:30] VITALS: PULSE 67; O2SAT 98
[2022-12-21 08:35] VITALS: PULSE 113; O2SAT 95
[2022-12-21 08:45] VITALS: PULSE 82; O2SAT 96
--- NOTE | 2022-12-21 11:25 | HOMEO2EVAL ---
Evaluation was performed at [facility] Home Oxygen Evaluation RC: Home Oxygen (O2) Evaluation Start: 12/21/22 11:21 Freq: Status: Active Protocol: RPE Activity Type Activity Date Activity User E-sign Co-sign Detail Recorded Client Recorded Date Recorded By Document 12/21/22 08:30 JAMES [email or web address] 12/21/22 11:24 JAMES Document 12/21/22 08:35 JAMES [email or web address] 12/21/22 11:24 JAMES Document 12/21/22 08:45 JAMES [email or web address] 12/21/22 11:24 JAMES 12/21/22 12/21/22 12/21/22 08:30 08:35 08:45 Home O2 Evaluation [Oxygen] -Test Phase Resting Exercise Resting -Oxygen Delivery Room Air Room Air Room Air [Pulse Oximetry] -Pulse Oximetry (90-100 %) 98 95 96 [Pulse Rate] -Pulse Rate (60-100 beats/min) 67 113 H 82 [Comments] -Home Oxygen Evaluation Comments 1000 FEET. NO HOME O 2NEEDED AT THIS TIME. [Charges] -Treatment Charges O2 Evaluation - Outpatient
== END 2022-12-21 08:09 | disposition home or self-care (01) ==
PROVIDERS: Visit Provider Physician Assistant
DX: J96.11 Chronic respiratory failure with hypoxia (principal)
CPT/HCPCS: 94618